=== PATIENT | female | born 1940 | race Caucasian/White ===

== ENCOUNTER → 2017-10-23 09:17 | Outpatient (CLI) | payer MEDICARE, OTHER, SELFPAY ==
--- NOTE | 2017-10-23 09:24 | CDU_ITS ---
Reason For Study: SYNCOPE Rt. Velocities/BP Lt. Velocities/BP Prox CCA 82.7/8.8 cm/sec. Prox CCA 79.2/11.7 cm/sec. Mid CCA 83.3/12.9 cm/sec. Mid CCA 76.8/11.1 cm/sec. Dist CCA 83.3/12.9 cm/sec. Dist CCA 72.7/11.1 cm/sec. Prox ICA 96.2/15.9 cm/sec. Prox ICA 233.0/39.3 cm/sec. Mid ICA 179.0/28.5 cm/sec. Mid ICA 238.0/38.0 cm/sec. Dist ICA 117.0/2.2 cm/sec. Dist ICA 127.0/20.3 cm/sec. Rt. ICA/CCA = 2.2. Lt. ICA/CCA = 3.1. Prox ECA 263.0/9.2 cm/sec. Prox ECA 246.0/11.8 cm/sec. Rt. Vert. 59.2/10.6 cm/sec. Lt. Vert. 63.9/12.3 cm/sec. Right Extracranial There is intimal thickening but no significant atherosclerotic plaque noted in the right common carotid artery. There is heterogeneous, irregular atherosclerotic plaque noted in the right internal carotid artery. There is heterogeneous, irregular atherosclerotic plaque noted in the right external carotid artery. Antegrade flow is noted in the right vertebral artery. Left Extracranial There is heterogeneous, irregular atherosclerotic plaque noted in the left common carotid artery. There is heterogeneous, irregular atherosclerotic plaque noted in the left internal carotid artery. There is heterogeneous, irregular atherosclerotic plaque noted in the left external carotid artery. Antegrade flow is noted in the left vertebral artery. Procedure Carotid Duplex [id number]. Exam performed in department. 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 Moderate stenosis right external carotid Irregular calcific plague at the proximal left internal carotid with >70% stenosis. Moderate stenosis left external carotid Patent and antegrade vertebrals bilaterally Ordering Physician: Tomi Grider Referring Physician: Hailee Hardin Performed By: Rochelle Olson RVT
--- NOTE | 2017-10-23 10:15 | ECHOD_ITS ---
Reason For Study: Palps, SOB Procedure This was a 2D Doppler, Color Flow transthoracic echocardiogram. Exam performed in department. Left Ventricle Normal LV size. Moderate concentric left ventricular hypertrophy. Left ventricular systolic function is normal. The estimated ejection fraction is 65 %. Transmitral diastolic flow velocities suggest moderate (stage 2) diastolic dysfunction (pseudonormal pattern). No regional wall motion abnormalities noted. Right Ventricle Normal RV size. Normal systolic function. Atria Normal left atrium. Normal right atrium. Mitral Valve Normal mitral valve. Mild (1+) eccentric mitral valve insufficiency. Tricuspid Valve Normal tricuspid valve. Mild (1+) tricuspid valve insufficiency. Pulmonary artery systolic pressure is 28 mmHg. Aortic Valve Trisinus/trileaflet aortic valve. Mild focal aortic valve calcification. Pulmonic Valve Normal pulmonic valve. Great Vessels Normal aortic root. The pulmonary artery is normal size. Normal inferior vena cava. Pericardium/Pleural No pericardial effusion. MMode/2D Measurements & Calculations LVIDd: 4.4 cm IVSd: 1.5 cm LVOT diam: 2.2 cm LVIDs: 2.1 cm LVPWd: 1.4 cm LVOT area: 3.8 cm2 FS: 53.1 % Ao root diam: 3.4 cm LAV(MOD-bp): 48.0 ml LA A4 area: 14.7 cm2 LA dimension: 4.7 cm LAV(MOD-bp) Indexed: 25.2 ml/m2 LAV(MOD-sp2): 61.2 ml LAV(MOD-sp4): 37.2 ml RA A4 area: 13.0 cm2 Doppler Measurements & Calculations MV E max aurelio: 125.2 cm/sec Lat Peak E' Aurelio: 10.4 cm/sec Med Peak E' Aurelio: 4.8 cm/sec MV A max aurelio: 98.8 cm/sec E/E' lat: 12.0 E/E' med: 26.2 MV E/A: 1.3 Ao V2 max: 186.7 cm/sec LV V1 max: 126.6 cm/sec PA V2 max: 109.6 cm/sec Ao max P.9 mmHg LV V1 max P.4 mmHg VIVIAN(V,D): 2.6 cm2 TR max aurelio: 239.8 cm/sec TR max P.0 mmHg Interpretation Summary Normal LV size. Moderate concentric left ventricular hypertrophy. Left ventricular systolic function is normal. The estimated ejection fraction is 65 %. Transmitral diastolic flow velocities suggest moderate (stage 2) diastolic dysfunction (pseudonormal pattern). Ordering Physician: Tomi Grider Referring Physician: Hailee Hardin Performed By: Raven Gambino RDCS
== END ==
PROVIDERS: Family Provider Family Medicine; PCP Family Medicine; Visit Provider Internal Medicine Cardiovascular Disease
DX: R55 Syncope and collapse (principal); I25.10 Atherosclerotic heart disease of native coronary artery without angina pectoris; Z95.1 Presence of aortocoronary bypass graft; R06.00 Dyspnea, unspecified; R00.2 Palpitations
CPT/HCPCS: 93306; 93880

== ENCOUNTER → 2017-11-17 14:39 | Outpatient (CLI) | payer MEDICARE, OTHER, SELFPAY ==
--- NOTE | 2017-11-17 14:41 | CT_ITS ---
STUDY: CT ANGIOGRAM OF THE NECK WITH IV CONTRAST. REASON FOR EXAM: Female, 77 years old. Left carotid stenosis. RADIATION DOSAGE (If Supplied By Facility): CTDIvol = ( 20.8+14.7 ) mGy, DLP = ( 457.44 ) mGycm. Thank you Individualized dose optimization techniques were used for this CT.? TECHNIQUE: Isovue-370 100 mL IV contrast. Thin slice helical CT angiogram was performed of the neck with curve planar, coronal and sagittal MIP, and 3-D volumetric reformatted images saved to the PACS archive. COMPARISON: Ultrasound carotid Doppler 10/23/2017. FINDINGS: A complex solid enhancing nodule of the left thyroid gland requires additional characterization with ultrasound to rule out neoplasm. The nodule measures approximately 2.2 cm in diameter. Cervical and facial soft tissues within the [id number] otherwise exhibit no acute process. Craniofacial osseous structures are normal. The sinuses are acutely clear. The right maxillary sinus is developmentally small compared to the left. There is mild multilevel cervical spondylosis. There is upper thoracic kyphosis and mild osteopenia. There is evidence of prior median sternotomy. No acute intracranial process is evident. Limited evaluation of the intracranial vasculature reveals no acute abnormality. Aortic arch nondilated, mild atherosclerosis. Next line widely patent bovine cervical arch branching. Normal bilateral subclavian arteries. Right carotid artery mild plaque of the bulb and bifurcation, minimal narrowing of the proximal ICA, less than 50% stenosis. Left carotid artery moderate calcified plaque in the wall of the vessel at the bulb and bifurcation, with only very slight narrowing of the origin of the ICA, no significant stenosis. There is moderate narrowing of the origin of the external carotid artery. Approximately 50% stenosis. The internal carotid arteries are thereafter patent through the skull base to the [place]. Normal bilateral vertebral arteries, cervical course and intracranial. CT/CTA Neck W/WO Contrast IMPRESSION: There is no evidence of hemodynamically significant carotid artery stenosis. Mild plaque of the bulb and bifurcation on the right, mild to moderate plaque of the bulb and bifurcation on the left. Normal vertebral arteries. Electronically Signed: Flaquito Byrd, at 18:00 EDT Tel , Service support ,
[2017-11-17 15:06] LABS: CREATININE FINGERSTICK 0.7 mg/dL (0.55-1.02); EGFR FINGERSTICK > 60.0000 mL/min (>60)
== END ==
PROVIDERS: Family Provider Family Medicine; PCP Family Medicine; Visit Provider Surgery
DX: Z01.812 Encounter for preprocedural laboratory examination (principal); I65.22 Occlusion and stenosis of left carotid artery
CPT/HCPCS: 70498; Q9967

== ENCOUNTER 2017-12-04 11:15 | Day surgery (SDC) | payer MEDICARE, OTHER, SELFPAY ==
[2017-12-04] VITALS (7 sets, daily range): BP systolic 146–174; BP diastolic 49–60; PULSE 18–58; RESP 16–18; TEMP 36.2–37.1; O2SAT 93–96; BMI 27.6
[2017-12-04 11:46] LABS: Hematocrit 36.9 % (37-47); Hemoglobin 12.1 g/dl (12.0-15.0); Mean Corp Hgb Conc 32.8 g/gl (32-36); Mean Corpuscular Hgb 28.3 pg (27.0-32.0); Mean Corpuscular Volume 86.4 fL (81-99); Mean Platelet Vol. 10.9 fl (6.2-12.0); Platelet Count 151 K/mm3 (150-450); RBC Distribution Width CV 15.7 % (11.6-14.6); RBC Distribution Width SD 49.7 fl (35.1-43.9); Red Blood Count 4.27 M/mm3 (4.2-5.4); Scan Indicated on CBC? Y/N NO; White Blood Count 4.4 K/mm3 (4.4-11.0)
[2017-12-04 12:00] LABS: Bedside Glucose 174 mg/dL (70-110)
[2017-12-04 12:01] LABS: Anion Gap 10 (5-15); BUN 16 mg/dL (7-18); Calcium,Total 8.8 mg/dL (8.5-10.1); Chloride 103 mmol/L (98-107); Creatinine, Serum 1.07 mg/dL (0.55-1.02); EST Glomerular Filtration Rate 53 mL/min (>60); Est Glom Filt Rate - Afr Amer 64 mL/min (>60); Glucose 173 mg/dL (74-106); Potassium 3.8 mmol/L (3.5-5.1); Sodium Level 141 mmol/L (136-145)
[2017-12-04] MEDS: BUPIVACAINE LIPOSOME/PF 20 ML VIAL OPERA.SITE (12:44)
--- NOTE | 2017-12-04 13:30 | HEM_PTH ---
PATIENT: EKATERINA ROBERTS [place] [facility] [place][id number] AGE/SX: 77/F ROOM: RE12/04/[address]: Dr. David Lopez MD : 1940 BED: DIS: 12/04/2017 SPEC #: [id number] RECD: 12/05/17 10:20 STATUS: GEMA RETiarra #: [id number] CHEYANNE: 12/04/17 13:[address]: David Lopez DEPT: SURGICAL PATHOLOGY RECD BY: Danni Nice ENTERED: 12/05/17 11:24 SP TYPE: HEMORRHOID OTHR DR: aHilee Hardin DO Tissues: HEMORRHOIDS Procedures: Surgery Specimen Level III HEADER OPERATION: Hemorrhoidectomy PRE-OP DIAGNOSIS: Hemorrhoids TISSUE SUBMITTED: Hemorrhoids MICROSCOPIC DIAGNOSIS Hemorrhoids: Pieces of squamous mucosa with focal area of transitional zone mucosa with congested and dilated blood vessels consistent with hemorrhoid. SJ:cata 12/08/17 COMMENT Case has been reviewed in consultation with Dr. Cardenas who concurs with the above diagnosis. IDC:AM MICROSCOPIC DESCRIPTION Slides are reviewed. GROSS DESCRIPTION Received in fixative is one container labeled with the patient's name and designated hemorrhoids. The specimen consists of two glistening fragments of chen mucosa with attached hemorrhagic submucosal tissue that in aggregate measure 3.5 x 3 x 1.6 cm. No mass lesions are identified. Auto Damage Trainee sections are submitted in two cassettes. / AM:cata 12/05/17 TC:5 CPT: 73531
[2017-12-04] MEDS: Dibucaine 30 GM Tube 1 APPLIC (13:50)
--- NOTE | 2017-12-04 14:43 | PCM.DC.REC ---
Discharge Diet: No Restrictions Discharge Activity: Return to Normal Activity, May Not Drive - while you are taking narcotic pain medications. Do not drive, work with heavy equipment or sign legal documents for 24 hours after your surgery. Additional Activity Instructions:: Sitz baths in warm soapy water for approximately 20 minutes will be soothing. You may remove any Vaseline gauze per rectum tomorrow morning. He may apply the topical dibucaine numbing ointment every 2 hours as needed. I encourage utilizing mineral oil 30 cc within juice or food daily for 1 week. Allergies/Adverse Reactions: Allergies codeine Allergy (Unknown, Verified 12/03/17 09:51) Unknown adhesive tape Adverse Reaction (Verified 12/03/17 09:51) unknown Sulfa (Sulfonamide Antibiotics) Adverse Reaction (Verified 12/03/17 09:51) unknown Medications to take at Discharge citalopram 20 mg tablet 20 mg PO QDAY 10/01/17 ezetimibe 10 mg tablet 10 mg PO QDAY 10/01/17 fluticasone 50 mcg/actuation nasal spray,suspension 1 spray INTRANASAL QDAY PRN 10/01/17 gabapentin 300 mg capsule 600 mg PO BID cap 10/01/17 hydrochlorothiazide 25 mg tablet 25 mg PO QAM 10/01/17 insulin aspar prot-insulin aspart 100 unit/mL (70-30) subcutaneous pen 28 unit SC DAILY ml 10/01/17 insulin glargine (U-100) 100 unit/mL (3 mL) subcutaneous pen 16 unit SC QHS ml 10/01/17 levothyroxine 150 mcg capsule 150 mcg PO QDAY 10/01/17 lisinopril 40 mg tablet 40 mg PO QDAY 10/01/17 metformin ER 500 mg tablet,extended release 24 hr 500 mg PO BID 10/01/17 metoprolol succinate ER 50 mg tablet,extended release 24 hr 50 mg PO QDAY 10/01/17 olopatadine 0.2 % eye drops 1 drp OPHTHALMIC Q24H 10/01/17 omeprazole 40 mg capsule,delayed release 40 mg PO BID 10/01/17 tramadol 50 mg tablet 50 mg PO Q6H PRN 10/01/17 zolpidem 10 mg tablet 10 mg PO QHS 10/01/17 betamethasone dipropionate 0.05 % topical cream 1 applic TOPICAL QDAY PRN 10/30/17 amlodipine 10 mg tablet 5 mg PO QDAY tab 10/31/17 docusate sodium 100 mg capsule 100 mg PO BID 11/20/17 polyethylene glycol 3350 17 gram/dose oral powder 1 dose PO DAILY 11/20/17 Cholecalciferol (Vitamin D3) [Vitamin D3] 2,000 unit PO DAILY 12/03/17 Milk Thistle 250 mg PO DAILY 12/03/17 Mv-Mn/Folic Acid/Calcium/Vit K [Women's 50 Plus Daily Formula] 1 each PO DAILY 12/03/17 [place]-3 Fatty Acids/Fish Oil [Fish Oil 1,000 mg Capsule] 1 each PO DAILY 12/03/17 Metronidazole 250 mg PO TID #15 tab 12/04/17 Psyllium Husk (with Sugar) [Metamucil Packet] 3.4 gm PO DAILY #1 packet 12/04/17 traMADol [Ultram] 50 mg PO Q6H PRN PRN #10 tablet 12/04/17 The following prescriptions were given: traMADol [Ultram] 50 mg PO Q6H PRN PRN #10 tablet PRN Reason: Pain Psyllium Husk (with Sugar) [Metamucil Packet] 3.4 gm PO DAILY #1 packet Metronidazole 250 mg PO TID #15 tab Primary Care Physician: Hailee Hardin MD [Primary Care Provider] - Test Results: Test results from this visit will be discussed in further detail at your follow-up appointment, if applicable. Please Follow Up With: David Lopez MD - [phone] When: Plan to have a follow up approximately 3 weeks after surgery.
[2017-12-04] MEDS: Lubricating Jelly 60 GM Tube 30 GM TOPICAL (14:50)
[2017-12-04] MEDS: Bupivacaine 0.25% 30 ML Vial ×2 (15:50)
--- NOTE | 2017-12-04 15:54 | PCM.OPRPT ---
Problem List (1) Hemorrhoids Status: Acute Qualifiers: Hemorrhoid type: third degree Qualified Code(s): K64.2 - Third degree hemorrhoids Report of Operation Date of Procedure: 12/04/17 Pre-Operative Diagnosis: Grade 3 prolapsing internal and external hemorrhoids with bleeding Post-Operative Diagnosis: Same Surgery/Procedure Performed:: Extensive surgical hemorrhoidectomy Description of Surgical Findings:: Timeout and informed consent was obtained. 77-year-old female was taken out from. She was placed prone on the table. Cefotetan 2 g given intravenously. 0.25% Marcaine was used as a local anesthetic a total 35 cc was used. At the completion of the procedure Exparel diluted to a total of 30 cc was additionally injected. The perianal area was inspected. Posteriorly there was an internal hemorrhoidal bulk easy friability bleeding with significant external component. An apical suture of 2-0 chromic was placed. The skin was sharply excised and the external anus. I then identified the sphincter complex and preserve that. Harmonic Scalpel was used to excise the exuberant internal and external disease. I then used the running locking 2-0 chromic. Obtaining hemostasis was indeed challenging. All needle holes bled readily. I placed an apical suture of 0 Vicryl as a figure 8 suture to assure control of the major venous stalk. Having approximated that mucosa I dressed a similar area anteriorly. It had significant amount of internal and external disease but not the friable bleeding component at the posterior aspect.. Similar procedure was performed with an apical suture of 2-0 chromic harmonic excision of the mass and then a roftyo-fo-dutlu suture of 0 Vicryl. Mucosa was approximated with running 2-0 chromic. Additional 2-0 chromic was used to achieve hemostasis. On the right lateral aspect there is an internal hemorrhoid which I ligated with a 2-0 chromic mewzxs-fb-rznhm suture. On the left lateral aspect there was a hypertrophic papilla that I excised with a harmonic scalpel. I then utilized a figure 8 suture of 2-0 chromic to ligate internal disease on the left as well. At the completion of the procedure pressure was held for hemostasis. I then utilized thrombin 5000 cc and saturated a Gelfoam pad loaded and inserted it per rectum. Cover dressings of Vaseline and gauze applied. Sponge and instrument and needle counts were reported the surgeon be correct. Specimen includes the hemorrhoids. Drains none. Blood loss 150 cc. She was taken to the recovery area in sagittal condition there is no apparent complication. David Lopez M.D., F.A.C.S. Type of Anesthesia:: Local MAC Anesthesiologist: Dimas Murillo
[2017-12-04] MEDS: traMADol 50 MG Tablet PO (17:46)
== END 2017-12-04 18:25 | disposition home or self-care (01) ==
LOC: SDC 11:15 → AC 11:17
PROVIDERS: Family Provider Family Medicine; PCP Family Medicine; Visit Provider Surgery
PROC: (CPT 46260; principal; 2017-12-04 13:15)
DX: K64.2 Third degree hemorrhoids (principal); K21.9 Gastro-esophageal reflux disease without esophagitis; I65.23 Occlusion and stenosis of bilateral carotid arteries; E11.40 Type 2 diabetes mellitus with diabetic neuropathy, unspecified; K76.0 Fatty (change of) liver, not elsewhere classified; I10 Essential (primary) hypertension; E03.9 Hypothyroidism, unspecified; E78.5 Hyperlipidemia, unspecified; I25.10 Atherosclerotic heart disease of native coronary artery without angina pectoris; Z95.1 Presence of aortocoronary bypass graft; Z86.73 Personal history of transient ischemic attack (TIA), and cerebral infarction without residual deficits; Z79.4 Long term (current) use of insulin
CPT/HCPCS: 00902; 46260; 80048; 82962; 85027; 88304; J7120; J3490

== ENCOUNTER → 2018-05-19 13:29 | Outpatient (CLI) | payer MEDICARE, OTHER, SELFPAY ==
[2018-03-26 14:20] VITALS: BMI 28.4
--- NOTE | 2018-05-19 13:33 | CDU_ITS ---
Reason For Study: Bilateral carotid stenosis Rt. Velocities/BP Lt. Velocities/BP Prox CCA 87.4/9.97 cm/sec. Prox CCA 74.5/8.21 cm/sec. Mid CCA 75.6/11.1 cm/sec. Mid CCA 71.5/12.3 cm/sec. Dist CCA 65.7/11.1 cm/sec. Dist CCA 63.3/11.7 cm/sec. Prox ICA 107/25.9 cm/sec. Prox ICA 233/39.3 cm/sec. Mid ICA 171/25.5 cm/sec. Mid ICA 194/41.9 cm/sec. Dist ICA 107/21.2 cm/sec. Dist ICA 182/32.7 cm/sec. Rt. ICA/CCA = 2.26. Lt. ICA/CCA = 3.26. Prox ECA 202 cm/sec. Prox ECA 164 cm/sec. Rt. Vert. 69.2/12.3 cm/sec. Lt. Vert. 55.8/9.43 cm/sec. Right Extracranial There is intimal thickening but no significant atherosclerotic plaque noted in the right common carotid artery. There is heterogeneous, irregular atherosclerotic plaque noted in the right internal carotid artery. There is heterogeneous, irregular atherosclerotic plaque noted in the right external carotid artery. Antegrade flow is noted in the right vertebral artery. Left Extracranial There is heterogeneous, smooth atherosclerotic plaque noted in the left common carotid artery. There is heterogeneous, irregular atherosclerotic plaque noted in the left internal carotid artery. There is heterogeneous, irregular atherosclerotic plaque noted in the left external carotid artery. Antegrade flow is noted in the left vertebral artery. There is heterogeneous, irregular atherosclerotic plaque noted in the left bulb. Procedure Carotid Duplex [id number]. Exam performed in department. Interpretation Summary Calcific irregular plague at the proximal right internal and external carotid arteries. 50-69% stenosis right internal carotid 50-99% stenosis right external carotid Calcific irregular plague at the proximal left internal and external carotid arteries. >70% stenosis left internal carotid <50% stenosis left external carotid Patent and antegrade vertebrals bilaterally Ordering Physician: David Lopez Referring Physician: Hailee Hardin Performed By: Rochelle Olson RVT and Student
== END ==
PROVIDERS: Family Provider Family Medicine; PCP Family Medicine; Referring Provider Surgery; Visit Provider Surgery
DX: I65.23 Occlusion and stenosis of bilateral carotid arteries (principal)
CPT/HCPCS: 93880

== ENCOUNTER → 2018-05-28 14:15 | Outpatient (CLI) | payer MEDICARE, OTHER, SELFPAY ==
[2018-05-25 12:58] VITALS: BMI 28.4
--- NOTE | 2018-05-28 14:39 | US_ITS ---
STUDY: THYROID ULTRASOUND REASON FOR EXAM: Female, 78 years old. Nodules TECHNIQUE: Ultrasound evaluation of the thyroid was performed with real-time and static arango-scale imaging. COMPARISON: None. FINDINGS: RIGHT LOBE: Status post right thyroidectomy. LEFT LOBE: Status post left thyroidectomy. There is a 2.3 x 2.0 x 1.5 cm complex nodule at the left thyroid bed. US/Thyroid IMPRESSION: Complex nodule is noted in the left thyroid bed. Patient is status post total thyroidectomy. Electronically Signed: Charles Gtz DO at 23:31 EST Tel [phone], Service support ,
== END ==
PROVIDERS: Family Provider Family Medicine; PCP Family Medicine; Referring Provider Physician Assistant; Visit Provider Physician Assistant
DX: E04.1 Nontoxic single thyroid nodule (principal)
CPT/HCPCS: 76536

== ENCOUNTER → 2018-06-10 15:30 | Outpatient (CLI) | payer MEDICARE, OTHER, SELFPAY ==
--- NOTE | 2018-06-10 15:30 | ASPS_PTH ---
PATIENT: EKATERINA ROBERTS LOC: [facility] U#:[id number] AGE/SX: 84/F ROOM: RE06/10/[address]: Dr. David Lopez MD : 1940 BED: DIS: SPEC #: [id number] RECD: 06/11/18 08:18 STATUS: GEMA EV #: [id number] CHEYANNE: 06/10/18 15:[address]: David Lopez DEPT: CYTOLOGY RECD BY: Bebeto Oneil ENTERED: 06/11/18 12:15 SP TYPE: ASPIRATION OTHR DR: Hailee Hardin DO Tissues: Thyroid gland, NOS Procedures: Special Stain Group II Cytology Other HEADER OPERATION: Left thyroid FNA PRE-OP DIAGNOSIS: Left thyroid nodule TISSUE SUBMITTED: Left thyroid slides x6 DIAGNOSIS CYTOLOGY Fine needle aspiration, left thyroid nodule (smears): Adequate for evaluation. Negative, consistent with benign follicular/colloid nodule. Chronic inflammation. AM:cata 06/12/18 CYTOLOGY STUDY Slides are reviewed. CYTOLOGY GROSS Received are six smears labeled with the patient's name and designated per the requisition as left thyroid. Submitted for staining. / 06/11/18 TC:5 CPT: 75894
[2018-06-10 15:35] VITALS: BMI 28.4
== END ==
PROVIDERS: Family Provider Family Medicine; PCP Family Medicine; Referring Provider Surgery; Visit Provider Surgery
DX: E04.1 Nontoxic single thyroid nodule (principal)
CPT/HCPCS: 88161; 88313

== ENCOUNTER → 2018-09-24 | Outpatient (CLI) | payer MEDICARE, OTHER, SELFPAY ==
[2018-09-24 15:13] VITALS: BMI 28.8
--- NOTE | 2018-09-24 15:59 | RAD_ITS ---
STUDY: X-RAY CHEST REASON FOR EXAM: Female, 78 years old. Chest soreness for a couple of days. Patient has a loop in her chest that she claims has slipped down. TECHNIQUE: PA and lateral views of the chest. COMPARISON: None. FINDINGS: A wireless radiation monitor is seen in the lower medial soft tissues of the left anterior chest wall/breast. Prominent biapical interstitial densities have the appearance of chronic interstitial change. No consolidating infiltrate. There is no demonstrated pleural abnormality. Normal size heart. Sternal cerclage wires and vascular clips are present from a prior sternotomy and coronary artery bypass graft procedure (CABG). Normal mediastinum and pau. Normal visualized pulmonary arteries. There is atherosclerotic calcification of the aortic arch and descending thoracic aorta. There are minor multilevel degenerative changes and exaggerated kyphosis of the visualized thoracic spine. Normal visualized ribs, clavicles, and shoulders. There is no demonstrated abnormality of the visualized soft tissue structures of the upper abdomen. RAD/Chest PA and Lateral IMPRESSION: 1. Prior median sternotomy and CABG. 2. Wireless radiation monitor in the soft tissues of the medial inferior anterior left chest wall. 3. Chronic appearing interstitial densities in the bilateral lung apices. Electronically Signed: Enrrique Patel MD at 17:13 EDT , Service support ,
== END | disposition home or self-care (01) ==
LOC: RAD 15:58
PROVIDERS: Family Provider Family Medicine; PCP Family Medicine; Referring Provider Internal Medicine Cardiovascular Disease; Visit Provider Internal Medicine Cardiovascular Disease
DX: Z95.818 Presence of other cardiac implants and grafts (principal)
CPT/HCPCS: 71046

== ENCOUNTER → 2019-10-14 12:53 | Outpatient (CLI) | payer MEDICARE, SELFPAY ==
[2018-09-24 15:13] VITALS: BMI 28.8
--- NOTE | 2019-10-14 12:54 | US_ITS ---
STUDY: THYROID ULTRASOUND REASON FOR EXAM: Female, 79 years old. History of previous thyroidectomy, neck swelling TECHNIQUE: Ultrasound evaluation of the thyroid was performed with real-time and static arango-scale imaging. COMPARISON: 05/28/2018 FINDINGS: The thyroid has been previously removed. There is a stable heterogeneous partially calcified nodule in the left thyroid bed measuring 2.2 x 1.9 x 1.5 cm essentially unchanged from the previous study. No new suspicious findings. The regional lymph nodes are normal. US/Thyroid IMPRESSION: Stable complex nodule in the left thyroid bed partially calcified, another six-month follow-up is recommended to assure stability. No new suspicious findings Electronically Signed: Enrrique Ross MD at 14:11 EDT , Service support ,
--- NOTE | 2019-10-14 13:17 | CDU_ITS ---
Reason For Study: carotid stenosis Rt. Velocities/BP Lt. Velocities/BP Prox CCA 73.4/12.1 cm/sec. Prox CCA 66.2/11.3 cm/sec. Mid CCA 70.8/12.1 cm/sec. Mid CCA 69.5/10.2 cm/sec. Dist CCA 70.8/10.8 cm/sec. Dist CCA 54.1/8.0 cm/sec. Prox ICA 143.0/33.4 cm/sec. Prox ICA 66.2/13.5 cm/sec. Mid ICA 122.9/24.3 cm/sec. Mid ICA 220.9/39.6 cm/sec. Dist ICA 117.4/22.5 cm/sec. Dist ICA 192.5/21.5 cm/sec. Rt. ICA/CCA = 2.0. Lt. ICA/CCA = 3.2. Prox ECA 204.7 cm/sec. Prox ECA 148.5 cm/sec. Rt. Vert. 48.7/6.9 cm/sec. Lt. Vert. 47.5/6.9 cm/sec. Right Extracranial There is intimal thickening but no significant atherosclerotic plaque noted in the right common carotid artery. There is heterogeneous, irregular atherosclerotic plaque noted in the right internal carotid artery. There is heterogeneous, irregular atherosclerotic plaque noted in the right external carotid artery. Antegrade flow is noted in the right vertebral artery. Left Extracranial There is heterogeneous, irregular atherosclerotic plaque noted in the left common carotid artery. There is heterogeneous, irregular atherosclerotic plaque noted in the left internal carotid artery. There is heterogeneous, irregular atherosclerotic plaque noted in the left external carotid artery. Antegrade flow is noted in the left vertebral artery. There is heterogeneous, irregular atherosclerotic plaque noted in the left bulb. Procedure Carotid Duplex [id number]. The exam was diagnostic. Exam performed in department. Interpretation Summary Irregular calcific plaque at the proximal right internal carotid artery with 50 to 69% stenosis. >50% stenosis right external carotid Irregular calcific plaque at the proximal left internal carotid artery with 50 to 69% stenosis (possibly closer to 69%) <50% stenosis left external carotid Patent, antegrade vertebrals bilaterally Findings have not progressed since the previous examination of May 19, 2018 Ordering Physician: David Lopez Performed By: Devan Quach RVT
== END ==
PROVIDERS: PCP Family Medicine; Referring Provider Surgery; Visit Provider Surgery
DX: E04.1 Nontoxic single thyroid nodule (principal); I65.23 Occlusion and stenosis of bilateral carotid arteries
CPT/HCPCS: 76536; 93880

== ENCOUNTER → 2020-01-12 05:34 | Outpatient (CLI) | payer MEDICARE, SELFPAY ==
[2019-12-30 13:49] VITALS: BMI 29.6
--- NOTE | 2020-01-12 13:13 | STRESSREP ---
Stress Test Report Pharmacologic myocardial perfusion stress test. 79-year-old lady with a history of coronary artery bypass surgery and hypertension. Stress protocol: Resting EKG demonstrates normal sinus rhythm with a rate of 63 bpm normal intervals are noted resting blood pressure is 164/70 mmHg. 0.4 mg of regadenoson was infused per usual protocol followed by rapid venous saline flush injection continuous EKG monitoring was performed. The maximum heart rate attained was 90 bpm which was 64% of max impacted heart rate the maximum workload was 1 metabolic equivalent. At rest there were no ST or T wave changes noted to suggest abnormal flow reserve at peak infusion nonspecific ST-T wave changes were noted. Myocardial perfusion protocol. 11.3 mCi of technetium 99m sestamibi was injected at rest. 0.4 mg of regadenoson was infused per usual protocol. At peak infusion 33.6 mCi of technetium 99m sestamibi was injected. Stress and rest images were reconstructed and compared in the short axis vertical long horizontal long axis. Gated images were also obtained Perfusion SPECT analysis: Review of the stress images demonstrate normal uptake of tracer noted in all areas of the myocardium the resting images similar demonstrate normal uptake of tracer noted in all areas of the myocardium. No areas of reversibility are noted suggest ischemia no previous infarct is noted. Gated SPECT analysis: The gated ejection fraction is noted to be 80%. Conclusion: Normal pharmacologic myocardial perfusion stress test. Preserved ejection fraction.
== END ==
PROVIDERS: PCP Family Medicine; Referring Provider Internal Medicine Cardiovascular Disease; Visit Provider Internal Medicine Cardiovascular Disease
DX: I25.10 Atherosclerotic heart disease of native coronary artery without angina pectoris (principal); Z95.1 Presence of aortocoronary bypass graft
CPT/HCPCS: 78452; 93017; A9500; A4216; J2785

== ENCOUNTER 2020-01-24 07:44 | Day surgery (SDC) | payer MEDICARE, SELFPAY ==
[2019-12-30 13:49] VITALS: BMI 29.6
--- NOTE | 2020-01-17 14:15 | RAD_ITS ---
HISTORY: pre heart cath, dyspnea ADDITIONAL HISTORY: None provided. COMPARISON: 09/24/2018 EXAMINATION/TECHNIQUE: XR Chest 2 Views Number of images including paperwork: 2 FINDINGS: LUNGS AND PLEURA: No consolidation, mass or pleural effusion. Minimal interstitial prominence appears similar. Apical pleural parenchymal scarring appears similar. CARDIAC SILHOUETTE: Stable. CABG changes. MEDIASTINUM AND KALIN: Unchanged aortic calcification and tortuosity. UPPER ABDOMEN: Unremarkable. SKELETON AND SOFT TISSUES: No acute findings. OTHER DEVICES AND HARDWARE: Left a small loop recorder. RAD/Chest PA and Lateral IMPRESSION: No acute cardiopulmonary abnormality. Apical pleural parenchymal scarring and minimal interstitial prominence appear similar. at [id number] Reported and signed by: Zaida James MD Electronically Signed: Zaida James MD at 7:57 EDT Tel , Service support ,
[2020-01-17 15:14] LABS: Absolute Lymphocyte Count 1.31 X10^3/uL (0.83-4.51); Absolute Neutrophil Count 3.8 X10^3/uL (2.0-7.7); Basophil# 0.06 X10^3/uL; Eosinophil# 0.17 X10^3/uL; Eosinophils% 2.8 % (0-5); Hematocrit 35.7 % (37-47); Hemoglobin 11.7 g/dL (12.0-15.0); Lymphocyte # 1.31 X10^3/ul (4.0); Lymphocyte % 21.7 % (19-41); Mean Corp Hgb Conc 32.8 g/dL (32-36); Mean Corpuscular Hgb 30.3 pg (27.0-32.0); Mean Corpuscular Volume 92.5 fL (81-99); Mean Platelet Vol. 10.9 fl (6.2-12.0); Monocyte# 0.63 X10^3/uL; Monocyte% 10.4 % (0-10); NRBC Flagged by Analyzer 0 % (0-5); Neutrophil # 3.83 X10^3/uL (2.7-7.7); Neutrophil % 63.6 % (47-70); Platelet Count 156 K/mm3 (150-450); RBC Distribution Width CV 13.2 % (11.6-14.6); RBC Distribution Width SD 44.9 fl (35.1-43.9); Red Blood Count 3.86 M/mm3 (4.2-5.4)
[2020-01-17 15:23] LABS: Anion Gap 7 (5-15); BUN 26 mg/dL (7-18); BUN/Creat Ratio 21.5 RATIO (10-20); Calcium,Total 8.7 mg/dL (8.5-10.1); Chloride 101 mmol/L (98-107); Creatinine, Serum 1.21 mg/dL (0.55-1.02); EST Glomerular Filtration Rate 45 mL/min (>60); Est Glom Filt Rate - Afr Amer 55 mL/min (>60); Glucose 259 mg/dL (74-106); Potassium 3.9 mmol/L (3.5-5.1); Sodium Level 135 mmol/L (136-145)
[2020-01-21 08:05] VITALS: BMI 29.6
--- NOTE | 2020-01-24 06:14 | HP_ITS ---
[facility] HPI History of Present Illness Details: EKATERINA ROBERTS, is a 79 F who presents to the office today for a follow up visit. She has a history of coronary artery disease status post coronary bypass surgery hypertension hyperlipidemia diabetes mellitus. She underwent quadruple coronary bypass surgery in 2004 . She says that she has been doing well other than fatigue and mild bilateral pitting edema she is also has some shortness of breath with activity as well as some palpitations. She has also had some chest discomfort which she describes as occasionally sharp but sometimes dull radiates from anterior to posterior and associated with some shortness of breath. She also says that she gets short of breath when she is talking. She has had occasional dizziness but no shorty syncope. She has had no neck arm or jaw discomfort suggest angina no claudication has been noted. She has also been compliant with all her medications. Her physical exam here today demonstrates clear lung sanchez regular rate and rhythm and no pedal edema. Intake Vital Signs 12/30/19 Height 5 ft 7 in 12/30/19 Weight: 189 lb 12/30/19 BMI 29.6 12/30/19 BP 141/74 H 12/30/19 Respiration 18 12/30/19 Pulse 64 12/30/19 Pulse Oximetry (%) 95 12/30/19 BMI 28.3 Intake Visit Reasons: 1 Y FU (r/s from -) Allergies codeine Allergy (Unknown, Verified 12/30/19 13:49) Unknown zolpidem [From Ambien] Allergy (Verified 12/30/19 13:49) syncope adhesive tape Adverse Reaction (Verified 12/30/19 13:49) unknown Sulfa (Sulfonamide Antibiotics) Adverse Reaction (Verified 12/30/19 13:49) unknown Medications citalopram 20 mg tablet 20 mg PO QDAY 10/01/17 [History Confirmed 12/30/19] gabapentin 300 mg capsule 600 mg PO BID cap 10/01/17 [History Confirmed 12/30/19] hydrochlorothiazide 25 mg tablet 25 mg PO QAM 10/01/17 [History Confirmed 12/30/19] insulin aspar prot-insulin aspart 100 unit/mL (70-30) subcutaneous pen 28 unit SC DAILY ml 10/01/17 [History Confirmed 12/30/19] lisinopril 40 mg tablet 40 mg PO QDAY 10/01/17 [History Confirmed 12/30/19] metformin 500 mg tablet,extended release 24 hr 500 mg PO BID 10/01/17 [History Confirmed 12/30/19] Cholecalciferol (Vitamin D3) [Vitamin D3] 2,000 unit PO DAILY 12/03/17 [History Confirmed 12/30/19] Mv-Mn/Folic AC/Calcium/Vit K1 [Women's 50 Plus Daily Formula] 1 ea PO DAILY 12/03/17 [History Confirmed 12/30/19] traMADol [Ultram] 50 mg PO Q6H PRN PRN #10 tab 12/04/17 [Rx Confirmed 12/30/19] dulaglutide 1.5 mg/0.5 mL subcutaneous pen injector 1.5 mg SC QWEEK 02/04/18 [History Confirmed 12/30/19] diltiazem HCl 180 mg capsule,extended release 24 hr 180 mg PO DAILY 03/26/18 [History Confirmed 12/30/19] cetirizine 10 mg capsule PO cap 09/24/18 [History Confirmed 12/30/19] melatonin 3 mg tablet 3 mg PO HS PRN 09/24/18 [History Confirmed 12/30/19] omeprazole 40 mg capsule,delayed release 40 mg PO DAILY cap 09/24/18 [History Confirmed 12/30/19] aspirin 81 mg tablet,delayed release 81 mg PO DAILY 10/03/18 [History Confirmed 12/30/19] metoprolol succinate 50 mg tablet,extended release 24 hr 50 mg PO QDAY #90 tab 10/06/19 [Rx Confirmed 12/30/19] ezetimibe 10 mg tablet 10 mg PO DAILY tab 12/30/19 [History Confirmed 12/30/19] isosorbide mononitrate 30 mg tablet,extended release 24 hr 30 mg PO DAILY #90 tab 12/30/19 [Rx Confirmed 12/30/19] levothyroxine 125 mcg tablet 125 mcg PO DAILY tab 12/30/19 [History Confirmed 12/30/19] Ejection fraction %: 65 to 70 PFSH Medical History Atherosclerosis of coronary artery of [place] heart without angina pectoris (Chronic) Essential (primary) hypertension (Chronic) Hyperlipidemia (Chronic) Peripheral arterial occlusive disease (Chronic) Bilateral carotid artery stenosis (Chronic) TIA (transient ischemic attack) (Resolved 2015) Carotid artery stenosis (Chronic) DVT (deep venous thrombosis) (Chronic) Hemorrhoid (Chronic) Hypothyroidism (Chronic) Left thyroid nodule (Chronic) Type 2 diabetes mellitus (Chronic) CVA (cerebral vascular accident) (Ruled-out) Surgical History H/O coronary artery bypass surgery (Chronic 01/13/05) H/O partial thyroidectomy (Resolved) H/O right inguinal hernia repair (Resolved) History of appendectomy (Resolved) History of hysterectomy (Resolved) History of open reduction and internal fixation (ORIF) procedure (Resolved) History of tonsillectomy (Resolved) Hx of cholecystectomy (Resolved) S/P hemorrhoidectomy (Resolved) Status post placement of implantable loop recorder (Inactive 2015) Family History Father CAD (coronary artery disease) Brother CAD (coronary artery disease) Social History (Updated 12/30/19 @ 14:[address] Tomi Grider MD) second hand exposure: No alcohol intake: never substance use type: does not use caffeine: Yes what type of physical activity do you participate in: walking frequency: 1-2 times per week seatbelt use: always ROS Const Const: Negative for fatigue, weakness, headache(s), frequent falls, difficulty sleeping or excessive sweating Eyes Eyes: Negative for loss of peripheral vision, transient loss of vision, blurry vision, double vision or tunnel vision ENT ENT: Negative for headache(s), dizziness, Nosebleed/epistaxis or balance problems Cardio Chest Pain: Yes (episodes w/ activity radiates from left chest to back) Frequency: daily Character: tightness Onset: exercise Location: left chest, other (radiates to back) Duration: minutes Relieving: rest Palpitations: No Edema: None Muscle aches with walking: None Resp Respiratory: Positive for SOB with activity and SOB at rest; negative for SOB orthopnea\SOB lying down, Cough or paroxysmal nocturnal dyspnea GI GI: Negative nausea, vomiting, heartburn or black,tarry stools : Negative for hematuria Musc Musc: Negative for muscle aches/ myalgia, muscle weakness, joint pain or balance problems Skin Skin: Negative non-healing lesions, rash or unusual bruising Neuro Neuro: Negative for dizziness, lightheadedness, near syncope, syncope, orthostatic symptoms, frequent falls, headache(s), weakness, blurry vision, double vision or lack of coordination [place] Hematologic/Lymphatic: Negative for easy bleeding or easy bruising Endo Endo: Negative for fatigue, excessive sweating or increased thirst/drinking Psych Psych: Negative for anxiety or depression Allergy Allergy/Immunology: Negative for hives, Negative for rash Cardiology Exam Const Appearance: cooperative, healthy appearing, no acute distress, well developed and well groomed Nutritional Appearance: average body habitus and well nourished Orientation: alert, awake and oriented x3 Head Head: normal to inspection, normocephalic and atraumatic Ears: hearing grossly normal bilaterally and external ears normal Nose: external nose normal, nares normal, nasal mucous membranes and turbinates normal, septum normal, no nasal discharge Face and Sinus: face symmetric Mouth: oral mucosae normal, tongue normal, oropharynx normal and moist mucous membranes Teeth and gingiva: dentition normal Throat: posterior oropharynx normal, tonsils normal and uvula midline Eyes General: appearance normal, both eyes and all related structures Eyelids: eyelids normal Conjunctivae: conjunctivae normal Pupils: PERRL, normal by confrontation and accommodation normal EOM: EOM intact bilaterally Neck Neck: normal visual inspection, trachea midline and no JVD JVD: +5 Carotids: normal carotid upstroke and bounding pulses Chest Chest inspection: normal inspection of the chest, symmetric chest movement and normal respiratory effort Auscultation: Bilateral: Clear to Auscultation Cardio Palpation: normal PMI Rate: regular rate Rhythm: regular rhythm Heart sounds: S1 normal, S2 normal and normal, physiologic split S2; negative rub, gallop or murmur GI GI: normal to inspection, soft, no hepatosplenomegaly and bowel sounds present Neuro General: alert, awake, oriented x3, gait normal, moves all extremities and no focal sensory deficit Skin Skin: no rashes or lesions noted Extremities Pulses: Normal: Right Femoral Pulse, Left Femoral Pulse, Right Dorsalis Pedis Pulse, Left Dorsalis Pedis Pulse, Right Posterior Tibial Pulse, Left Posterior Tibial Pulse, Right Radial Pulse, Left Radial Pulse Lower Extremity Edema: None: Bilateral Musculoskel Musculoskeletal: No joint tenderness Psych Psychological: normal affect Assessment & Plan 1. Dyspnea on minimal exertion R06.00 Plan She does have dyspnea on minimal exertion as well as chest pain. She says that she is having this frequently. I will like us to add isosorbide to her current regimen. She did have a mildly abnormal Lexiscan in 2014. I would set her up for another one and depending on the extent of any ischemia that is demonstrated further recommendations will be made. She appears to be on a decent regimen of anti-angina medications. Her most recent echocardiogram in October 2017 demonstrated an ejection fraction of 65% with stage I diastolic dysfunction. 2. H/O coronary artery bypass surgery Z95.1 CABG x 4: CABAN-LAD, SVG-OM1, SVG-D1, SVG-Distal RCA 01/13/2005 Plan She is status post coronary artery bypass surgery as noted above. This will be further evaluated with a stress testing. Orders Orders: Nuclear Stress Test - Chemical Today 3. Essential (primary) hypertension I10 Plan Her blood pressure appears to be under good control at this time now not recommend that we make any change with respect to the above. 4. Pure hypercholesterolemia E78.00 Plan She will continue with risk factor modification. She is on acetamide. Plan Detail Other Medications New: isosorbide mononitrate ER 30 mg PO DAILY 90 tabs 3RF Follow Up 6 Months (mmm) Coding Level of Care Code Off vis,est,level 4 Diagnoses Dyspnea on minimal exertion R06.00 H/O coronary artery bypass surgery Z95.1 Essential (primary) hypertension I10 Pure hypercholesterolemia E78.00 ??Hyperlipidemia type: pure hypercholesterolemia Coding Level of Care Code Off vis,est,level 4 Diagnoses Dyspnea on minimal exertion R06.00 H/O coronary artery bypass surgery Z95.1 Essential (primary) hypertension I10 Pure hypercholesterolemia E78.00 ??Hyperlipidemia type: pure hypercholesterolemia Supplemental Info Supplemental Information Diagnostics Pacemaker Check 04/08/19 Chest X-Ray 09/24/18
--- NOTE | 2020-01-24 09:39 | CL.D_ITS ---
Patient Name: EKATERINA ROBERTS Study Date: 01/24/2020 Performing: Tomi Grider MD Ht: 66.92 inches 170 cm : 1940 Wt: 189.6 lbs 86 kg Age: 79 Gender: female BSA: 1.98 PROCEDURE(S) PERFORMED RB18-BGI/COR/CABG CLINICAL PROFILE AND INDICATIONS Indications: Suspected CAD Heart Failure: None Stress/Imaging Date: 12/30/2019Stress Test with SPECT MPI: Positive Intermediate Risk CAD Presentations: Stable angina. CONCLUSIONS Coronary artery disease with known occlusion of the left anterior descending artery, left circumflex artery, and right coronary artery. The left internal mammary artery to the left anterior descending artery is patent with distal LAD disease; saphenous vein graft to the obtuse marginal branch is paten t; saphenous vein graft to the right coronary artery is patent; saphenous vein graft to the diagonal vessel is patent RECOMMENDATIONS Medical therapy DESCRIPTION OF PROCEDURE The patient arrived to the procedure lab. The risks and benefits of the procedure as well as a full d escription of our services here and current unavailability of surgical backup were fully explained to the patient and/or their significant other prior to the catheterization. The Timeout was completed, verifying the correct patient and procedure. The patient's procedural site was prepped and draped in the usual fashion. Local anesthetic was given subcutaneously to left radial region with Lidocaine 2%. Using a modified Seldinger technique, arterial access was obtained via the left radial artery, a 6Fr sheath was inserted. Left internal mammary artery graft to the LAD selective angiography was perfor med in multiple views using a 5 Fr. IM catheter. Left Coronary Artery selective angiography was perfo rmed in multiple views using a 5 Fr. JL4 catheter. Right Coronary Artery selective angiography was th en performed in multiple views using a 5 Fr. 3DRC (Anil) catheter. Saphenous Vein graft to the RCA selective angiography was performed in multiple views using a 5 Fr. 3DRC (Anil) catheter. Saphenous Vein graft to the RCA selective angiography was performed in multiple views using a 5 Fr. AR MOD catheter. Saphenous Vein graft to the OM 1 selective angiography was performed in mul tiple views using a 5 Fr. AR MOD catheter. Saphenous Vein graft to the DIAG 1 selective angiography w as performed in multiple views using a 5 Fr. AR MOD catheter.The arterial sheath was pulled and a TR Band was applied for hemostasis CORONARY ANGIOGRAPHY DOMINANCE: Right Dominant LEFT HEART ASSESSMENT Left Ventricular Ejection Fraction: by Echo 60 % LEFT MAIN: Mild calcification, Non-obstructive LEFT ANTERIOR DESCENDING ARTERY: MID LAD: is occluded CIRCUMFLEX ARTERY: MID CIRC: is occluded RIGHT CORONARY ARTERY: PROX RCA: 90 % Stenosis GRAFTS: CABAN graft to the Mid LAD is patent Saphenous Vein graft to the RCA is patent Saphenous Vein graft to the 2nd OM is patent Saphenous Vein graft to the 1st Diagonal is patent COMPLICATIONS No Complications PROCEDURE MEDICATIONS Versed 1 mg IV Fentanyl 50 mcg IV Versed 1 mg IV Baby Aspirin (81mg) 1 Tabs PO @ 01/24/2020 08:12:30 Heparin diluted in 23cc Heparinized saline. Patient given 10cc IA of this solution. 01/24/2020 08:50: 56 Verapamil 2.5mg, Ntg 100mcgs, 2000 units of Heparin diluted in 23cc Heparinized saline. Patient give n 10cc IA of this solution. 01/24/2020 08:50:56 SUMMARY OF HEMODYNAMIC DATA Time AIR REST ECG 08:13:53 AO 95/58 (74) SA 08:54:41 AO 134/59 (88) 09:06:03 Signed By Tomi Grider MD On 01/24/2020 09:37:50 Tomi Grider MD
== END 2020-01-24 11:20 | disposition home or self-care (01) ==
LOC: CLSP 07:44
PROVIDERS: PCP Family Medicine; Referring Provider Internal Medicine Cardiovascular Disease; Visit Provider Internal Medicine Cardiovascular Disease
DX: R06.00 Dyspnea, unspecified (principal); I25.118 Atherosclerotic heart disease of native coronary artery with other forms of angina pectoris; Z95.1 Presence of aortocoronary bypass graft; I10 Essential (primary) hypertension; E78.00 Pure hypercholesterolemia, unspecified; E11.9 Type 2 diabetes mellitus without complications; E78.5 Hyperlipidemia, unspecified; Z79.4 Long term (current) use of insulin; Z79.82 Long term (current) use of aspirin; Z88.2 Allergy status to sulfonamides; Z88.8 Allergy status to other drugs, medicaments and biological substances
CPT/HCPCS: 36415; 71046; 80048; 85025; 93455; 99152; 99153; J7040; Q9967; C1769; C1894

== ENCOUNTER → 2020-05-19 15:50 | Outpatient (CLI) | payer MEDICARE, SELFPAY ==
[2020-05-19 14:59] VITALS: BMI 31.0
--- NOTE | 2020-05-19 16:13 | RAD_ITS ---
STUDY: X-RAY CHEST REASON FOR EXAM: Female, 80 years old. SOB; CHF TECHNIQUE: PA and lateral views of the chest. COMPARISON: 01/17/2020 FINDINGS: Insertable panel monitor which is unchanged. Status post median sternotomy. The lungs are clear and expanded. Small left pleural effusion. Normal size heart. Normal mediastinum and pau. Normal visualized pulmonary arteries. Normal visualized aortic arch and descending thoracic aorta. Normal visualized thoracic spine. Normal visualized ribs, clavicles, and shoulders. There is no demonstrated abnormality of the visualized soft tissue structures of the upper abdomen. RAD/Chest PA and Lateral IMPRESSION: Small left pleural effusion. Electronically Signed: Flaquito Olson MD at 6:43 EST Tel , Service support ,
[2020-05-19 17:18] LABS: Absolute Lymphocyte Count 1.35 X10^3/uL (0.83-4.51); Absolute Neutrophil Count 4.5 X10^3/uL (2.0-7.7); Basophil# 0.06 X10^3/uL; Basophil% 0.8 % (0-1); Eosinophil# 0.28 X10^3/uL; Hematocrit 36.2 % (37-47); Hemoglobin 11.5 g/dL (12.0-15.0); Lymphocyte # 1.35 X10^3/ul (4.0); Lymphocyte % 19.1 % (19-41); Mean Corp Hgb Conc 31.8 g/dL (32-36); Mean Corpuscular Hgb 29.3 pg (27.0-32.0); Mean Corpuscular Volume 92.1 fL (81-99); Mean Platelet Vol. 10.6 fl (6.2-12.0); Monocyte# 0.82 X10^3/uL; Monocyte% 11.6 % (0-10); NRBC Flagged by Analyzer 0 % (0-5); Neutrophil % 63.8 % (47-70); Platelet Count 193 K/mm3 (150-450); RBC Distribution Width CV 14.1 % (11.6-14.6); Red Blood Count 3.93 M/mm3 (4.2-5.4); White Blood Count 7.1 K/mm3 (4.4-11.0)
[2020-05-19 17:43] LABS: BNP,B-Type NATRIURETIC PEPTIDE 124.3 pg/mL (0-100)
[2020-05-19 17:54] LABS: AST(SGOT) 28 U/L (15-37); Alanine Aminotransfer ALT/SGPT 22 U/L (13-56); Albumin, Serum 3.1 g/dL (3.2-5.0); Alkaline Phosphatase 93 U/L (45-117); Anion Gap 8 (5-15); BUN 28 mg/dL (7-18); BUN/Creat Ratio 21.9 RATIO (10-20); Bilirubin, Direct 0.24 mg/dL (0.00-0.30); Calcium,Total 8.9 mg/dL (8.5-10.1); Chloride 102 mmol/L (98-107); Creatinine, Serum 1.28 mg/dL (0.55-1.02); EST Glomerular Filtration Rate 42 mL/min (>60); Est Glom Filt Rate - Afr Amer 51 mL/min (>60); Globulin 4.1 g/dL (2.2-4.2); Glucose 164 mg/dL (74-106); Potassium 3.9 mmol/L (3.5-5.1); Protein, Total 7.2 g/dL (6.4-8.2); Sodium Level 136 mmol/L (136-145)
== END ==
PROVIDERS: PCP Family Medicine; Referring Provider Internal Medicine Cardiovascular Disease; Visit Provider Internal Medicine Cardiovascular Disease
DX: R06.02 Shortness of breath (principal); R18.8 Other ascites
CPT/HCPCS: 36415; 71046; 80048; 80076; 83880; 84443; 85025

== ENCOUNTER → 2020-05-22 13:32 | Outpatient (CLI) | payer MEDICARE, SELFPAY ==
[2020-05-19 14:59] VITALS: BMI 31.0
--- NOTE | 2020-05-24 10:58 | US_ITS ---
STUDY: ABDOMINAL ULTRASOUND REASON FOR EXAM: Female, 80 years old. Ascites TECHNIQUE: Transabdominal ultrasound was performed with real-time and static arango scale imaging. TECHNICAL QUALITY: Adequate. COMPARISON: None. FINDINGS: Liver: The liver measures 18.1 cm. There is a heterogeneous echogenicity of the liver. Liver has a nodular contour in keeping with cirrhosis. The bile ducts are within normal limits. There is hepatic color flow. The direction of portal flow is hepatopetal. There is no demonstrated mass lesion. Portal vein measurement: Gallbladder: The patient is status post cholecystectomy. Common Bile Duct (C.B.D.): The common bile duct measures 5.8 mm. Pancreas: Normal size of the head, body and tail of the pancreas. There is normal echogenicity of the pancreas. There is a 1.5 cm x 1.3 cm x 0.8 cm hypoechoic solid nodule in the head of the pancreas. Spleen: There is splenomegaly. The spleen measures 12.8 cm x 6.4 cm x 5.5 cm. Right Kidney: Normal size of the right kidney. The right kidney measures 10.2 cm x 5.6 cm x 4.3 cm. Normal renal cortex. The right cortex measures 1.0 cm. There is a 2 cm x 2 cm x 1.8 cm cyst. There is no right hydronephrosis. Left Kidney: Normal size of the left kidney. The left kidney measures 10.6 cm x 4.9 cm x 5.6 cm. Normal renal cortex. The left cortex measures 1.0 cm. There is no demonstrated renal mass or cyst. There is no left hydronephrosis. There is mild ascites. US/Abdomen Complete IMPRESSION: Heterogeneous appearance of the liver with the nodular cortical appearance suggestive of a cirrhosis. Status post cholecystectomy. 1.5 cm x 1.3 cm x 0.8 cm hypoechoic solid nodule in the head of the pancreas. Mild degree of ascites. Electronically Signed: Randy Chanel MD at 12:36 EST , Service support ,
--- NOTE | 2020-05-24 10:58 | ECHOD_ITS ---
Reason For Study: CHF Procedure This was a 2D Doppler, Color Flow transthoracic echocardiogram. Exam performed in department. Left Ventricle Normal LV size. Left ventricular systolic function is normal. The estimated ejection fraction is 60 %. No regional wall motion abnormalities noted. Right Ventricle Normal RV size. Normal systolic function. Atria Normal left atrium. Normal right atrium. Mitral Valve Moderate focal mitral valve thickening. Mild (1+) eccentric mitral valve insufficiency. Tricuspid Valve Normal tricuspid valve. Mild tricuspid valve insufficiency. Pulmonary artery systolic pressure is 22 mmHg. Aortic Valve Trisinus/trileaflet aortic valve. Mild focal aortic valve calcification. Pulmonic Valve Normal pulmonic valve. Great Vessels Normal aortic root. The pulmonary artery is normal size. Normal inferior vena cava. Pericardium/Pleural No pericardial effusion. MMode/2D Measurements & Calculations LVIDd: 3.2 cm IVSd: 1.4 cm LVOT diam: 2.0 cm LVIDs: 2.2 cm LVPWd: 1.00 cm LVOT area: 3.0 cm2 RVDd: 2.9 cm FS: 32.6 % Ao root diam: 3.4 cm LAV(MOD-bp): 53.3 ml LA A4 area: 18.3 cm2 LA dimension: 4.3 cm LAV(MOD-bp) Indexed: 26.5 ml/m2 LAV(MOD-sp2): 52.9 ml LAV(MOD-sp4): 52.9 ml RA A4 area: 10.8 cm2 Time Measurements MV dec time: 0.26 sec Doppler Measurements & Calculations MV E max aurelio: 108.4 cm/sec Lat Peak E' Aurelio: 7.9 cm/sec Med Peak E' Aurelio: 4.3 cm/sec MV A max aurelio: 100.3 cm/sec E/E' lat: 13.7 E/E' med: 25.4 MV E/A: 1.1 MV V2 max: 126.2 cm/sec MV P1/2t max aurelio: 128.1 cm/sec Ao V2 max: 216.8 cm/sec MV max P.4 mmHg MV P1/2t: 107.6 msec Ao max P.8 mmHg MV V2 mean: 73.1 cm/sec MV dec slope: 348.7 cm/sec2 Ao V2 mean: 147.8 cm/sec MV mean P.5 mmHg Ao mean P.0 mmHg MV V2 VTI: 43.6 cm MVA(P1/2t): 2.0 cm2 Ao V2 VTI: 52.5 cm MVA(VTI): 2.4 cm2 VIVIAN(I,D): 2.0 cm2 VIVIAN(V,D): 1.8 cm2 LV V1 max: 126.5 cm/sec SV(LVOT): 102.9 ml PA V2 max: 102.1 cm/sec LV V1 max P.4 mmHg LV V1 mean P.7 mmHg LV V1 mean: 89.8 cm/sec LV V1 VTI: 34.3 cm TR max aurelio: 219.7 cm/sec TR max P.3 mmHg Interpretation Summary Normal LV size. Left ventricular systolic function is normal. The estimated ejection fraction is 60 %. Mild (1+) eccentric mitral valve insufficiency. Pulmonary artery systolic pressure is 22 mmHg. Ordering Physician: Tomi Grider Referring Physician: Hailee Lees Performed By: Mani Lyon RCS
== END ==
PROVIDERS: PCP Family Medicine; Referring Provider Internal Medicine Cardiovascular Disease; Visit Provider Internal Medicine Cardiovascular Disease
DX: R06.00 Dyspnea, unspecified (principal); R18.8 Other ascites; R06.02 Shortness of breath; I25.10 Atherosclerotic heart disease of native coronary artery without angina pectoris; I10 Essential (primary) hypertension; E78.5 Hyperlipidemia, unspecified; Z95.1 Presence of aortocoronary bypass graft
CPT/HCPCS: 76700; 87426; 87635; 93306; C9803; U0005; U0003

== ENCOUNTER 2020-07-22 07:47 | Emergency (ER) | payer MEDICARE, SELFPAY ==
[2020-05-19 14:59] VITALS: BMI 31.0
[2020-07-22 07:49] VITALS: BP 152/68; PULSE 83; RESP 24; TEMP 36.8; O2SAT 94; BMI 30.5
[2020-07-22 07:53] VITALS: BP 152/68; PULSE 83; RESP 24; TEMP 36.8; O2SAT 94
[2020-07-22 07:55] VITALS: O2SAT 93
--- NOTE | 2020-07-22 08:02 | RAD_ITS ---
STUDY: X-RAY CHEST REASON FOR EXAM: Female, 80 years old. Shortness of breath. TECHNIQUE: Single AP portable view of the chest. COMPARISON: 05/19/2020. FINDINGS: Moderate elevation of right hemidiaphragm is exam. No focal infiltrate seen. There is no demonstrated pleural abnormality. Sternal cerclage wires and vascular clips are present from a prior sternotomy and coronary artery bypass graft procedure (CABG). Normal mediastinum and pau. Normal visualized pulmonary arteries. There is atherosclerotic calcification of the aortic arch. Stable osseous structures. Small metallic density overlying the left upper quadrant unchanged. RAD/Chest 1 View (Portable) IMPRESSION: Elevation of the right hemidiaphragm. No focal infiltrate is seen. Electronically Signed: Scott Correia MD at 8:50 EDT Tel , Service support ,
--- NOTE | 2020-07-22 08:02 | EKG12_ITS ---
Test Reason : SOB Blood Pressure : / mmHG Vent. Rate : 080 BPM Atrial Rate : 080 BPM P-R Int : 188 ms QRS Dur : 096 ms QT Int : 430 ms P-R-T Axes : 045 -24 070 degrees QTc Int : 495 ms Normal sinus rhythm Possible Anterior infarct , age undetermined Abnormal ECG Confirmed by CHEVY RUFF, JUANCARLOS ([id number]), society editor BRANDY MEADE ([id number]) on 08/04/2020 1:02:38 PM Referred By: HUA Confirmed By:JUANCARLOS REECE MD
[2020-07-22 08:09] LABS: Absolute Lymphocyte Count 1.21 X10^3/uL (0.83-4.51); Absolute Neutrophil Count 4.6 X10^3/uL (2.0-7.7); Basophil# 0.07 X10^3/uL; Eosinophil# 0.19 X10^3/uL; Eosinophils% 2.8 % (0-5); Lymphocyte # 1.21 X10^3/ul (4.0); Lymphocyte % 17.8 % (19-41); Mean Corp Hgb Conc 31.7 g/dL (32-36); Mean Corpuscular Hgb 29.1 pg (27.0-32.0); Mean Corpuscular Volume 91.7 fL (81-99); Mean Platelet Vol. 10.4 fl (6.2-12.0); Monocyte# 0.73 X10^3/uL; Monocyte% 10.8 % (0-10); NRBC Flagged by Analyzer 0 % (0-5); Neutrophil # 4.57 X10^3/uL (2.7-7.7); Neutrophil % 67.3 % (47-70); Platelet Count 267 K/mm3 (150-450); RBC Distribution Width CV 15.7 % (11.6-14.6); Red Blood Count 4.47 M/mm3 (4.2-5.4); White Blood Count 6.8 K/mm3 (4.4-11.0)
--- NOTE | 2020-07-22 08:21 | ED.DCSUM_ITS ---
History of Present Illness Chief Complaint: Shortness of Breath Informant: Patient Narrative: Patient is an 80-year-old female with a past medical history of CAD, CKD, ascites, distant history of DVT who presents to the emergency department for shortness of breath. This has been present over the past 3 days. She does get lightheaded with this. She denies any chest pain. She does occasionally get palpitations. She has had these symptoms before in the past. She is currently residing at a group home and rehab for a foot fracture. She is complaining of bilateral lower leg pain. She has had some mild edema. The last time that she had her abdomen drained was 3 weeks ago which is typically the timeframe when she requires a repeat paracentesis. She denies any cough or fever/chills. She denies any known aggravating or relieving factors. Whenever she is up ambulating this does not make her symptoms worse. She is not on any blood thinning medications. She does have oxygen to use as needed. Apparently at the group home she was satting in the high 80s on room air. She has received her COVID vaccinations. Past Medical History - Allergies and Home Meds Allergies/Adverse Reactions: Allergies codeine Allergy (Unknown, Verified 05/19/20 14:54) Unknown zolpidem [From Ambien] Allergy (Verified 05/19/20 14:54) syncope adhesive tape Adverse Reaction (Verified 05/19/20 14:54) unknown Sulfa (Sulfonamide Antibiotics) Adverse Reaction (Verified 05/19/20 14:54) unknown Primary Care Physician: Hailee Lees DO [Primary Care Provider] - As soon as possible Prior records reviewed: Yes Lives: [facility] Smoking Status: Never smoker Review of Systems All systems negative except as indicated General: Denies: Chills, Fever, Sweats Eyes: Denies: Visual changes - bilaterally, Diplopia ENT: Denies: Rhinorrhea, Sore throat Cardiovascular: Denies: Chest pain, Palpitations Respiratory: Reports: Dyspnea. Denies: Cough, Dyspnea on exertion Gastrointestinal: Denies: Abdominal pain, Nausea, Vomiting, Diarrhea Genitourinary: Denies: Dysuria, Hematuria, Frequency Musculoskeletal: Reports: Swelling, Extremity Pain. Denies: Back pain Skin: Denies: Rash, Wounds Neurological: Denies: Headache, Weakness, Numbness Physical Exam Vital Signs/Narrative: Vital Signs Temp Pulse Resp BP Pulse Ox 07/22/20 07:53 98.3 F 83 24 H 152/68 H 94 07/22/20 07:49 98.3 F 83 24 H 152/68 H 94 Inital Vital Signs reviewed: Yes General: Well nourished, Well developed, No Acute Distress Head: Normocephalic, Atraumatic Eyes: Perrl, EOMI ENT: Moist mucous membranes, No rhinorrhea Neck: Supple, Nontender Cardiovascular: Regular rate, Regular rhythm, No murmurs Respiratory: No distress, CTA bilaterally, Chest nontender Abdomen: Soft, Nontender, Normal bowel sounds, - - Distention with ascites present. Back: Nontender, Normal Inspection Extremities: Nontender, Edema - Trace bilaterally. Negative for: Calf Tenderness Skin: Normal color, No rash Neurological: Alert, Oriented x3, Cranial nerves II-XII grossly intact, Normal Strength, Normal Sensation Psychological: Normal affect, Normal Mood Diagnostic/Tx/Re-eval Chest X-Ray - ED: - - Single view portable x-ray interpreted by myself. Clear lung sanchez. Normal cardiac silhouette. There is elevation the right hemidiaphragm. No large effusion appreciated. Sternal wires present. Agree with radiologist interpretation. - EKG Initial EKG Interpretation: - - Rate of 80 bpm and normal sinus rhythm. Normal intervals. Left axis deviation. No significant ST elevations or depressions. There are some nonspecific ST changes. No T wave abnormalities. - Medical Decision Making Patient presents to the emergency department for shortness of breath. This has been present for the past 3 days. She does get lightheaded with this. Upon arrival to the emergency department she is satting in the low 90s on room air. She is in no acute distress. She has no increased work of breathing. No associated chest pain. She has had these symptoms before in the past. Will check EKG, chest x-ray and basic lab work. Patient's lab work shows mild elevation of her bilirubin and alkaline phosphatase. She does not have any abdominal pain on examination. Her BNP is mildly elevated. X-ray does not show any signs of pulmonary vascular congestio n. She is satting well on room air and is in no acute distress. Her troponin is negative. She does not have a high white count and is not anemic. Her creatinine is mildly elevated compared to his baseline. Patient states that whenever she gets close to her paracentesis she does get the shortness of breath. I believe her symptoms are most likely related to the pressure from the ascites pushing up on her diaphragm. She is in agreement with this. She is supposed to have this drained on Friday but I recommend she call and try to get in sooner. She does feel comfortable waiting until this time. Did call the group home and spoke with the nurse taking care of her. I recommended that they try to contact the IR To get this drained hopefully Friday. She notes any worsening symptoms she can return to the emergency department anytime for more urgent drainage. This time I have very low concern for ACS, PE, PNA. She is discharged home in stable condition. All questions were answered. ED Disposition - Plan for ED Patient: Disposition: Home or Assisted Living Diagnosis: Dyspnea, Ascites, CKD (chronic kidney disease) Instructions: ED Ascites, ED Dyspnea Referrals: Hailee Lees, DO [Primary Care Provider] - As soon as possible Additional Instructions: Please attempt to get paracentesis performed on Friday instead of Friday. I believe that this is most likely was causing majority of her symptoms with the abdominal pressure pushing up on the diaphragm.
[2020-07-22 08:30] LABS: AST(SGOT) 56 U/L (15-37); Alanine Aminotransfer ALT/SGPT 32 U/L (13-56); Albumin, Serum 2.6 g/dL (3.2-5.0); Alkaline Phosphatase 166 U/L (45-117); Anion Gap 9 (5-15); BUN 33 mg/dL (7-18); BUN/Creat Ratio 20.1 RATIO (10-20); Bilirubin, Direct 0.34 mg/dL (0.00-0.30); Chloride 102 mmol/L (98-107); Creatinine, Serum 1.64 mg/dL (0.55-1.02); EST Glomerular Filtration Rate 32 mL/min (>60); Est Glom Filt Rate - Afr Amer 39 mL/min (>60); Estimated Creatinine Clearance 24.76 ml/min; Globulin 4.5 g/dL (2.2-4.2); Glucose 175 mg/dL (74-106); Potassium 5.3 mmol/L (3.5-5.1); Protein, Total 7.1 g/dL (6.4-8.2); Sodium Level 134 mmol/L (136-145)
[2020-07-22 08:53] VITALS: BP 143/62; PULSE 78; RESP 20; TEMP 36.6; O2SAT 93
[2020-07-22 10:04] VITALS: BP 142/63; PULSE 80; RESP 20; O2SAT 94
== END 2020-07-22 10:05 | disposition home or self-care (01) ==
PROVIDERS: Emergency Provider Emergency Medicine; PCP Family Medicine
DX: R06.00 Dyspnea, unspecified (principal); N18.9 Chronic kidney disease, unspecified; R18.8 Other ascites; I25.10 Atherosclerotic heart disease of native coronary artery without angina pectoris; Z86.718 Personal history of other venous thrombosis and embolism; Z88.2 Allergy status to sulfonamides; Z88.8 Allergy status to other drugs, medicaments and biological substances
CPT/HCPCS: 71045; 80048; 80076; 83880; 84484; 85025; 87426; 93005; 99285; A4216

== ENCOUNTER → 2020-07-26 11:40 | Outpatient (CLI) | payer MEDICARE, SELFPAY ==
[2020-05-19 14:59] VITALS: BMI 31.0
[2020-07-22 07:49] VITALS: BMI 30.5
--- NOTE | 2020-07-26 11:42 | US_ITS ---
PROCEDURE: ULTRASOUND GUIDED PARACENTESIS CLINICAL HISTORY: Female, 80 years old. ASCITES CONSENT: The risks, benefits and alternatives to the procedure were explained to the patient, and the patient agreed to the procedure and signed the consent. SEDATION: Local Anesthesia STERILE BARRIER TECHNIQUE: The following sterile barrier precautions were used during the procedure: hand hygiene; use of 2% chlorhexidine aseptic; use of a cap, mask, sterile gown, sterile gloves, sterile full body drape, and a large sterile sheet. PROCEDURE/TECHNIQUE: The risks, benefits, and alternatives to the procedure were explained to patient, and the patient agreed to the procedure and signed a consent form for the procedure. TECHNIQUE: Under the ultrasound guidance using sterile technique and after infiltration of the skin and subcutaneous soft tissues with 10 mL of lidocaine 1% a 5 Frisian drainage catheter is introduced in the lower part of the abdomen. 4850 mL of fluid were removed sample sent to lab for evaluation. The patient tolerated the procedure there was no immediate complication. FINDINGS: FLUID PRE-PROCEDURE There is posterior enhancement. The findings appear anechoic. There is no loculation. FLUID POST-PROCEDURE Amount of fluid drained: 4850 ml. US/Paracentesis with US IMPRESSION: Successful ultrasound-guided paracentesis. Electronically Signed: Noe Perez MD at 16:18 EDT Tel , Service support ,
[2020-07-26 11:53] VITALS: BP 136/72; BP 141/63; BP 145/67; BP 163/76; PULSE 78; PULSE 81; RESP 18; RESP 20; TEMP 36.9; O2SAT 96; O2SAT 97
== END ==
PROVIDERS: PCP Family Medicine; Referring Provider Internal Medicine; Visit Provider Internal Medicine
DX: R18.8 Other ascites (principal)
CPT/HCPCS: 49083

== ENCOUNTER → 2020-08-09 09:25 | Outpatient (CLI) | payer MEDICARE, SELFPAY ==
[2020-07-22 07:49] VITALS: BMI 30.5
--- NOTE | 2020-08-09 09:31 | US_ITS ---
STUDY: ABDOMINAL ULTRASOUND - 4 quadrants for ascites assessment. REASON FOR VISIT: Female, 80 years old ASCITES TECHNIQUE: Ultrasound evaluation of the 4 quadrants was performed with real-time and static arango-scale imaging. TECHNICAL QUALITY: Adequate. COMPARISON: None. FINDINGS: Imaging of the 4 quadrants was performed. No significant fluid for a safe paracentesis was seen. US/Abdomen Limited IMPRESSION: Not enough fluid for paracentesis. Electronically Signed: Randy Chanel MD at 14:06 EDT , Service support ,
--- NOTE | 2020-08-09 10:08 | NURSING ---
per dr curtis and ultrasound not enough fluid to remove, pt informed, víctor at [facility] notified, also notified to call if condition of patient changes prior to next scheduled appt. tranps[facility] for [facility] called
== END ==
PROVIDERS: PCP Family Medicine; Referring Provider Internal Medicine; Visit Provider Internal Medicine
DX: K74.60 Unspecified cirrhosis of liver (principal)
CPT/HCPCS: 76705

== ENCOUNTER → 2020-08-16 09:22 | Outpatient (CLI) | payer MEDICARE, SELFPAY ==
[2020-07-22 07:49] VITALS: BMI 30.5
--- NOTE | 2020-08-16 09:26 | US_ITS ---
PROCEDURE: Ultrasound guided paracentesis. DATE OF EXAMINATION: 08/16/2020. INDICATION: Female, 80 years old. Ascites. PHYSICIAN: Randy Chanel M.D. TECHNIQUE: The risks, benefits, and alternatives to the procedure were explained to the patient. The specific risks of bleeding, infection, and damage to bowel were detailed and accepted. Witnessed informed consent was obtained. The abdomen was ultrasonographically surveyed. An appropriate pocket of fluid was identified at the right lower quadrant. The skin were cleaned and prepped in the usual sterile fashion. Using ultrasound guidance, the peritoneal cavity was accessed with a 5-Cypriot paracentesis needle/catheter system. The trocar was removed. A total of 4500 ml of bre-colored fluid were removed from the peritoneal cavity. The catheter was removed and a sterile dressing was applied. The procedure was well tolerated. US/Paracentesis with US IMPRESSION: Ultrasound guided paracentesis. Electronically Signed: Randy Chanel MD at 10:38 EDT , Service support ,
[2020-08-16 09:50] VITALS: BP 113/75; BP 118/79; PULSE 75; PULSE 81; RESP 16; RESP 18; TEMP 36.6; O2SAT 96
== END ==
PROVIDERS: PCP Family Medicine; Referring Provider Internal Medicine; Visit Provider Internal Medicine
DX: K74.60 Unspecified cirrhosis of liver (principal)
CPT/HCPCS: 49083

== ENCOUNTER → 2020-08-23 09:37 | Outpatient (CLI) | payer MEDICARE, SELFPAY ==
--- NOTE | 2020-08-23 09:42 | US_ITS ---
STUDY: ABDOMINAL ULTRASOUND - RIGHT UPPER QUADRANT REASON FOR VISIT: Female, 80 years old ASCITES -- WITH ALBUMIN TECHNIQUE: Ultrasound evaluation of the right upper quadrant was performed with real-time and static arango-scale imaging. TECHNICAL QUALITY: Adequate. COMPARISON: None. FINDINGS: Imaging of the 4 quadrants was performed for assessment of ascites. A small amount of fluid is seen in the right lower quadrant. The paracentesis was not done due to the small amount of fluid. US/Abdomen Limited IMPRESSION: Small amount of fluid in the pelvis. The paracentesis was not performed at this time. Electronically Signed: Randy Chanel MD at 10:53 EDT , Service support ,
--- NOTE | 2020-08-23 10:19 | NURSING ---
[facility] let [facility] know that there was not enough fluid to remove and rescheduled pt for 12:30, on friday the 29 of august, nurse renee is aware.
== END ==
PROVIDERS: PCP Family Medicine; Referring Provider Internal Medicine; Visit Provider Internal Medicine
DX: K74.60 Unspecified cirrhosis of liver (principal)
CPT/HCPCS: 76705

== ENCOUNTER → 2020-08-29 13:02 | Outpatient (CLI) | payer MEDICARE, SELFPAY ==
--- NOTE | 2020-08-29 13:06 | US_ITS ---
PROCEDURE: Ultrasound guided paracentesis. DATE OF EXAMINATION: 08/29/2020. INDICATION: Female, 80 years old. Ascites. PHYSICIAN: Randy Chanel M.D. TECHNIQUE: The risks, benefits, and alternatives to the procedure were explained to the patient. The specific risks of bleeding, infection, and damage to bowel were detailed and accepted. Witnessed informed consent was obtained. The abdomen was ultrasonographically surveyed. An appropriate pocket of fluid was identified at the left lower quadrant. The skin were cleaned and prepped in the usual sterile fashion. Using ultrasound guidance, the peritoneal cavity was accessed with a 5-Icelandic paracentesis needle/catheter system. The trocar was removed. A total of 4400 ml of bre-colored fluid were removed from the peritoneal cavity. The catheter was removed and a sterile dressing was applied. The procedure was well tolerated. US/Paracentesis with US IMPRESSION: Ultrasound guided paracentesis. Electronically Signed: Randy Chanel MD at 14:16 EDT , Service support ,
[2020-08-29 13:12] VITALS: BP 117/47; BP 126/54; BP 138/62; BP 146/64; PULSE 74; PULSE 77; PULSE 81; RESP 18; RESP 20; TEMP 36.3; O2SAT 96; O2SAT 97
--- NOTE | 2020-08-29 14:08 | NURSING ---
[facility] was also informed of pt's next appts 09/12 at 1030 and 09/26 at 1030.
== END ==
PROVIDERS: PCP Family Medicine; Referring Provider Internal Medicine; Visit Provider Internal Medicine
DX: K74.60 Unspecified cirrhosis of liver (principal); R18.8 Other ascites
CPT/HCPCS: 49083

== ENCOUNTER 2020-09-08 11:42 | Inpatient (IN) | payer MEDICARE, MEDICAID, SELFPAY ==
[2020-09-08] VITALS (12 sets, daily range): BP systolic 106–126; BP diastolic 39–58; PULSE 62–71; RESP 13–19; TEMP 36.3–36.6; O2SAT 94–98; BMI 27.5; BMI 26.2
--- NOTE | 2020-09-08 12:08 | EKG12_ITS ---
Test Reason : GEN ILLNESS Blood Pressure : / mmHG Vent. Rate : 067 BPM Atrial Rate : 067 BPM P-R Int : 200 ms QRS Dur : 098 ms QT Int : 452 ms P-R-T Axes : 069 -19 042 degrees QTc Int : 477 ms Normal sinus rhythm Cannot rule out Anterior infarct , age undetermined Abnormal ECG Confirmed by JOSE RUFF, PALMER ([id number]), editorial assistant BRANDY MEADE ([id number]) on 09/12/2020 10:13:14 A M Referred By: DINORAH Confirmed By:GABBIE GARCIA MD
--- NOTE | 2020-09-08 12:09 | EX.ED.DYSGE1 ---
HPI History of Present Illness Chief Complaint: General Illness Informant: patient and family Onset/Context/Timing Onset: Weeks Narrative Narrative: Patient presents for evaluation from the [facility]. Patient's son is at bedside and provides much history. He reports she has been tired and more lethargic for the past week. This morning her blood pressure was low at 88/47. They also raise concern about her sodium being low. It appears that her sodium was 122 on September 05. Patient denies any recent falls. She does complain of sore throat and a headache. Son does states she had increased edema recently. They have been trying to balance her diuretics with her degree of swelling. [facility] Medical History Ascites Atherosclerosis of coronary artery of [place] without angina pectoris Bilateral carotid artery stenosis Carotid artery stenosis Cirrhosis CVA (cerebral vascular accident) Depression DVT (deep venous thrombosis) Essential (primary) hypertension Hemorrhoid History of abdominal paracentesis (06/16/20) Hyperlipidemia Hypothyroidism Left thyroid nodule Nonalcoholic fatty liver disease Peripheral arterial occlusive disease TIA (transient ischemic attack) (2016) Type 2 diabetes mellitus Home Medications citalopram 20 mg tablet 40 mg PO QDAY 10/01/17 [History Last Taken Unknown] gabapentin 300 mg capsule 600 mg PO BID cap 10/01/17 [History Last Taken Unknown] insulin aspar prot-insulin aspart 100 unit/mL (70-30) subcutaneous pen 24 unit SC DAILY ml 10/01/17 [History Last Taken Unknown] lisinopril 40 mg tablet 40 mg PO QDAY 10/01/17 [History Last Taken 01/24/20] metformin 500 mg tablet,extended release 24 hr 500 mg PO BID 10/01/17 [History Last Taken Unknown] cholecalciferol (vitamin D3) 2,000 unit PO DAILY 12/03/17 [History Last Taken Unknown] ar-xev-lsaoj-calcium carb-K1 1 ea PO DAILY 12/03/17 [History Last Taken Unknown] tramadol 50 mg PO Q6H PRN PRN #10 tab 12/04/17 [Rx Last Taken Unknown] dulaglutide 1.5 mg/0.5 mL subcutaneous pen injector 1.5 mg SC QWEEK 02/04/18 [History Last Taken Unknown] cetirizine 10 mg capsule 10 mg PO DAILY cap 09/24/18 [History Last Taken Unknown] melatonin 3 mg tablet 3 mg PO HS PRN 09/24/18 [History Last Taken Unknown] omeprazole 40 mg capsule,delayed release 40 mg PO DAILY cap 09/24/18 [History Last Taken Unknown] aspirin 81 mg tablet,delayed release 81 mg PO DAILY 10/03/18 [History Last Taken 01/24/20] ezetimibe 10 mg tablet 10 mg PO DAILY tab 12/30/19 [History Last Taken Unknown] levothyroxine 125 mcg tablet 125 mcg PO DAILY tab 12/30/19 [History Last Taken 01/24/20] furosemide 40 mg tablet 40 mg PO BID #90 tab 05/19/20 [Rx Last Taken Unknown] hydroxyzine HCl 25 mg tablet 25 mg PO QHS tab 05/19/20 [History Last Taken Unknown] metoprolol succinate 100 mg tablet,extended release 24 hr 100 mg PO QDAY #90 tab 05/19/20 [Rx Last Taken Unknown] lactulose 20 g PO BID 09/08/20 [History Last Taken Unknown] Allergy/AdvReac Type Severity Reaction Status Date / Time codeine Allergy Unknown Unknown Verified 09/08/20 11:46 zolpidem [From Ambien] Allergy syncope Verified 09/08/20 11:46 adhesive tape AdvReac unknown Verified 09/08/20 11:46 Sulfa (Sulfonamide AdvReac unknown Verified 09/08/20 11:46 Antibiotics) Family History Father CAD (coronary artery disease) Brother CAD (coronary artery disease) Surgical History H/O coronary artery bypass surgery (01/13/05) H/O partial thyroidectomy H/O right inguinal hernia repair History of appendectomy History of hysterectomy History of left heart catheterization (01/24/20) History of open reduction and internal fixation (ORIF) procedure History of tonsillectomy Hx of cholecystectomy S/P hemorrhoidectomy Status post placement of implantable loop recorder (2015) Social History Smoking Status: Never smoker second hand exposure: No alcohol intake: never substance use type: does not use caffeine: Yes what type of physical activity do you participate in: walking frequency: 1-2 times per week seatbelt use: always ROS ROS ED Constitutional Constitutional ED: Denies chills or fever(s) Eyes Eyes: Denies change in vision ENT ENT ED: Reports sore throat Cardiovascular Cardiovascular: Denies chest pain Respiratory/Chest Respiratory/Chest: Denies cough or dyspnea Gastrointestinal Gastrointestinal: Denies abdominal pain, diarrhea, nausea or vomiting Genitourinary Genitourinary ED: Denies dysuria Musculoskeletal Musculoskeletal: Denies back pain Integumentary Denies rash Neurologic Neurologic: Reports headache(s) and weakness Psychiatric Psychiatric: Denies anxiety or depression Endocrine Endocrinology: Denies polydipsia or polyuria Allergic/Immunologic Allergic/Immunologic ED: Denies urticaria EXAM Physical Exam Const Vital Signs: 09/08/20 11:43 09/08/20 11:48 Temperature 97.8 F 97.8 F Temperature Source Oral Oral Pulse Rate 71 70 Respiratory Rate 16 18 Respiratory Effort Normal Non-Labored Respiratory Pattern Normal Blood Pressure 126/55 H 124/58 H Blood Pressure Mean 78 80 Pulse Ox 96 94 Oxygen Delivery Method Room Air Room Air Positive well developed and cachectic General Appearance ED: well developed and cachectic Nutritional Appearance: cachectic HEENT Reports moist mucous membranes Negative for trauma Eyes PERRL and EOMs intact bilaterally Neck supple Chest Wall inspection of chest normal and palpation of chest normal Resp normal respiratory effort and clear to auscultation bilaterally Cardio regular rate and regular rhythm Heart Sounds: murmur GI normal to inspection, nondistended, normoactive bowel sounds Extremity General Extremety ED: Yes edema General Extremity: edema Neuro oriented x3 Sensorium / Orientation: alert Skin Skin Narrative: Ecchymosis noted to the left lower quadrant of the abdomen. MDM MDM MDM Narrative Medical decision making narrative: Patient's labs from the long-term were reviewed. Her sodium was reportedly 121. She was initiated on IV fluids and repeat labs were obtained. Lab Data Attestation: I reviewed the patient's lab results. Labs: Laboratory Results - last 24 hr 09/08/20 09/08/20 12:00 12:00 WBC 9.1 RBC 4.75 Hgb 13.5 Hct 41.6 MCV 87.6 MCH 28.4 MCHC 32.5 RDW Std Deviation 50.4 H RDW Coeff of Sunitha 15.7 H Plt Count 303 MPV 9.9 Immature Gran % (Auto) 0.600 Neut % (Auto) 70.2 H Lymph % (Auto) 14.2 L Gilliam % (Auto) 12.4 H Eos % (Auto) 2.3 Baso % (Auto) 0.3 Absolute Neuts (auto) 6.4 Absolute Lymphs (auto) 1.29 Nucleated RBC % 0 Sodium 123 L Potassium 5.1 Chloride 86 L Carbon Dioxide 27.0 Anion Gap 10 BUN 97 H Creatinine 3.30 H Estim Creat Clear Calc 12.78 Est GFR (MDRD) Af Amer 17 L Est GFR (MDRD) Non-Af 14 L BUN/Creatinine Ratio 29.4 H Glucose 125 H Calcium 9.0 EKG Initial EKG: Attestation: I personally reviewed and interpreted this EKG as follows: Interpretation: Sinus Rhythm (Sinus at 67 with no acute ischemia.) Treatment and Re-Evaluation Comments:: Patient's sodium level does return at 123. I do have a normal value from early July. Patient's creatinine today is also 3.3, up from the baseline 1-1.5 range. I will discuss her case with hospitalist for admission and IV hydration. Discharge Plan Triage Chief Complaint: General Illness ED Provider: Светлана Figueroa Dx/Rx/DC Orders Clinical Impression: Acute hyponatremia, Acute renal failure Prescriptions: No Action citalopram 20 mg tablet 40 mg PO QDAY RF: 0 gabapentin 300 mg capsule 600 mg PO BID RF: 0 lisinopril 40 mg tablet 40 mg PO QDAY RF: 0 metformin 500 mg tablet extended release 24 hr 500 mg PO BID RF: 0 insulin asp prt-insulin aspart [Novolog Mix 70-30FlexPen U-100] 100 unit/mL (70-30) insulin pen 24 unit SC DAILY RF: 0 omeprazole 40 mg capsule,delayed release(DR/EC) 40 mg PO DAILY RF: 0 Trulicity 1.5 mg/0.5 mL pen injector 1.5 mg SC QWEEK RF: 0 cetirizine 10 mg capsule 10 mg PO DAILY RF: 0 melatonin 3 mg tablet 3 mg PO HS PRN (Reason: Sleep) RF: 0 levothyroxine 125 mcg tablet 125 mcg PO DAILY RF: 0 ezetimibe 10 mg tablet 10 mg PO DAILY RF: 0 hydroxyzine HCl 25 mg tablet 25 mg PO QHS RF: 0 furosemide [Lasix] 40 mg tablet 40 mg PO BID Qty: 90 RF: 3 metoprolol succinate 100 mg tablet extended release 24 hr 100 mg PO QDAY Qty: 90 RF: 3 cholecalciferol (vitamin D3) 2,000 UNIT capsule 2,000 unit PO DAILY RF: 0 iy-mqv-ianey-calcium carb-K1 1 EACH tablet 1 ea PO DAILY RF: 0 tramadol 50 MG tablet 50 mg PO Q6H PRN PRN (Reason: Pain) Qty: 10 RF: 0 lactulose 10 gram/15 mL Solution 20 g PO BID RF: 0 aspirin [Adult Aspirin Regimen] 81 mg tablet,delayed release (DR/EC) 81 mg PO DAILY RF: 0 Primary Care Provider: Hailee Lees Referrals: Hailee Lees DO [Primary Care Provider] - Disposition Disposition: Acute Care Hospital [facility]
[2020-09-08] MEDS: 0.9% Normal Saline 1,000 ML 150 ML IV (12:16)
[2020-09-08 12:31] LABS: Absolute Lymphocyte Count 1.29 X10^3/uL (0.83-4.51); Absolute Neutrophil Count 6.4 X10^3/uL (2.0-7.7); Basophil# 0.03 X10^3/uL; Basophil% 0.3 % (0-1); Eosinophil# 0.21 X10^3/uL; Eosinophils% 2.3 % (0-5); Hematocrit 41.6 % (37-47); Hemoglobin 13.5 g/dL (12.0-15.0); Lymphocyte # 1.29 X10^3/ul (0.83-4.51); Lymphocyte % 14.2 % (19-41); Mean Corp Hgb Conc 32.5 g/dL (32-36); Mean Corpuscular Hgb 28.4 pg (27.0-32.0); Mean Corpuscular Volume 87.6 fL (81-99); Mean Platelet Vol. 9.9 fl (6.2-12.0); Monocyte# 1.12 X10^3/uL; Monocyte% 12.4 % (0-10); NRBC Flagged by Analyzer 0 % (0-5); Neutrophil # 6.36 X10^3/uL (2.7-7.7); Neutrophil % 70.2 % (47-70); Platelet Count 303 K/mm3 (150-450); RBC Distribution Width CV 15.7 % (11.6-14.6); RBC Distribution Width SD 50.4 fl (35.1-43.9); Red Blood Count 4.75 M/mm3 (4.2-5.4); White Blood Count 9.1 K/mm3 (4.4-11.0)
[2020-09-08 12:40] LABS: Anion Gap 10 (5-15); BUN 97 mg/dL (7-18); BUN/Creat Ratio 29.4 RATIO (10-20); Chloride 86 mmol/L (98-107); EST Glomerular Filtration Rate 14 mL/min (>60); Est Glom Filt Rate - Afr Amer 17 mL/min (>60); Estimated Creatinine Clearance 12.78 ml/min; Glucose 125 mg/dL (74-106); Potassium 5.1 mmol/L (3.5-5.1); Sodium Level 123 mmol/L (136-145)
--- NOTE | 2020-09-08 15:12 | HP.PCM.HOS_ITS ---
[facility] - General General Date of Admission: 09/08/20 HPI Narrative EKATERINA ROBERTS, is a 80 F with a past medical history as outlined including CKD stage III and nonalcoholic liver disease who presents via the ED on 09/08/2020 with a complaint of lethargy and weakness as well as low sodium. She presented from a care home where her son said she had been noted to be more lethargic and weak over the last few days. Patient is on diuretics and son states that her diuretic dose has been adjusted recently because of concerns of fluid overload. However she has been off the diuretic for about a week now. Patient admitted to diarrhea and nausea but denied any vomiting. She admitted to decr eased intake denied any fever or chills, chest pain, palpitations, dizziness or any other symptoms. Review of studies otherwise negative. In the ED, vitals showed blood pressure 118/55 with pulse rate of 71 respiratory rate of 19 with temperature of 97.8 and oxygen saturation of 94% on room air. CBC showed hemoglobin of 13.5 with WBC of 9.1 and platelets of 303. CBC showed sodium of 123 with creatinine of 3.3 with a baseline of around 1.2. Ammonia level was not checked. She has been admitted to be managed for LISSET on CKD stage III and hyponatremia likely due to dehydration and decreased intake. [facility] Medical History (Updated 09/08/20 @ 16:45 by Darline Fish) Anxiety Ascites Asthma Atherosclerosis of coronary artery of [place] heart without angina pectoris Bilateral carotid artery stenosis Carotid artery stenosis Cirrhosis Depression Diabetes DVT (deep venous thrombosis) Essential (primary) hypertension GERD (gastroesophageal reflux disease) Hemorrhoid History of abdominal paracentesis (08/29/20) Hyperlipidemia Hyperlipidemia Hypothyroidism Kidney disease Left thyroid nodule Neuropathy Nonalcoholic fatty liver disease Peripheral arterial occlusive disease TIA (transient ischemic attack) (2016) Type 2 diabetes mellitus Home Medications gabapentin 300 mg capsule 300 mg PO BID cap 10/01/17 [History Last Taken 09/08/20] sh-tzd-[id number]-calcium carb-K1 1 ea PO DAILY 12/03/17 [History Last Taken 09/08/20] dulaglutide 1.5 mg/0.5 mL subcutaneous pen injector 1.5 mg SC MO 02/04/18 [History Last Taken 09/04/20] omeprazole 40 mg capsule,delayed release 40 mg PO BID cap 09/24/18 [History Last Taken 09/08/20] aspirin 81 mg tablet,delayed release 81 mg PO DAILY 10/03/18 [History Last Taken 09/08/20] ezetimibe 10 mg tablet 10 mg PO DAILY tab 12/30/19 [History Last Taken ] levothyroxine 125 mcg tablet 125 mcg PO DAILY tab 12/30/19 [History Last Taken 09/08/20] acetaminophen [Tylenol] 650 mg PO Q4H PRN 09/08/20 [History Last Taken 09/05/20] citalopram 40 mg PO DAILY 09/08/20 [History Last Taken 09/08/20] insulin lispro [Humalog KwikPen Insulin] See Protocol SUBCUT TIDCM 09/08/20 [History Last Taken 09/05/20] insulin lispro protamin-lispro [Humalog Mix 75-25 KwikPen] 24 unit SUBCUT BREAKFAST 09/08/20 [History Last Taken 09/08/20] insulin lispro protamin-lispro [Humalog Mix 75-25(U-100)Insuln] 5 unit SUBCUT DINNER 09/08/20 [History Last Taken 09/07/20] lactulose 20 g PO BID 09/08/20 [History Last Taken 09/08/20] magnesium oxide 400 mg PO DAILY 09/08/20 [History Last Taken 09/08/20] melatonin 5 mg PO QHS 09/08/20 [History Last Taken 09/07/20] ondansetron HCl 4 mg PO Q8H PRN 09/08/20 [History Last Taken 09/03/20] polyethylene glycol 3350 17 g PO DAILY 09/08/20 [History Last Taken 09/08/20] tramadol 50 mg PO Q8H PRN 09/08/20 [History Last Taken 09/04/20] Allergy/AdvReac Type Severity Reaction Status Date / Time codeine Allergy Unknown Unknown Verified 09/08/20 11:46 Latex, Natural Rubber Allergy skin Verified 09/08/20 16:25 irritation zolpidem [From Ambien] Allergy syncope Verified 09/08/20 11:46 adhesive tape AdvReac skin Verified 09/08/20 16:25 irritation Sulfa (Sulfonamide AdvReac unknown Verified 09/08/20 11:46 Antibiotics) Family History Father CAD (coronary artery disease) Brother CAD (coronary artery disease) Surgical History H/O coronary artery bypass surgery (01/13/05) H/O partial thyroidectomy H/O right inguinal hernia repair History of appendectomy History of hysterectomy History of left heart catheterization (01/24/20) History of open reduction and internal fixation (ORIF) procedure History of tonsillectomy Hx of cholecystectomy S/P hemorrhoidectomy Status post placement of implantable loop recorder (2016) Social History Smoking Status: Never smoker second hand exposure: No alcohol intake: never substance use type: does not use caffeine: Yes what type of physical activity do you participate in: walking frequency: 1-2 times per week seatbelt use: always ROS Constitutional Constitutional: Reports anorexia, fatigue, malaise and weakness; Denies change in weight, chills, fever(s) or night sweats Eyes Eyes: Denies blurry vision or double vision ENT HEENT: Denies dysphagia, headache(s) or hearing loss Cardiovascular Cardiovascular: Denies chest pain, dyspnea on exertion, edema, lightheadedness, orthopnea, palpitations or paroxysmal nocturnal dyspnea Respiratory/Chest Respiratory/Chest: Denies cough, dyspnea, productive cough, shortness of breath at rest or shortness of breath with exertion Gastrointestinal Gastrointestinal: Reports diarrhea and hematemesis; Denies abdominal pain, constipation, dyspepsia, loose stools, nausea or vomiting Genitourinary Genitourinary: Denies burning urination or dysuria Neurologic Neurologic: Denies confusion, dizziness, focal weakness, headache(s), numbness or seizures Psychiatric Psychiatric: Denies anxiety Endocrine Endocrinology: Denies change in body appearance Hematologic/Lymphatic Hematologic/Lymphatic: Denies anemia Vital Signs Vital Signs Vital Signs: 09/08/20 11:43 09/08/20 11:48 09/08/20 12:30 Temperature 97.8 F 97.8 F 97.6 F L Temperature Source Oral Oral Temporal Pulse Rate 71 70 68 Respiratory Rate 16 18 17 Respiratory Effort Normal Non-Labored Respiratory Pattern Normal Blood Pressure 126/55 H 124/58 H 107/45 L Blood Pressure Mean 78 80 65 Pulse Ox 96 94 95 Oxygen Delivery Method Room Air Room Air Room Air 09/08/20 13:00 09/08/20 13:46 09/08/20 14:27 Temperature 97.8 F 97.8 F Temperature Source Temporal Temporal Pulse Rate 66 71 71 Respiratory Rate 16 19 H 19 H Respiratory Effort Respiratory Pattern Blood Pressure 113/46 L 118/55 L 118/55 L Blood Pressure Mean 68 76 76 Pulse Ox 96 94 94 Oxygen Delivery Method Room Air Room Air Room Air Physical Exam Const alert and oriented x3 General Appearance: cooperative Orientation / Consciousness: lethargic HEENT normocephalic and head/scalp atraumatic HEENT Narrative: mucosa dry Eyes PERRL, EOMs intact bilaterally and conjunctivae normal Neck no lymphadenopathy Resp normal respiratory effort, no use of accessory muscles and clear to auscultation bilaterally Cardio regular rate, regular rhythm, S1 normal heart sound, S2 normal heart sound and no murmurs GI normal to inspection, nondistended, normoactive bowel sounds, soft to palpation, non-tender and non-distended Extremity normal to inspection Extremity Narrative: 1+ bipedal edema Peripheral Pulses: Yes pulses 2+ throughout Skin no rashes or lesions noted Neuro oriented x3 Sensorium / Orientation: awake and alert Psych affect normal Lab / Micro Data Result Diagrams: 09/08/20 12:00 09/08/20 16:50 Labs: Laboratory Results - last 24 hr 09/08/20 09/08/20 12:00 12:00 WBC 9.1 RBC 4.75 Hgb 13.5 Hct 41.6 MCV 87.6 MCH 28.4 MCHC 32.5 RDW Std Deviation 50.4 H RDW Coeff of Sunitha 15.7 H Plt Count 303 MPV 9.9 Immature Gran % (Auto) 0.600 Neut % (Auto) 70.2 H Lymph % (Auto) 14.2 L Garza % (Auto) 12.4 H Eos % (Auto) 2.3 Baso % (Auto) 0.3 Absolute Neuts (auto) 6.4 Absolute Lymphs (auto) 1.29 Nucleated RBC % 0 Sodium 123 L Potassium 5.1 Chloride 86 L Carbon Dioxide 27.0 Anion Gap 10 BUN 97 H Creatinine 3.30 H Estim Creat Clear Calc 12.78 Est GFR (MDRD) Af Amer 17 L Est GFR (MDRD) Non-Af 14 L BUN/Creatinine Ratio 29.4 H Glucose 125 H Calcium 9.0 Assessment & Plan Assessment/Plan (1) Acute hyponatremia: (2) Nonalcoholic fatty liver disease: (3) Acute on chronic renal failure: PLAN: #Acute hyponatremia * likely due to decreased intake and diuretics and diarrhea * sodium is 123. * check serum osmolality and urine osmolality, as well as urine sodium * hydrate gently with IVF, targeting sodium correction of 6-8 mmol/l over next 24 hours * consult nephrology if patient;s sodium and creatinine doesnt improve overnight with hydration * #AK on CKD stage 3 * Cr is 3.3, with baseline of 1.2 * likely pre-renal, due to dehydration * hydrate with NS as above * check FeUrea, and if kidney function does not improve, do an ultrasound * #Nonalcoholic steatohepatitis * States she has needed paracentesis in the past and account of ascites. * Currently stable. Will check ammonia level. On spironolactone. * On lactulose which may be the cause of her diarrhea. #CAD s/p CABG: On aspirin and ezetimibe * #Type 2 diabetes mellitus: * On dulaglutide and Humalog 75/25 24 units with breakfast and 5 units with dinner. * Insulin sliding scale. * Accuchecks ACHS * #Hypothyroidism: On Synthroid DVT prophylaxis: lovenox Code status: * Patient and her son Bashir Roberts counseled extensively about differences between full code, DNR CCA and DNR CCA. Son states patient has a DO NOT RESUSCITATE order and after being counseled about differences between DNR CCA and DNR CCA, patient and son elected for her to be DNR CCA. * Her son Bashir Roberts is next of kin and her power of finance attorney who will make decisions for her if she is incapacitated. * Total [id number] time-18 minutes. Visit Charges Inpatient E&M: 10992 Init Hosp L3 Procedures Hospitalists Procedures: 42951 Advncd Care Plan 30 Min
[2020-09-08 16:25] LABS: Bedside Glucose 79 mg/dL (70-110)
[2020-09-08] MEDS: 0.9% Normal Saline 1,000 ML 125 ML IV ×2 (17:09→23:52)
[2020-09-08 17:32] LABS: Anion Gap 8 (5-15); BUN 94 mg/dL (7-18); BUN/Creat Ratio 30.8 RATIO (10-20); Calcium,Total 8.8 mg/dL (8.5-10.1); Chloride 88 mmol/L (98-107); Creatinine, Serum 3.05 mg/dL (0.55-1.02); EST Glomerular Filtration Rate 16 mL/min (>60); Est Glom Filt Rate - Afr Amer 19 mL/min (>60); Estimated Creatinine Clearance 13.83 ml/min; Glucose 74 mg/dL (74-106); Potassium 4.8 mmol/L (3.5-5.1); Sodium Level 123 mmol/L (136-145)
[2020-09-08 18:00] LABS: Osmolality, Serum 290 mOsm/KG (280-301)
[2020-09-08 19:13] LABS: Urine Sodium < 5 mmol/L (Not Establ.)
[2020-09-08 19:21] LABS: Osmolality, Urine 440 mOsm/KG
[2020-09-08 19:57] LABS: Color, Urine Yellow (Yellow); Glucose, Dipstick Normal (Normal); Ketone-Dipstick Negative (Negative); Leukocyte Esterase-Dipstick Negative /ul (Negative); Mucous, Urine 0 SEEN /hpf (<or=2+); Nitrite-Dipstick Positive (Negative); Occult Blood-Urine Negative /ul (Negative); Protein-Dipstick 15 mg/dl (Negative); Red Blood Cells-Urine 0 SEEN /hpf (0-5); Specific Gravity, Urine 1.025 (1.002-1.030); Urine Clarity Clear (Clear); Urine Urobilinogen Normal (Normal)
[2020-09-08 20:03] LABS: Urine Bilirubin Dipstick 1 mg/dL (Negative)
[2020-09-08 20:04] LABS: Amorphous Sediment 1+ URATE; Bacteria 3+ /hpf (None Seen); Squamous Epithelial Cells - UA 0-5 SEEN /hpf (5-10); White Blood Cells 0-5 SEEN /hpf (0-5)
[2020-09-08 20:52] LABS: Anion Gap 9 (5-15); BUN 92 mg/dL (7-18); BUN/Creat Ratio 31.7 RATIO (10-20); Calcium,Total 8.1 mg/dL (8.5-10.1); Chloride 90 mmol/L (98-107); EST Glomerular Filtration Rate 17 mL/min (>60); Est Glom Filt Rate - Afr Amer 20 mL/min (>60); Estimated Creatinine Clearance 14.54 ml/min; Glucose 162 mg/dL (74-106); Potassium 5.2 mmol/L (3.5-5.1); Sodium Level 125 mmol/L (136-145)
[2020-09-08] MEDS: Glucerna Shake 120 ML LIQUID PO (22:26)
[2020-09-08] MEDS: hydrOXYzine PAM 25 MG Capsule PO (22:27)
[2020-09-08] MEDS: Lactulose 20 GM/30 ML UDC PO (22:27)
[2020-09-08] MEDS: Insulin Lispro 100 UNIT/ML INSULN.PEN SC (22:28)
[2020-09-09] VITALS (10 sets, daily range): BP systolic 111–126; BP diastolic 45–61; PULSE 69–80; RESP 16–18; TEMP 36.7–36.9; O2SAT 94–98
[2020-09-09 00:56] LABS: Anion Gap 6 (5-15); BUN 93 mg/dL (7-18); BUN/Creat Ratio 33.7 RATIO (10-20); Calcium,Total 7.8 mg/dL (8.5-10.1); Chloride 93 mmol/L (98-107); Creatinine, Serum 2.76 mg/dL (0.55-1.02); EST Glomerular Filtration Rate 18 mL/min (>60); Est Glom Filt Rate - Afr Amer 21 mL/min (>60); Estimated Creatinine Clearance 15.28 ml/min; Glucose 130 mg/dL (74-106); Sodium Level 126 mmol/L (136-145)
[2020-09-09 01:41] LABS: Bedside Glucose 159 mg/dL (70-110)
[2020-09-09] MEDS: Levothyroxine 125 MCG Tablet PO (05:09)
[2020-09-09 06:55] LABS: Absolute Neutrophil Count 4.8 X10^3/uL (2.0-7.7); Basophil# 0.04 X10^3/uL; Basophil% 0.5 % (0-1); Eosinophil# 0.33 X10^3/uL; Eosinophils% 4.3 % (0-5); Hematocrit 35.3 % (37-47); Hemoglobin 11.7 g/dL (12.0-15.0); Mean Corp Hgb Conc 33.1 g/dL (32-36); Mean Corpuscular Hgb 28.7 pg (27.0-32.0); Mean Corpuscular Volume 86.5 fL (81-99); Mean Platelet Vol. 9.7 fl (6.2-12.0); Monocyte# 1.13 X10^3/uL; Monocyte% 14.8 % (0-10); NRBC Flagged by Analyzer 0 % (0-5); Platelet Count 238 K/mm3 (150-450); RBC Distribution Width CV 15.7 % (11.6-14.6); Red Blood Count 4.08 M/mm3 (4.2-5.4); White Blood Count 7.6 K/mm3 (4.4-11.0)
--- NOTE | 2020-09-09 07:10 | PN.HOSP_ITS ---
Subjective Subjective Patient is an 80-year-old resident of an extended care facility brought in with generalized malaise and headache as well as sore throat. Patient was found to be hyponatremic on admission admitted to regular nursing floor on a monitored bed for further management Objective Data Objective Data Vital Signs: Vital Signs Temp Pulse Resp BP Pulse Ox 98.2 F 69 16 116/54 L 95 09/09/20 03:34 09/09/20 04:00 09/09/20 03:34 09/09/20 03:34 09/09/20 03:34 Oxygen Delivery Method Room Air Weight: 75.841 kg Body Mass Index (BMI) 26.2 Intake & Output: Intake and Output for Last 24 Hours 09/07/20 09/08/20 09/09/20 23:59 23:59 23:59 Intake Total 2189.58 / 2189.58 Output Total 150 / 150 300 / 300 Balance 2039.58 / 2039.58 -300 / -300 Lab / Micro Data Result Diagrams: 09/09/20 06:33 09/09/20 00:28 Labs: Laboratory Results - last 24 hr 09/08/20 09/08/20 09/08/20 12:00 12:00 16:18 WBC 9.1 RBC 4.75 Hgb 13.5 Hct 41.6 MCV 87.6 MCH 28.4 MCHC 32.5 RDW Std Deviation 50.4 H RDW Coeff of Sunitha 15.7 H Plt Count 303 MPV 9.9 Immature Gran % (Auto) 0.600 Neut % (Auto) 70.2 H Lymph % (Auto) 14.2 L [place] % (Auto) 12.4 H Eos % (Auto) 2.3 Baso % (Auto) 0.3 Absolute Neuts (auto) 6.4 Absolute Lymphs (auto) 1.29 Nucleated RBC % 0 Sodium 123 L Potassium 5.1 Chloride 86 L Carbon Dioxide 27.0 Anion Gap 10 BUN 97 H Creatinine 3.30 H Estim Creat Clear Calc 12.78 Est GFR (MDRD) Af Amer 17 L Est GFR (MDRD) Non-Af 14 L BUN/Creatinine Ratio 29.4 H Glucose 125 H Serum Osmolality Calcium 9.0 Urine Color Urine Clarity Urine pH Ur Specific [place] Urine Protein Urine Glucose (UA) Urine Ketones Urine Occult Blood Urine Nitrite Urine Bilirubin Urine Urobilinogen Ur Leukocyte Esterase Urine RBC Urine WBC Ur Squamous Epith Cells Amorphous Sediment Urine Bacteria Urine Mucus Urine Osmolality Ur Random Sodium POC Glucose 79 09/08/20 09/08/20 09/08/20 16:50 16:50 18:40 WBC RBC Hgb Hct MCV MCH MCHC RDW Std Deviation RDW Coeff of Sunitha Plt Count MPV Immature Gran % (Auto) Neut % (Auto) Lymph % (Auto) [place] % (Auto) Eos % (Auto) Baso % (Auto) Absolute Neuts (auto) Absolute Lymphs (auto) Nucleated RBC % Sodium 123 L Potassium 4.8 Chloride 88 L Carbon Dioxide 27.0 Anion Gap 8 BUN 94 H Creatinine 3.05 H Estim Creat Clear Calc 13.83 Est GFR (MDRD) Af Amer 19 L Est GFR (MDRD) Non-Af 16 L BUN/Creatinine Ratio 30.8 H Glucose 74 Serum Osmolality 290 Calcium 8.8 Urine Color Yellow Urine Clarity Clear Urine pH 5.0 Ur Specific [place] 1.025 Urine Protein 15 H Urine Glucose (UA) Normal Urine Ketones Negative Urine Occult Blood Negative Urine Nitrite Positive H Urine Bilirubin 1 H Urine Urobilinogen Normal Ur Leukocyte Esterase Negative Urine RBC 0 SEEN Urine WBC 0-5 SEEN Ur Squamous Epith Cells 0-5 SEEN Amorphous Sediment 1+ URATE Urine Bacteria 3+ Urine Mucus 0 SEEN Urine Osmolality Ur Random Sodium POC Glucose 09/08/20 09/08/20 09/08/20 18:40 20:09 22:15 WBC RBC Hgb Hct MCV MCH MCHC RDW Std Deviation RDW Coeff of Sunitha Plt Count MPV Immature Gran % (Auto) Neut % (Auto) Lymph % (Auto) [place] % (Auto) Eos % (Auto) Baso % (Auto) Absolute Neuts (auto) Absolute Lymphs (auto) Nucleated RBC % Sodium 125 L Potassium 5.2 H Chloride 90 L Carbon Dioxide 26.0 Anion Gap 9 BUN 92 H Creatinine 2.90 H Estim Creat Clear Calc 14.54 Est GFR (MDRD) Af Amer 20 L Est GFR (MDRD) Non-Af 17 L BUN/Creatinine Ratio 31.7 H Glucose 162 H Serum Osmolality Calcium 8.1 L Urine Color Urine Clarity Urine pH Ur Specific [place] Urine Protein Urine Glucose (UA) Urine Ketones Urine Occult Blood Urine Nitrite Urine Bilirubin Urine Urobilinogen Ur Leukocyte Esterase Urine RBC Urine WBC Ur Squamous Epith Cells Amorphous Sediment Urine Bacteria Urine Mucus Urine Osmolality 440 Ur Random Sodium < 5 POC Glucose 159 H 09/09/20 09/09/20 00:28 06:33 WBC 7.6 RBC 4.08 L Hgb 11.7 L Hct 35.3 L MCV 86.5 MCH 28.7 MCHC 33.1 RDW Std Deviation 50.0 H RDW Coeff of Sunitha 15.7 H Plt Count 238 MPV 9.7 Immature Gran % (Auto) 0.400 Neut % (Auto) 63.0 Lymph % (Auto) 17.0 L [place] % (Auto) 14.8 H Eos % (Auto) 4.3 Baso % (Auto) 0.5 Absolute Neuts (auto) 4.8 Absolute Lymphs (auto) 1.30 Nucleated RBC % 0 Sodium 126 L Potassium 5.0 Chloride 93 L Carbon Dioxide 27.0 Anion Gap 6 BUN 93 H Creatinine 2.76 H Estim Creat Clear Calc 15.28 Est GFR (MDRD) Af Amer 21 L Est GFR (MDRD) Non-Af 18 L BUN/Creatinine Ratio 33.7 H Glucose 130 H Serum Osmolality Calcium 7.8 L Urine Color Urine Clarity Urine pH Ur Specific [place] Urine Protein Urine Glucose (UA) Urine Ketones Urine Occult Blood Urine Nitrite Urine Bilirubin Urine Urobilinogen Ur Leukocyte Esterase Urine RBC Urine WBC Ur Squamous Epith Cells Amorphous Sediment Urine Bacteria Urine Mucus Urine Osmolality Ur Random Sodium POC Glucose Physical Exam Narrative GENERAL: cooperative HEENT: Atraumatic; EYES; Anicteric, Normal Conjunctiva NECK; supple, normal thyroid, RESPIRATORY: Diminished to auscultation CARDIOVASCULAR: Regular S1 S2, GI: soft, normoactive bowel sounds, abdomen distended : No Renal angle tenderness; EXTREMITIES: edema, no clubbing, MUSCULOSKELETAL: no muscle waisting NEURO: Awake; no lateralizing signs. SKIN: No Rash PSYCH; Flat affect Assessment & Plan Assessment/Plan (1) Acute hyponatremia: (2) Nonalcoholic fatty liver disease: (3) Acute on chronic renal failure: PLAN: Patient is an 80-year-old resident of an extended care facility brought in with generalized malaise and headache as well as sore throat. Patient was found to be hyponatremic on admission admitted to regular nursing floor on a monitored bed for further management 1. Acute hyponatremia ?Do suspect fluid overload status from patient's ascites from her nonalcoholic fatty liver disease. Admitted to monitored bed. As part of her evaluation urine osmolality serum osmolality as well as urine sodium levels ordered. Patient sodium management remains challenging. Patient may be in a state of fluid overload given her ascites however her intravascular volume may be low. Consult placed to nephrology 2. Acute kidney injury superimposed on chronic kidney disease stage III ?Patient currently being rehydrated consult placed to nephrology 3. Nonalcoholic fatty liver disease ?With complications including ascites patient undergo serial paracentesis as outpatient 4. Coronary artery disease ?Status post CABG 5. Diabetes mellitus type II -patient's oral hypoglycemics held. Placed on long acting insulin as well as dulaglutide, Accu-Cheks a.c. and at bedtime and covered with sliding scale insulin 6. Hypothyroidism - Patient is on levothyroxine home dose continued 7. Diabetic neuropathy ?Patient is on gabapentin 8. Depression ?Patient is on SSRI 9. DVT prophylaxis ?SC Lovenox Visit Charges Inpatient E&M: 78825 [facility] Hosp L3
[2020-09-09 08:31] LABS: Bedside Glucose 123 mg/dL (70-110)
[2020-09-09] MEDS: Aspirin E.C. 81 MG Tablet PO (10:06)
[2020-09-09] MEDS: Insulin Human 75/25 Kwickpen 24 UNIT SC (10:07)
[2020-09-09] MEDS: Multivitamins,Ther W-Minerals Tablet 1 TABLET PO (10:08)
[2020-09-09] MEDS: Menthol/Lanolin/Calamine/Znox 113 GM Tube 1 APPLIC TOPICAL ×4 (10:08→22:07)
[2020-09-09] MEDS: Loratadine 10 MG Tablet PO (10:10)
[2020-09-09] MEDS: Citalopram 40 MG TABLET PO (10:10)
[2020-09-09] MEDS: Lactulose 20 GM/30 ML UDC PO ×2 (10:10→22:10)
[2020-09-09] MEDS: Pantoprazole Sodium 40 MG Tablet PO (10:11)
[2020-09-09] MEDS: Metoprolol(XL)Succ 100 MG Tablet PO (10:11)
[2020-09-09] MEDS: Enoxaparin 30 MG/0.3 ML Syringe SC (10:11)
[2020-09-09] MEDS: Lisinopril 40 MG Tablet PO (10:13)
[2020-09-09] MEDS: 0.9% Normal Saline 1,000 ML 75 ML IV ×2 (11:40→22:13)
[2020-09-09] MEDS: Insulin Lispro 100 UNIT/ML INSULN.PEN SC ×2 (11:40→22:03)
[2020-09-09 11:51] LABS: Bedside Glucose 225 mg/dL (70-110)
--- NOTE | 2020-09-09 14:03 | CASEMGMT ---
Addendum entered by Michelle Neely 09/09/20 19:06: HIRO provided patient with list of SNF in his room for family to review. HIRO will email U[facility] that family wants TCU at discharge. Michelle WHITLOCK Original Note: HIRO Note HIRO Referral Source: Staci (TREY) HIRO Referral Reason: From [facility] ([facility]) SW received CM referral from [facility]. HIRO met with patient, her son, Bashir and David. Patient's and son confirmed that patient is from [facility] and the plan is for patient to return back to [facility]. Plan: Return to [facility] at discharge. Michelle WHITLOCK
[2020-09-09 16:55] LABS: Bedside Glucose 178 mg/dL (70-110)
[2020-09-09] MEDS: Insulin Human 75/25 Kwickpen 5 UNIT SC (17:02)
[2020-09-09] MEDS: Glucerna Shake 120 ML LIQUID PO ×2 (17:04→22:07)
--- NOTE | 2020-09-09 20:06 | PCM.CONS.R ---
Assessment & Plan Assessment/Plan (1) LISSET (acute kidney injury): PLAN: LISSET is likely due to volume depletion. Serum creatinine was 3.3 mg/dL on presentation (09/08/2020). Urine sodium was less than 20 mmol/L. This is consistent with LISSET due to volume depletion related to diarrhea and poor oral intake. Renal function is already improving with IV fluid. I agree with continuing IV fluid until diarrhea resolves and patient regained some better appetite. Recheck renal function again tomorrow. Current medications are reviewed and are all appropriately dosed for her estimated creatinine clearance. (2) Chronic kidney disease, stage 3b: PLAN: The patient has stage IIIb CKD with baseline serum creatinine of around 1.3 to 1.6 mg/dL. CKD is possibly due to diabetic kidney disease. Once the patient is back at her baseline renal function or in steady state, I will check urine protein to creatinine ratio. (3) Hyponatremia: PLAN: Hyponatremia appears to be chronic. Serum sodium was 134 in April of this year. However, there is an acute exacerbation of hyponatremia. She presented with serum sodium concentration of 123 mmol/L. Acute hyponatremia is likely due to volume depletion as well. Urine sodium was less than 20. Continue volume repletion with IV saline and encourage the patient to increase oral intake of solute. The patient is not symptomatic from the current level of hyponatremia. Recheck serum sodium tomorrow. No need to stop citalopram at this time. (4) Hyperkalemia: PLAN: The patient presented with potassium level of 5.2 mmol/L. Potassium level is better today at 5.0 mmol/L. Hyperkalemia is mild and is likely related to LISSET. No need for extensive work-up at this point. Recheck potassium level tomorrow (5) Diarrhea: PLAN: Subjectively improved. Management and work-up for etiology of diarrhea as per hospital medicine service. HPI Consult Data Date of Consult: 09/09/20 HPI Narrative Reason for Consultation: Acute kidney injury on chronic kidney disease and hyponatremia HPI Narrative: The patient is a 80-year-old woman with past history of type 2 diabetes mellitus, Gray with cirrhosis, CAD, hypertension, hypothyroidism, peripheral arterial disease, and chronic kidney disease stage IIIb. The patient presents with weakness and listlessness for about 3 to 4 days prior to admission. She also complained of diarrhea for about the same period of time. The patient does admit to intermittent nausea but no vomiting. Nephrology is asked to see the patient because of acute kidney injury. The patient has baseline serum creatinine of around 1.3 prior to this year. Her serum creatinine did increase to 1.64 mg/dL on 07/22/2020. Creatinine increased further on admission (09/08/2020) to 3.33 mg/dL. The patient also presented with hyponatremia. Serum sodium was 123 mmol/L on presentation. The patient does have mild chronic hyponatremia with sodium level of between 134 to 136 mmol/L since December 2019. The patient still has loose bowel movement, but the severity of diarrhea has improved since admission. Her appetite is still poor. She denies chest pain, shortness of breath, nausea, or vomiting. The patient reports headaches which has been intermittent. She has lower extremity edema which has not increased in severity. The patient denies chronic use of NSAIDs prior to admission. [facility] Medical History (Updated 09/09/20 @ 20:[address] Chantelle Damon MD) Anxiety Ascites Asthma Atherosclerosis of coronary artery of [place] heart without angina pectoris Bilateral carotid artery stenosis Carotid artery stenosis Cirrhosis Depression Diabetes DVT (deep venous thrombosis) Essential (primary) hypertension GERD (gastroesophageal reflux disease) Hemorrhoid History of abdominal paracentesis (08/29/20) Hyperlipidemia Hyperlipidemia Hypothyroidism Kidney disease Left thyroid nodule Neuropathy Nonalcoholic fatty liver disease Peripheral arterial occlusive disease TIA (transient ischemic attack) (2015) Type 2 diabetes mellitus Home Medications gabapentin 300 mg capsule 300 mg PO BID cap 10/01/17 [History Last Taken 09/08/20] aq-ced-uwlmd-calcium carb-K1 1 ea PO DAILY 12/03/17 [History Last Taken 09/08/20] dulaglutide 1.5 mg/0.5 mL subcutaneous pen injector 1.5 mg SC MO 02/04/18 [History Last Taken 09/04/20] omeprazole 40 mg capsule,delayed release 40 mg PO BID cap 09/24/18 [History Last Taken 09/08/20] aspirin 81 mg tablet,delayed release 81 mg PO DAILY 10/03/18 [History Last Taken 09/08/20] ezetimibe 10 mg tablet 10 mg PO DAILY tab 12/30/19 [History Last Taken 09/07/20] levothyroxine 125 mcg tablet 125 mcg PO DAILY tab 12/30/19 [History Last Taken 09/08/20] acetaminophen [Tylenol] 650 mg PO Q4H PRN 09/08/20 [History Last Taken 09/05/20] citalopram 40 mg PO DAILY 09/08/20 [History Last Taken 09/08/20] insulin lispro [Humalog KwikPen Insulin] See Protocol SUBCUT TIDCM 09/08/20 [History Last Taken 09/05/20] insulin lispro protamin-lispro [Humalog Mix 75-25 KwikPen] 24 unit SUBCUT BREAKFAST 09/08/20 [History Last Taken 09/08/20] insulin lispro protamin-lispro [Humalog Mix 75-25(U-100)Insuln] 5 unit SUBCUT DINNER 09/08/20 [History Last Taken 09/07/20] lactulose 20 g PO BID 09/08/20 [History Last Taken 09/08/20] magnesium oxide 400 mg PO DAILY 09/08/20 [History Last Taken 09/08/20] melatonin 5 mg PO QHS 09/08/20 [History Last Taken 09/07/20] ondansetron HCl 4 mg PO Q8H PRN 09/08/20 [History Last Taken 09/03/20] polyethylene glycol 3350 17 g PO DAILY 09/08/20 [History Last Taken 09/08/20] tramadol 50 mg PO Q8H PRN 09/08/20 [History Last Taken 09/04/20] Allergy/AdvReac Type Severity Reaction Status Date / Time codeine Allergy Unknown Unknown Verified 09/08/20 11:46 Latex, Natural Rubber Allergy skin Verified 09/08/20 16:25 irritation zolpidem [From Ambien] Allergy syncope Verified 09/08/20 11:46 adhesive tape AdvReac skin Verified 09/08/20 16:25 irritation Sulfa (Sulfonamide AdvReac unknown Verified 09/08/20 11:46 Antibiotics) Family History Father CAD (coronary artery disease) Brother CAD (coronary artery disease) Surgical History H/O coronary artery bypass surgery (01/13/05) H/O partial thyroidectomy H/O right inguinal hernia repair History of appendectomy History of hysterectomy History of left heart catheterization (01/24/20) History of open reduction and internal fixation (ORIF) procedure History of tonsillectomy Hx of cholecystectomy S/P hemorrhoidectomy Status post placement of implantable loop recorder (2016) Social History Smoking Status: Never smoker second hand exposure: No alcohol intake: never substance use type: does not use caffeine: Yes what type of physical activity do you participate in: walking frequency: 1-2 times per week seatbelt use: always ROS ROS Narrative As per HPI. Otherwise 10 review systems are noncontributory. Physical Exam Const Constitutional Narrative: Alert and oriented x3. No apparent distress. The patient is slow to answer questions but her answers are appropriate. HEENT HEENT Narrative: Normocephalic, atraumatic. Mucous membrane moist without erythema. Eyes Eyes Narrative: Pupil equal round and reactive to light and accommodation. Neck Neck Narrative: Neck is supple. Resp Resp Narrative: Clear to auscultation anteriorly. Cardio Cardio Narrative: Normal S1, S2 no rubs or murmurs. GI GI Narrative: Normal bowel sounds. Abdomen is soft, nontender to palpation. No guarding or rebound. No mass palpable. Extremity Extremity Narrative: No clubbing or cyanosis. There is a 1+ edema of the lower extremities bilaterally. Neuro Neuro Narrative: No focal neurologic deficit. The patient has resting tremor especially of the lower extremities. Lab / Micro Data Result Diagrams: 09/09/20 06:33 09/09/20 00:28 Labs: Laboratory Results - last 24 hr 09/08/20 09/08/20 09/09/20 20:09 22:15 00:28 WBC RBC Hgb Hct MCV MCH MCHC RDW Std Deviation RDW Coeff of Sunitha Plt Count MPV Immature Gran % (Auto) Neut % (Auto) Lymph % (Auto) [place] % (Auto) Eos % (Auto) Baso % (Auto) Absolute Neuts (auto) Absolute Lymphs (auto) Nucleated RBC % Sodium 125 L 126 L Potassium 5.2 H 5.0 Chloride 90 L 93 L Carbon Dioxide 26.0 27.0 Anion Gap 9 6 BUN 92 H 93 H Creatinine 2.90 H 2.76 H Estim Creat Clear Calc 14.54 15.28 Est GFR (MDRD) Af Amer 20 L 21 L Est GFR (MDRD) Non-Af 17 L 18 L BUN/Creatinine Ratio 31.7 H 33.7 H Glucose 162 H 130 H Calcium 8.1 L 7.8 L POC Glucose 159 H 09/09/20 09/09/20 09/09/20 06:33 08:22 11:35 WBC 7.6 RBC 4.08 L Hgb 11.7 L Hct 35.3 L MCV 86.5 MCH 28.7 MCHC 33.1 RDW Std Deviation 50.0 H RDW Coeff of Sunitha 15.7 H Plt Count 238 MPV 9.7 Immature Gran % (Auto) 0.400 Neut % (Auto) 63.0 Lymph % (Auto) 17.0 L [place] % (Auto) 14.8 H Eos % (Auto) 4.3 Baso % (Auto) 0.5 Absolute Neuts (auto) 4.8 Absolute Lymphs (auto) 1.30 Nucleated RBC % 0 Sodium Potassium Chloride Carbon Dioxide Anion Gap BUN Creatinine Estim Creat Clear Calc Est GFR (MDRD) Af Amer Est GFR (MDRD) Non-Af BUN/Creatinine Ratio Glucose Calcium POC Glucose 123 H 225 H 09/09/20 16:52 WBC RBC Hgb Hct MCV MCH MCHC RDW Std Deviation RDW Coeff of Sunitha Plt Count MPV Immature Gran % (Auto) Neut % (Auto) Lymph % (Auto) [place] % (Auto) Eos % (Auto) Baso % (Auto) Absolute Neuts (auto) Absolute Lymphs (auto) Nucleated RBC % Sodium Potassium Chloride Carbon Dioxide Anion Gap BUN Creatinine Estim Creat Clear Calc Est GFR (MDRD) Af Amer Est GFR (MDRD) Non-Af BUN/Creatinine Ratio Glucose Calcium POC Glucose 178 H
[2020-09-09] MEDS: hydrOXYzine PAM 25 MG Capsule PO (22:10)
[2020-09-09 23:15] LABS: Bedside Glucose 197 mg/dL (70-110)
[2020-09-10] VITALS (10 sets, daily range): BP systolic 94–123; BP diastolic 41–59; PULSE 48–80; RESP 16–18; TEMP 36.4–36.8; O2SAT 94–98
[2020-09-10 05:19] LABS: Urine Sodium 16 mmol/L (Not Establ.)
--- NOTE | 2020-09-10 05:19 | NURSING ---
there has been no urine output in the restrepo bag this shift. earlier in the shift pt had some urine in her attends. inserted a new latex free restrepo catheter. old restrepo was left in place to aid in placement. latex free restrepo inserted and instant clear yellow urine return. urine sample sent
[2020-09-10 05:24] LABS: Urea Nitrogen, Urine 620 mg/dL (NO RANGE EST.)
[2020-09-10 05:52] LABS: Osmolality, Urine 423 mOsm/KG
[2020-09-10] MEDS: Insulin Lispro 100 UNIT/ML INSULN.PEN SC ×3 (06:40→16:08)
[2020-09-10] MEDS: Levothyroxine 125 MCG Tablet PO (06:41)
[2020-09-10 06:50] LABS: Absolute Lymphocyte Count 1.59 X10^3/uL (0.83-4.51); Absolute Neutrophil Count 5.3 X10^3/uL (2.0-7.7); Basophil# 0.04 X10^3/uL; Basophil% 0.5 % (0-1); Eosinophils% 2.4 % (0-5); Hematocrit 39.4 % (37-47); Hemoglobin 12.5 g/dL (12.0-15.0); Lymphocyte # 1.59 X10^3/ul (0.83-4.51); Lymphocyte % 19.2 % (19-41); Mean Corp Hgb Conc 31.7 g/dL (32-36); Mean Corpuscular Hgb 28.3 pg (27.0-32.0); Mean Corpuscular Volume 89.3 fL (81-99); Mean Platelet Vol. 9.6 fl (6.2-12.0); Monocyte# 1.12 X10^3/uL; Monocyte% 13.5 % (0-10); NRBC Flagged by Analyzer 0 % (0-5); Neutrophil # 5.28 X10^3/uL (2.7-7.7); Neutrophil % 63.8 % (47-70); Platelet Count 249 K/mm3 (150-450); RBC Distribution Width CV 15.5 % (11.6-14.6); RBC Distribution Width SD 51.2 fl (35.1-43.9); Red Blood Count 4.41 M/mm3 (4.2-5.4); White Blood Count 8.3 K/mm3 (4.4-11.0)
[2020-09-10 07:06] LABS: Bedside Glucose 154 mg/dL (70-110)
[2020-09-10 07:12] LABS: Anion Gap 12 (5-15); BUN 86 mg/dL (7-18); Calcium,Total 7.8 mg/dL (8.5-10.1); Chloride 94 mmol/L (98-107); Creatinine, Serum 2.46 mg/dL (0.55-1.02); EST Glomerular Filtration Rate 20 mL/min (>60); Est Glom Filt Rate - Afr Amer 24 mL/min (>60); Estimated Creatinine Clearance 17.15 ml/min; Glucose 146 mg/dL (74-106); Magnesium 2.8 mg/dL (1.6-2.6); Potassium 4.4 mmol/L (3.5-5.1); Sodium Level 129 mmol/L (136-145)
--- NOTE | 2020-09-10 07:12 | PN.HOSP_ITS ---
Objective Data Objective Data Vital Signs: Vital Signs Temp Pulse Resp BP Pulse Ox 97.6 F L 75 18 123/52 H 96 09/10/20 04:13 09/10/20 04:13 09/10/20 04:13 09/10/20 04:13 09/10/20 04:13 Oxygen Delivery Method Room Air Weight: 75.841 kg Body Mass Index (BMI) 26.2 Intake & Output: Intake and Output for Last 24 Hours 09/08/20 09/09/20 09/10/20 23:59 23:59 23:59 Intake Total 2189.58 / 2189.58 2661.25 / 2661.25 75 / 75 Output Total 150 / 150 500 / 500 50 / 50 Balance 2039.58 / 9.58 2161.25 / 2161.25 Lab / Micro Data Result Diagrams: 09/10/20 05:29 09/10/20 05:29 Labs: Laboratory Results - last 24 hr 09/09/20 09/09/20 09/09/20 08:22 11:35 16:52 WBC RBC Hgb Hct MCV MCH MCHC RDW Std Deviation RDW Coeff of Sunitha Plt Count MPV Immature Gran % (Auto) Neut % (Auto) Lymph % (Auto) [place] % (Auto) Eos % (Auto) Baso % (Auto) Absolute Neuts (auto) Absolute Lymphs (auto) Nucleated RBC % Urine Osmolality Ur Random Sodium Urine Creatinine Urine Potassium Urine Urea Nitrogen POC Glucose 123 H 225 H 178 H 09/09/20 09/10/20 09/10/20 22:01 05:09 05:10 WBC RBC Hgb Hct MCV MCH MCHC RDW Std Deviation RDW Coeff of Sunitha Plt Count MPV Immature Gran % (Auto) Neut % (Auto) Lymph % (Auto) [place] % (Auto) Eos % (Auto) Baso % (Auto) Absolute Neuts (auto) Absolute Lymphs (auto) Nucleated RBC % Urine Osmolality 423 Ur Random Sodium 16 Urine Creatinine 135.00 Urine Potassium 32.0 Urine Urea Nitrogen 620 POC Glucose 197 H 09/10/20 09/10/20 05:29 06:39 WBC 8.3 RBC 4.41 Hgb 12.5 Hct 39.4 MCV 89.3 MCH 28.3 MCHC 31.7 L RDW Std Deviation 51.2 H RDW Coeff of Sunitha 15.5 H Plt Count 249 MPV 9.6 Immature Gran % (Auto) 0.600 Neut % (Auto) 63.8 Lymph % (Auto) 19.2 [place] % (Auto) 13.5 H Eos % (Auto) 2.4 Baso % (Auto) 0.5 Absolute Neuts (auto) 5.3 Absolute Lymphs (auto) 1.59 Nucleated RBC % 0 Urine Osmolality Ur Random Sodium Urine Creatinine Urine Potassium Urine Urea Nitrogen POC Glucose 154 H Physical Exam Narrative GENERAL: cooperative HEENT: Atraumatic; EYES; Anicteric, Normal Conjunctiva NECK; supple, normal thyroid, RESPIRATORY: Diminished to auscultation CARDIOVASCULAR: Regular S1 S2, GI: soft, normoactive bowel sounds, abdomen distended : No Renal angle tenderness; EXTREMITIES: edema, no clubbing, MUSCULOSKELETAL: no muscle waisting NEURO: Awake; no lateralizing signs. SKIN: No Rash PSYCH; Flat affect Const alert and oriented x3 General Appearance: cooperative Orientation / Consciousness: lethargic HEENT normocephalic and head/scalp atraumatic Eyes PERRL, EOMs intact bilaterally and conjunctivae normal Neck no lymphadenopathy Resp normal respiratory effort, no use of accessory muscles and clear to auscultation bilaterally Cardio regular rate, regular rhythm, S1 normal heart sound, S2 normal heart sound and no murmurs GI normal to inspection, nondistended, normoactive bowel sounds, soft to palpation, non-tender and non-distended Extremity normal to inspection Extremity Narrative: 1+ bipedal edema Skin no rashes or lesions noted Neuro oriented x3 Sensorium / Orientation: awake and alert Psych affect normal Assessment & Plan Assessment/Plan (1) Acute hyponatremia: (2) Nonalcoholic fatty liver disease: (3) Acute on chronic renal failure: PLAN: Patient is an 80-year-old resident of an extended care facility brought in with generalized malaise and headache as well as sore throat. Patient was found to be hyponatremic on admission admitted to regular nursing floor on a monitored bed for further management 1. Acute hyponatremia ?From intravascular volume depletion admitted to monitored bed. As part of her evaluation urine osmolality serum osmolality as well as urine sodium levels ordered.. Patient urine sodium was less than 5 currently on IV fluids with subsequent monitoring of electrolyte. Patient seen in consultation by nephrology 2. Acute kidney injury superimposed on chronic kidney disease stage III ?Patient currently being rehydrated consult placed to nephrology 3. Nonalcoholic fatty liver disease ?With complications including ascites patient undergo serial paracentesis as outpatient plan is for repeat paracentesis possibly on 09/11/2020 with concomitant administration of albumin 4. Coronary artery disease ?Status post CABG 5. Diabetes mellitus type II -patient's oral hypoglycemics held. Placed on long acting insulin as well as dulaglutide, Accu-Cheks a.c. and at bedtime and covered with sliding scale insulin 6. Hypothyroidism - Patient is on levothyroxine home dose continued 7. Diabetic neuropathy ?Patient is on gabapentin 8. Depression ?Patient is on SSRI 9. DVT prophylaxis ?SC Lovenox 10. Physical deconditioning - Requested for PT OT eval and [employer] social science teacher to assist with discharge planning. Patient is also appropriate for palliative care referral Visit Charges Inpatient E&M: 18721 Subs Hosp L2
[2020-09-10] MEDS: Glucerna Shake 120 ML LIQUID PO ×4 (09:59→22:16)
[2020-09-10] MEDS: Menthol/Lanolin/Calamine/Znox 113 GM Tube 1 APPLIC TOPICAL ×4 (09:59→22:17)
[2020-09-10] MEDS: Ezetimibe 10 MG Tablet PO (10:00)
[2020-09-10] MEDS: Pantoprazole Sodium 40 MG Tablet PO (10:00)
[2020-09-10] MEDS: Enoxaparin 30 MG/0.3 ML Syringe SC (10:00)
[2020-09-10] MEDS: Citalopram 40 MG TABLET PO (10:00)
[2020-09-10] MEDS: Lactulose 20 GM/30 ML UDC PO (10:00)
[2020-09-10] MEDS: Multivitamins,Ther W-Minerals Tablet 1 TABLET PO (10:01)
[2020-09-10] MEDS: Aspirin E.C. 81 MG Tablet PO (10:02)
[2020-09-10] MEDS: Metoprolol(XL)Succ 100 MG Tablet PO (10:02)
[2020-09-10] MEDS: Loratadine 10 MG Tablet PO (10:02)
[2020-09-10] MEDS: Insulin Human 75/25 Kwickpen 24 UNIT SC (10:04)
[2020-09-10 12:02] LABS: Thyroid Stim Hormone (TSH) 0.17 uIU/mL (0.358-3.74)
[2020-09-10 12:21] LABS: Bedside Glucose 245 mg/dL (70-110)
[2020-09-10] MEDS: 0.9% Normal Saline 1,000 ML 75 ML IV ×2 (12:39→23:42)
[2020-09-10] MEDS: Insulin Human 75/25 Kwickpen 5 UNIT SC (16:08)
[2020-09-10 16:20] LABS: Bedside Glucose 203 mg/dL (70-110)
--- NOTE | 2020-09-10 21:09 | PN.RENAL_ITS ---
Subjective Subjective Following for LISSET and hyponatremia. Pt denies CP, SOB, nausea. No increaing edema. Objective Data Objective Data Vital Signs: Vital Signs Temp Pulse Resp BP Pulse Ox 98.0 F 61 18 100/58 L 98 09/10/20 15:14 09/10/20 15:16 09/10/20 15:14 09/10/20 15:14 09/10/20 15:14 Oxygen Delivery Method Room Air Weight: 75.841 kg Body Mass Index (BMI) 26.2 Intake & Output: Intake and Output for Last 24 Hours 09/08/20 09/09/20 09/10/20 23:59 23:59 23:59 Intake Total 2189.58 / 2189.58 2661.25 / 2661.25 1275 / 1275 Output Total 150 / 150 500 / 500 175 / 175 Balance 2039.58 / 2039.58 2161.25 / 2161.25 1100 / 1100 Lab / Micro Data Result Diagrams: 09/10/20 05:29 09/10/20 05:29 Labs: Laboratory Results - last 24 hr 09/09/20 09/10/20 09/10/20 22:01 05:09 05:10 WBC RBC Hgb Hct MCV MCH MCHC RDW Std Deviation RDW Coeff of Sunitha Plt Count MPV Immature Gran % (Auto) Neut % (Auto) Lymph % (Auto) [place] % (Auto) Eos % (Auto) Baso % (Auto) Absolute Neuts (auto) Absolute Lymphs (auto) Nucleated RBC % Sodium Potassium Chloride Carbon Dioxide Anion Gap BUN Creatinine Estim Creat Clear Calc Est GFR (MDRD) Af Amer Est GFR (MDRD) Non-Af BUN/Creatinine Ratio Glucose Calcium Magnesium TSH Urine Osmolality 423 Ur Random Sodium 16 Urine Creatinine 135.00 Urine Potassium 32.0 Urine Urea Nitrogen 620 POC Glucose 197 H 09/10/20 09/10/20 09/10/20 05:29 05:29 05:32 WBC 8.3 RBC 4.41 Hgb 12.5 Hct 39.4 MCV 89.3 MCH 28.3 MCHC 31.7 L RDW Std Deviation 51.2 H RDW Coeff of Sunitha 15.5 H Plt Count 249 MPV 9.6 Immature Gran % (Auto) 0.600 Neut % (Auto) 63.8 Lymph % (Auto) 19.2 [place] % (Auto) 13.5 H Eos % (Auto) 2.4 Baso % (Auto) 0.5 Absolute Neuts (auto) 5.3 Absolute Lymphs (auto) 1.59 Nucleated RBC % 0 Sodium 129 L Potassium 4.4 Chloride 94 L Carbon Dioxide 23.0 Anion Gap 12 BUN 86 H Creatinine 2.46 H Estim Creat Clear Calc 17.15 Est GFR (MDRD) Af Amer 24 L Est GFR (MDRD) Non-Af 20 L BUN/Creatinine Ratio 35.0 H Glucose 146 H Calcium 7.8 L Magnesium 2.8 H TSH 0.17 L Urine Osmolality Ur Random Sodium Urine Creatinine Urine Potassium Urine Urea Nitrogen POC Glucose 09/10/20 09/10/20 09/10/20 06:39 12:13 16:06 WBC RBC Hgb Hct MCV MCH MCHC RDW Std Deviation RDW Coeff of Sunitha Plt Count MPV Immature Gran % (Auto) Neut % (Auto) Lymph % (Auto) [place] % (Auto) Eos % (Auto) Baso % (Auto) Absolute Neuts (auto) Absolute Lymphs (auto) Nucleated RBC % Sodium Potassium Chloride Carbon Dioxide Anion Gap BUN Creatinine Estim Creat Clear Calc Est GFR (MDRD) Af Amer Est GFR (MDRD) Non-Af BUN/Creatinine Ratio Glucose Calcium Magnesium TSH Urine Osmolality Ur Random Sodium Urine Creatinine Urine Potassium Urine Urea Nitrogen POC Glucose 154 H 245 H 203 H Physical Exam Const Constitutional Narrative: Alert and oriented x3. No apparent distress. The patient is slow to answer questions but her answers are appropriate. Eyes Eyes Narrative: Pupil equal round and reactive to light and accommodation. Neck Neck Narrative: Neck is supple. Resp Resp Narrative: Clear to auscultation anteriorly. Cardio Cardio Narrative: Normal S1, S2 no rubs or murmurs. GI GI Narrative: Normal bowel sounds. Abdomen is soft, nontender to palpation. No guarding or rebound. No mass palpable. Extremity Extremity Narrative: No clubbing or cyanosis. There is a 1+ edema of the lower extremities bilaterally. Neuro Neuro Narrative: No focal neurologic deficit. The patient has resting tremor especially of the lower extremities. Assessment & Plan Assessment/Plan (1) LISSET (acute kidney injury): PLAN: LISSET is likely due to volume depletion. Serum creatinine was 3.3 mg/dL on presentation (09/08/2020). Urine sodium was less than 20 mmol/L. This is consistent with LISSET due to volume depletion related to diarrhea and poor oral intake. Renal function is already improving with IV fluid. I agree with continuing IV fluid today since appetite is still poor. Recheck renal function again tomorrow. Current medications are reviewed and are all appropriately dosed for her estimated creatinine clearance. (2) Chronic kidney disease, stage 3b: PLAN: The patient has stage IIIb CKD with baseline serum creatinine of around 1.3 to 1.6 mg/dL. CKD is possibly due to diabetic kidney disease. Once the patient is back at her baseline renal function or in steady state, I will check urine protein to creatinine ratio. (3) Hyponatremia: PLAN: Hyponatremia appears to be chronic. Serum sodium was 134 in April of this year. However, there is an acute exacerbation of hyponatremia. She presented with serum sodium concentration of 123 mmol/L. Sodium level is better today at 129 mmol/L. Acute hyponatremia is likely due to volume depletion as well. Urine sodium was less than 20. Continue volume repletion with IV saline and encourage the patient to increase oral intake of solute. The patient is not symptomatic from the current level of hyponatremia. Recheck serum sodium tomorrow. No need to stop citalopram at this time. (4) Hyperkalemia: PLAN: The patient presented with potassium level of 5.2 mmol/L. Potassium level is better today at 4.4 mmol/L. Hyperkalemia is mild and is likely related to LISSET. No need for extensive work-up at this point. Recheck potassium level tomorrow (5) Diarrhea: PLAN: Subjectively improved. Management and work-up for etiology of diarrhea as per hospital medicine service.
[2020-09-10 22:46] LABS: Bedside Glucose 118 mg/dL (70-110)
[2020-09-11] VITALS (12 sets, daily range): BP systolic 95–112; BP diastolic 43–52; PULSE 44–53; RESP 16–18; TEMP 36.5–37.1; O2SAT 95–97
[2020-09-11 05:47] LABS: Absolute Lymphocyte Count 1.88 X10^3/uL (0.83-4.51); Absolute Neutrophil Count 4.9 X10^3/uL (2.0-7.7); Basophil# 0.05 X10^3/uL; Basophil% 0.6 % (0-1); Eosinophil# 0.35 X10^3/uL; Eosinophils% 4.2 % (0-5); Hematocrit 35.1 % (37-47); Hemoglobin 11.3 g/dL (12.0-15.0); Lymphocyte # 1.88 X10^3/ul (0.83-4.51); Lymphocyte % 22.5 % (19-41); Mean Corp Hgb Conc 32.2 g/dL (32-36); Mean Corpuscular Hgb 28.5 pg (27.0-32.0); Mean Corpuscular Volume 88.6 fL (81-99); Monocyte# 1.15 X10^3/uL; Monocyte% 13.8 % (0-10); NRBC Flagged by Analyzer 0 % (0-5); Neutrophil # 4.89 X10^3/uL (2.7-7.7); Neutrophil % 58.4 % (47-70); Platelet Count 217 K/mm3 (150-450); RBC Distribution Width CV 15.9 % (11.6-14.6); RBC Distribution Width SD 51.5 fl (35.1-43.9); Red Blood Count 3.96 M/mm3 (4.2-5.4); White Blood Count 8.4 K/mm3 (4.4-11.0)
[2020-09-11 06:04] LABS: Anion Gap 9 (5-15); BUN 87 mg/dL (7-18); BUN/Creat Ratio 37.2 RATIO (10-20); Calcium,Total 7.5 mg/dL (8.5-10.1); Chloride 98 mmol/L (98-107); Creatinine, Serum 2.34 mg/dL (0.55-1.02); EST Glomerular Filtration Rate 21 mL/min (>60); Est Glom Filt Rate - Afr Amer 26 mL/min (>60); Estimated Creatinine Clearance 18.03 ml/min; Glucose 132 mg/dL (74-106); Potassium 4.9 mmol/L (3.5-5.1); Sodium Level 129 mmol/L (136-145)
[2020-09-11] MEDS: Levothyroxine 125 MCG Tablet PO (06:30)
[2020-09-11 07:05] LABS: Bedside Glucose 145 mg/dL (70-110)
--- NOTE | 2020-09-11 09:59 | NURSING ---
wound photo: left buttock
--- NOTE | 2020-09-11 10:03 | CASEMGMT ---
Addendum entered by Darline Parks 09/11/20 15:01: POA forms received, HIRO placed forms on pt's chart. Original Note: Social Work Note SW reviewed chart. Pt is listed as being from [facility] however per Michelle BROWNE-S note, family wanted pt to go to TCU and referral was provided to [facility] with TCU. HIRO placed a call to [facility] with TCU, no referral was given and TCU has no beds available. HIRO placed a call to Darline at [facility]. Pt is custodial resident at [facility] and is able to return when medically ready. HIRO asked Darline if she had POA forms for pt, Darline states they do have POA on file and will fax to this worker. HIRO faxed updated clinicals to [facility]. HIRO will follow up with pt and pt's family to confirm discharge plans. Darline Parks SENIOR ACCOUNT DIRECTOR, BUILDING SERVICES ENGINEER
[2020-09-11] MEDS: Menthol/Lanolin/Calamine/Znox 113 GM Tube 1 APPLIC TOPICAL ×4 (10:06→22:13)
[2020-09-11] MEDS: Aspirin E.C. 81 MG Tablet PO (10:06)
[2020-09-11] MEDS: Multivitamins,Ther W-Minerals Tablet 1 TABLET PO (10:06)
[2020-09-11] MEDS: Citalopram 40 MG TABLET PO (10:07)
[2020-09-11] MEDS: Lactulose 20 GM/30 ML UDC PO (10:07)
[2020-09-11] MEDS: Enoxaparin 30 MG/0.3 ML Syringe SC (10:07)
[2020-09-11] MEDS: Loratadine 10 MG Tablet PO (10:07)
[2020-09-11] MEDS: Pantoprazole Sodium 40 MG Tablet PO (10:07)
[2020-09-11] MEDS: Ezetimibe 10 MG Tablet PO (10:08)
[2020-09-11] MEDS: Cholecalciferol (VIT D3) 25 MCG TABLET (1,000 UNITS) 50 MCG PO (10:08)
[2020-09-11] MEDS: Glucerna Shake 120 ML LIQUID PO ×2 (10:11→14:46)
--- NOTE | 2020-09-11 11:20 | CASEMGMT ---
Palliative screening tool completed for [facility]. Patient meets criteria for palliative referral. RN CM updated hospitalist and agreeable to referral. RN CM called and updated [facility] regarding consult.
[2020-09-11 11:40] LABS: Bedside Glucose 184 mg/dL (70-110)
[2020-09-11] MEDS: Acetaminophen 325 MG Tablet 650 MG PO (12:19)
[2020-09-11] MEDS: Insulin Lispro 100 UNIT/ML INSULN.PEN SC ×2 (12:20→18:12)
[2020-09-11] MEDS: 0.9% Normal Saline 1,000 ML 75 ML IV ×2 (12:26→22:12)
--- NOTE | 2020-09-11 13:26 | PN.HOSP_ITS ---
Subjective Subjective Has not had an appetite, therefore, has not been eating or drinking. Had not throughts about what would/could happen if did not eat or drink. Has been stressed caring for her demented . She did not talk with her son about it because he was busy. However, he is currently caring for his father now. Objective Data Objective Data Vital Signs: Vital Signs Temp Pulse Resp BP Pulse Ox 36.7 C 53 L 18 112/45 L 95 09/11/20 12:14 09/11/20 12:19 09/11/20 12:14 09/11/20 12:19 09/11/20 12:14 Oxygen Delivery Method Room Air Weight: 75.841 kg Body Mass Index (BMI) 26.2 Intake & Output: Intake and Output for Last 24 Hours 09/09/20 09/10/20 09/11/20 23:59 23:59 23:59 Intake Total 2661.25 / 2661.25 2353.75 / 2353.75 1285 / 1285 Output Total 500 / 500 295 / 295 155 / 155 Balance 2161.25 / 2161.25 2058.75 / 2058.75 1130 / 1130 Lab / Micro Data Attestation: I reviewed the patient's lab results. Result Diagrams: 09/11/20 05:39 09/11/20 05:39 Labs: Laboratory Results - last 24 hr 09/10/20 09/10/20 09/10/20 05:29 16:06 22:17 WBC RBC Hgb Hct MCV MCH MCHC RDW Std Deviation RDW Coeff of Sunitha Plt Count MPV Immature Gran % (Auto) Neut % (Auto) Lymph % (Auto) Nelson % (Auto) Eos % (Auto) Baso % (Auto) Absolute Neuts (auto) Absolute Lymphs (auto) Nucleated RBC % Sodium Potassium Chloride Carbon Dioxide Anion Gap BUN Creatinine Estim Creat Clear Calc Est GFR (MDRD) Af Amer Est GFR (MDRD) Non-Af BUN/Creatinine Ratio Glucose Calcium Cortisol 22.60 H POC Glucose 203 H 118 H 09/11/20 09/11/20 09/11/20 05:39 05:39 06:29 WBC 8.4 RBC 3.96 L Hgb 11.3 L Hct 35.1 L MCV 88.6 MCH 28.5 MCHC 32.2 RDW Std Deviation 51.5 H RDW Coeff of Sunitha 15.9 H Plt Count 217 MPV 10.0 Immature Gran % (Auto) 0.500 Neut % (Auto) 58.4 Lymph % (Auto) 22.5 Nelson % (Auto) 13.8 H Eos % (Auto) 4.2 Baso % (Auto) 0.6 Absolute Neuts (auto) 4.9 Absolute Lymphs (auto) 1.88 Nucleated RBC % 0 Sodium 129 L Potassium 4.9 Chloride 98 Carbon Dioxide 22.0 Anion Gap 9 BUN 87 H Creatinine 2.34 H Estim Creat Clear Calc 18.03 Est GFR (MDRD) Af Amer 26 L Est GFR (MDRD) Non-Af 21 L BUN/Creatinine Ratio 37.2 H Glucose 132 H Calcium 7.5 L Cortisol POC Glucose 145 H 09/11/20 11:34 WBC RBC Hgb Hct MCV MCH MCHC RDW Std Deviation RDW Coeff of Sunitha Plt Count MPV Immature Gran % (Auto) Neut % (Auto) Lymph % (Auto) Nelson % (Auto) Eos % (Auto) Baso % (Auto) Absolute Neuts (auto) Absolute Lymphs (auto) Nucleated RBC % Sodium Potassium Chloride Carbon Dioxide Anion Gap BUN Creatinine Estim Creat Clear Calc Est GFR (MDRD) Af Amer Est GFR (MDRD) Non-Af BUN/Creatinine Ratio Glucose Calcium Cortisol POC Glucose 184 H Physical Exam Const alert, oriented x3 and no apparent distress HEENT Head and Scalp: normocephalic Eyes PERRL Resp normal respiratory effort and clear to auscultation bilaterally Cardio regular rate, regular rhythm, S1 normal heart sound and S2 normal heart sound GI normal to inspection, nondistended, normoactive bowel sounds, non-tender and non-distended Psych Psych Narrative: flat affect Mood & Affect: depressed Assessment & Plan Assessment/Plan (1) LISSET (acute kidney injury): (2) Hyponatremia: PLAN: 1. LISSET * improved * FEUrea 12.35% 2/2 prerenal * Continue IVF since patient not eating adequately 2. Hyponatremia * improving * d/t volume depletion * Continue with IVF 3. Hyperkalemia * resolved * 2/2 LISSET 4. Depression * complicating long-term recovery * on citalopram * advised to follow up with counseling for better coping skills * pt denies suicidal ideation. * enhanced by caring for her demented . 5. VTE prophylaxis: LMWH Visit Charges Inpatient E&M: 10088 Subs Hosp L2
--- NOTE | 2020-09-11 15:08 | CASEMGMT ---
Darline did fax over POA papers, they are on the chart, shiva Camejo is POA. SW met w/pt and in room, confirmed plan is for pt to return to [facility] when ready. SW not able to offer support to pt at this time in regard to stress around 's dementia, as is in the room. SW called shiva Camejo to also confirm that plan is for pt to return to [facility], son confirmed it is. Son asked SW what to do about the fact that the assisted waited until Friday to send pt to the hospital. He states pt stopped eating Friday and became lethargic, but pt was not sent to hospital until physician saw her Friday. SW encouraged son to call, and w/son's permission also offered to call. Son gave SW permission to speak w/[facility] about this. At discharge, son would prefer pt go by transport rather than he take pt. SW called [facility], spoke w/Darline, let her know shiva Camejo's concerns as outlined above. CARLOS Fong
--- NOTE | 2020-09-11 15:24 | PN.RENAL_ITS ---
Objective Data Objective Data No new complaints. Appetite remains poor. Sodium is better. Vital Signs: Vital Signs Temp Pulse Resp BP Pulse Ox 98.1 F 53 L 18 112/45 L 95 09/11/20 12:14 09/11/20 12:19 09/11/20 12:14 09/11/20 12:19 09/11/20 12:14 Oxygen Delivery Method Room Air Weight: 75.841 kg Body Mass Index (BMI) 26.2 Intake & Output: Intake and Output for Last 24 Hours 09/09/20 09/10/20 09/11/20 23:59 23:59 23:59 Intake Total 2661.25 / 2661.25 2353.75 / 2353.75 1285 / 1285 Output Total 500 / 500 295 / 295 155 / 155 Balance 2161.25 / 2161.25 2058.75 / 2058.75 1130 / 1130 Lab / Micro Data Result Diagrams: 09/11/20 05:39 09/11/20 05:39 Labs: Laboratory Results - last 24 hr 09/10/20 09/10/20 09/10/20 05:29 16:06 22:17 WBC RBC Hgb Hct MCV MCH MCHC RDW Std Deviation RDW Coeff of Sunitha Plt Count MPV Immature Gran % (Auto) Neut % (Auto) Lymph % (Auto) [place] % (Auto) Eos % (Auto) Baso % (Auto) Absolute Neuts (auto) Absolute Lymphs (auto) Nucleated RBC % Sodium Potassium Chloride Carbon Dioxide Anion Gap BUN Creatinine Estim Creat Clear Calc Est GFR (MDRD) Af Amer Est GFR (MDRD) Non-Af BUN/Creatinine Ratio Glucose Calcium Cortisol 22.60 H POC Glucose 203 H 118 H 09/11/20 09/11/20 09/11/20 05:39 05:39 06:29 WBC 8.4 RBC 3.96 L Hgb 11.3 L Hct 35.1 L MCV 88.6 MCH 28.5 MCHC 32.2 RDW Std Deviation 51.5 H RDW Coeff of Sunitha 15.9 H Plt Count 217 MPV 10.0 Immature Gran % (Auto) 0.500 Neut % (Auto) 58.4 Lymph % (Auto) 22.5 [place] % (Auto) 13.8 H Eos % (Auto) 4.2 Baso % (Auto) 0.6 Absolute Neuts (auto) 4.9 Absolute Lymphs (auto) 1.88 Nucleated RBC % 0 Sodium 129 L Potassium 4.9 Chloride 98 Carbon Dioxide 22.0 Anion Gap 9 BUN 87 H Creatinine 2.34 H Estim Creat Clear Calc 18.03 Est GFR (MDRD) Af Amer 26 L Est GFR (MDRD) Non-Af 21 L BUN/Creatinine Ratio 37.2 H Glucose 132 H Calcium 7.5 L Cortisol POC Glucose 145 H 09/11/20 11:34 WBC RBC Hgb Hct MCV MCH MCHC RDW Std Deviation RDW Coeff of Sunitha Plt Count MPV Immature Gran % (Auto) Neut % (Auto) Lymph % (Auto) [place] % (Auto) Eos % (Auto) Baso % (Auto) Absolute Neuts (auto) Absolute Lymphs (auto) Nucleated RBC % Sodium Potassium Chloride Carbon Dioxide Anion Gap BUN Creatinine Estim Creat Clear Calc Est GFR (MDRD) Af Amer Est GFR (MDRD) Non-Af BUN/Creatinine Ratio Glucose Calcium Cortisol POC Glucose 184 H Physical Exam Const Constitutional Narrative: Alert and oriented x3. No apparent distress. The patient is slow to answer questions but her answers are appropriate. Eyes Eyes Narrative: Pupil equal round and reactive to light and accommodation. Neck Neck Narrative: Neck is supple. Resp Resp Narrative: Clear to auscultation anteriorly. Cardio Cardio Narrative: Normal S1, S2 no rubs or murmurs. GI GI Narrative: Normal bowel sounds. Abdomen is soft, nontender to palpation. No guarding or rebound. No mass palpable. Extremity Extremity Narrative: No clubbing or cyanosis. There is a 1+ edema of the lower extremities bilaterally. Neuro Neuro Narrative: No focal neurologic deficit. The patient has resting tremor es pecially of the lower extremities. Assessment & Plan Assessment/Plan (1) LISSET (acute kidney injury): PLAN: LISSET is likely due to volume depletion. Serum creatinine was 3.3 mg/dL on presentation (09/08/2020). Urine sodium was less than 20 mmol/L. This is consistent with LISSET due to volume depletion related to diarrhea and poor oral intake. Renal function is already improving with IV fluid. I agree with continuing IV fluid today since appetite is still poor. dw son and at bedside. continue fluids one more day. likely can dc tomorrow if labs continue to get better. might leave her off diuretics for few days and then start with low doses. (2) Chronic kidney disease, stage 3b: PLAN: The patient has stage IIIb CKD with baseline serum creatinine of ar ound 1.3 to 1.6 mg/dL. CKD is possibly due to diabetic kidney disease. Once the patient is back at her baseline renal function or in steady state, I will check urine protein to creatinine ratio. (3) Hyponatremia: PLAN: Hyponatremia appears to be chronic. Serum sodium was 134 in April of this year. However, there is an acute exacerbation of hyponatremia. She presented with serum sodium concentration of 123 mmol/L. Sodium level is better today at 129 mmol/L. Acute hyponatremia is likely due to volume depletion as well. Urine sodium was less than 20. Continue volume repletion with IV saline and encourage the patient to increase oral intake of solute. The patient is not symptomatic from the current level of hyponatremia. (4) Hyperkalemia: PLAN: better (5) Diarrhea: PLAN: Subjectively improved.
--- NOTE | 2020-09-11 15:37 | CON.PCM.PA_ITS ---
Assessment & Plan Assessment/Plan (1) Dyspnea: QUALIFIERS: Dyspnea type: dyspnea on exertion Qualified Code(s): R06.00 - Dyspnea, unspecified (2) Weakness: (3) Chronic kidney disease, stage 3b: (4) LISSET (acute kidney injury): (5) Hyponatremia: (6) Hyperkalemia: (7) Diarrhea: QUALIFIERS: Diarrhea type: unspecified type Qualified Code(s): R19.7 - Diarrhea, unspecified (8) Nonalcoholic fatty liver disease: (9) History of abdominal paracentesis: (10) Ascites: QUALIFIERS: Ascites type: other type Qualified Code(s): R18.8 - Other ascites (11) H/O coronary artery bypass surgery: (12) Atherosclerosis of coronary artery of [place] heart without angina pectoris: QUALIFIERS: Coronary Disease-Associated Artery/Lesion type: unspecified vessel or lesion type Qualified Code(s): I25.10 - Atherosclerotic heart disease of [place] coronary artery without angina pectoris (13) Essential (primary) hypertension: (14) Hyperlipidemia: QUALIFIERS: Hyperlipidemia type: pure hypercholesterolemia Qualified Code(s): E78.00 - Pure hypercholesterolemia, unspecified; E78.0 - Pure hypercholesterolemia (15) Peripheral arterial occlusive disease: (16) Bilateral carotid artery stenosis: (17) TIA (transient ischemic attack): PLAN: 80-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 Resident of [facility]. ?Weakness and debility: Multifactorial given electrolyte imbalance, very poor appetite, anxiety and depression, and other comorbidities. She is receiving therapy. Plan is to return to [facility], possibly with more therapy. We will follow her there as an outpatient. ?Ascites: Last paracentesis 08/29/2020, total of 4400 mL of bre-colored fluid was removed. I suspect she will require additional fluid removal as she is quite distended and uncomfortable today. ?Dyspnea: Secondary to above, also pulse and BP have been low, volume depletion. Manage underlying conditions, no recommendations for additional medications at this time except for possibly low-dose lorazepam but would hold off with recent lethargy. We can reevaluate in the assisted. ?CKD/CAD/HTN/HLD/PAD/carotid artery stenosis/TIA: Complicates overall care, management, recovery, and prognosis. Thank you for the opportunity to participate in this patient's care, please do not hesitate to contact [facility] with any further questions or concerns. Palliative direct line is [phone]. We will have RN follow up approximately 3 days after discharge to home and will discuss palliative services further at that time. Goals of care are improving quality of life, minimizing symptoms, comfort measures. Greater than 50% of F2F visit dedicated to education and counseling of palliative care services, medications, comorbid conditions and potential assistance with management, and plan of care moving forward. Start time: 1523 End time: 1617 HPI Consult Data Date of Consult: 09/11/20 HPI Narrative HPI Narrative: EKATERINA ROBERTS, is a 80 F who presented to [facility] 09/08/2020 from [facility] with increased lethargy and weakness. Blood pressures have been running low in the 80s systolic. Patient has been hyponatremic and complained of sore throat and headache. Son gave most of history upon presentation, also reported increase in lower extremity edema. Her diuretics have been recently adjusted. Patient has a history of cirrhosis. Presenting creatinine was up to 3.3, baseline noted to be 1.0-1.5. Also has history of ascites requiring paracentesis in the past. She is on chronic lactulose. Nephrology was consulted, reports they may leave her off diuretics for few days then start low-dose at the assisted. Notes that hyponatremia appears to be chronic, but currently exacerbated secondary to volume depletion. Hyponatremia and LISSET have improved with IV fluid resuscitation. Patient noted to have significant depression, on citalopram. She is not in counseling. Patient is a DNR CCA according to note from hospitalist. Her son, Bashir is HC POA. Apparently patient's spouse has dementia and this causes her significant distress. Patient reports she is feeling worse today, her abdomen is quite distended and she has no appetite whatsoever. She is very sleepy but arousable to touch. She is having some back pain, which is chronic. Rating 4-5 out of 10. She does not take anything for this at home. It appears she has had very little urine output since 0600, appears to be around 150 mL. Nephrology is on board. Unclear if she will have a paracentesis today or later this week? Patient is listed as a full code in her medical record, but again there is a documented discussion on CODE STATUS and hospitalist note, listed as DNR CCA. Charge nurse was notified to address. [facility] Medical History Anxiety Ascites Asthma Atherosclerosis of coronary artery of [place] heart without angina pectoris Bilateral carotid artery stenosis Carotid artery stenosis Cirrhosis Depression Diabetes DVT (deep venous thrombosis) Essential (primary) hypertension GERD (gastroesophageal reflux disease) Hemorrhoid History of abdominal paracentesis (08/29/20) Hyperlipidemia Hyperlipidemia Hypothyroidism Kidney disease Left thyroid nodule Neuropathy Nonalcoholic fatty liver disease Peripheral arterial occlusive disease TIA (transient ischemic attack) (2016) Type 2 diabetes mellitus Home Medications gabapentin 300 mg capsule 300 mg PO BID cap 10/01/17 [History Last Taken 09/08/20] un-rym-rpcms-calcium carb-K1 1 ea PO DAILY 12/03/17 [History Last Taken 09/08/20] dulaglutide 1.5 mg/0.5 mL subcutaneous pen injector 1.5 mg SC MO 02/04/18 [History Last Taken 09/04/20] omeprazole 40 mg capsule,delayed release 40 mg PO BID cap 09/24/18 [History Last Taken 09/08/20] aspirin 81 mg tablet,delayed release 81 mg PO DAILY 10/03/18 [History Last Taken 09/08/20] ezetimibe 10 mg tablet 10 mg PO DAILY tab 12/30/19 [History Last Taken 09/07/20] levothyroxine 125 mcg tablet 125 mcg PO DAILY tab 12/30/19 [History Last Taken 09/08/20] acetaminophen [Tylenol] 650 mg PO Q4H PRN 09/08/20 [History Last Taken 09/05/20] citalopram 40 mg PO DAILY 09/08/20 [History Last Taken 09/08/20] insulin lispro [Humalog KwikPen Insulin] See Protocol SUBCUT TIDCM 09/08/20 [History Last Taken 09/05/20] insulin lispro protamin-lispro [Humalog Mix 75-25 KwikPen] 24 unit SUBCUT BREAKFAST 09/08/20 [History Last Taken 09/08/20] insulin lispro protamin-lispro [Humalog Mix 75-25(U-100)Insuln] 5 unit SUBCUT DINNER 09/08/20 [History Last Taken 09/07/20] lactulose 20 g PO BID 09/08/20 [History Last Taken 09/08/20] magnesium oxide 400 mg PO DAILY 09/08/20 [History Last Taken 09/08/20] melatonin 5 mg PO QHS 09/08/20 [History Last Taken 09/07/20] ondansetron HCl 4 mg PO Q8H PRN 09/08/20 [History Last Taken 09/03/20] polyethylene glycol 3350 17 g PO DAILY 09/08/20 [History Last Taken 09/08/20] tramadol 50 mg PO Q8H PRN 09/08/20 [History Last Taken 09/04/20] Allergy/AdvReac Type Severity Reaction Status Date / Time codeine Allergy Unknown Unknown Verified 09/08/20 11:46 Latex, Natural Rubber Allergy skin Verified 09/08/20 16:25 irritation zolpidem [From Ambien] Allergy syncope Verified 09/08/20 11:46 adhesive tape AdvReac skin Verified 09/08/20 16:25 irritation Sulfa (Sulfonamide AdvReac unknown Verified 09/08/20 11:46 Antibiotics) Family History Father CAD (coronary artery disease) Brother CAD (coronary artery disease) Surgical History H/O coronary artery bypass surgery (01/13/05) H/O partial thyroidectomy H/O right inguinal hernia repair History of appendectomy History of hysterectomy History of left heart catheterization (01/24/20) History of open reduction and internal fixation (ORIF) procedure History of tonsillectomy Hx of cholecystectomy S/P hemorrhoidectomy Status post placement of implantable loop recorder (2015) Social History Smoking Status: Never smoker second hand exposure: No alcohol intake: never substance use type: does not use caffeine: Yes what type of physical activity do you participate in: walking frequency: 1-2 times per week seatbelt use: always ROS ROS Narrative Lethargic but arousable, uncomfortable, mouth appears very dry. Alert to self and place. Lungs diminished throughout. Regular rhythm, bradycardic, + murmur. Abdomen quite distended and generalized tenderness. Villela draining scant amount of concentrated urine. 2+ pitting edema to abdomen down to toes. No chest pain or current shortness of breath. Short of breath with minimal exertion. No numbness or tingling. Flat affect. Cooperative. Purpura to arms. Physical Exam Const no apparent distress Constitutional Narrative: Lethargic but arousable General Appearance: cooperative and ill appearing Orientation / Consciousness: oriented to person, oriented to place and oriented to time Exam Limitations: physical limitations HEENT normocephalic and head/scalp atraumatic Mouth: dry mucous membranes and lip abnormal other (Covered in dried blood) Neck supple General: trachea midline Resp normal respiratory effort Effort and Inspection: able to speak in complete sentences Auscultation: diminished lung sounds diffuse Cardio regular rhythm, S1 normal heart sound and S2 normal heart sound Rate: bradycardia Heart Sounds: murmur GI Inspection: edema findings, anasarca present and abdominal distention Palpation: tender and tense ascites Narrative: Villela catheter, scant dark yellow urine Extremity General Extremity: edema; Negative for cyanosis Skin General Skin Exam: purpura Rashes: no rashes Neuro oriented x3 Sensorium / Orientation: lethargic Speech: speech normal Gait (Neuro): unable to assess gait Psych Appearance: other ill appearing Attitude: calm Activity / Motor Behavior: appropriate eye contact Speech: normal speech Mood & Affect: depressed; Negative for anxious Insight: fair Judgement: fair
[2020-09-11 16:31] LABS: Bedside Glucose 216 mg/dL (70-110)
[2020-09-11] MEDS: NYSTATIN 500,000 UNIT/5 ML UDC 500000 UNIT PO (22:12)
[2020-09-11] MEDS: hydrOXYzine PAM 25 MG Capsule PO (22:12)
[2020-09-11 22:21] LABS: Bedside Glucose 127 mg/dL (70-110)
[2020-09-12] VITALS (10 sets, daily range): BP systolic 96–114; BP diastolic 42–51; PULSE 50–69; RESP 16–22; TEMP 36.6–36.7; O2SAT 94–97
[2020-09-12] MEDS: Furosemide 40 MG/4 ML Vial IV (00:50)
[2020-09-12] MEDS: 0.9% Saline Lock 10 ML Syringe IV (00:50)
[2020-09-12] MEDS: 0.9% Normal Saline 1,000 ML 50 ML IV (00:52)
[2020-09-12 06:08] LABS: Absolute Lymphocyte Count 2.17 X10^3/uL (0.83-4.51); Absolute Neutrophil Count 5.1 X10^3/uL (2.0-7.7); Basophil# 0.06 X10^3/uL; Basophil% 0.7 % (0-1); Eosinophil# 0.28 X10^3/uL; Eosinophils% 3.2 % (0-5); Hematocrit 37.1 % (37-47); Lymphocyte # 2.17 X10^3/ul (0.83-4.51); Lymphocyte % 24.6 % (19-41); Mean Corp Hgb Conc 32.3 g/dL (32-36); Mean Corpuscular Hgb 28.6 pg (27.0-32.0); Mean Corpuscular Volume 88.5 fL (81-99); Mean Platelet Vol. 10.3 fl (6.2-12.0); Monocyte# 1.15 X10^3/uL; Monocyte% 13.1 % (0-10); NRBC Flagged by Analyzer 0 % (0-5); Neutrophil # 5.11 X10^3/uL (2.7-7.7); Neutrophil % 57.9 % (47-70); Platelet Count 244 K/mm3 (150-450); RBC Distribution Width CV 16.2 % (11.6-14.6); RBC Distribution Width SD 52.6 fl (35.1-43.9); Red Blood Count 4.19 M/mm3 (4.2-5.4); White Blood Count 8.8 K/mm3 (4.4-11.0)
[2020-09-12 06:22] LABS: Anion Gap 9 (5-15); BUN 85 mg/dL (7-18); BUN/Creat Ratio 34.8 RATIO (10-20); Calcium,Total 7.7 mg/dL (8.5-10.1); Chloride 99 mmol/L (98-107); Creatinine, Serum 2.44 mg/dL (0.55-1.02); EST Glomerular Filtration Rate 20 mL/min (>60); Est Glom Filt Rate - Afr Amer 24 mL/min (>60); Estimated Creatinine Clearance 17.29 ml/min; Glucose 134 mg/dL (74-106); Potassium 5.2 mmol/L (3.5-5.1); Sodium Level 128 mmol/L (136-145)
[2020-09-12] MEDS: Levothyroxine 125 MCG Tablet PO (06:29)
[2020-09-12 06:40] LABS: Bedside Glucose 148 mg/dL (70-110)
[2020-09-12 08:27] LABS: International Normalized Ratio 1.4; Prothrombin Time (Protime)PT. 16.5 SECONDS (11.7-14.9)
[2020-09-12] MEDS: Aspirin E.C. 81 MG Tablet PO (08:33)
[2020-09-12] MEDS: Multivitamins,Ther W-Minerals Tablet 1 TABLET PO (08:33)
[2020-09-12] MEDS: Citalopram 40 MG TABLET PO (11:27)
[2020-09-12] MEDS: Loratadine 10 MG Tablet PO (11:28)
[2020-09-12] MEDS: Enoxaparin 30 MG/0.3 ML Syringe SC (11:28)
--- NOTE | 2020-09-12 11:28 | CASEMGMT ---
Social Work Note Pt is not medically ready for discharge today. SW faxed updated clinicals to [facility], wrote on fax coversheet that pt is not medically ready for discharge today. SW to continue to follow. Plan: Return to [facility] when medically ready Darline Parks TRUCK DRIVER HEAV[employer], DEHYDROGENATION OPERATOR HEAD
[2020-09-12] MEDS: Pantoprazole Sodium 40 MG Tablet PO (11:29)
[2020-09-12] MEDS: NYSTATIN 500,000 UNIT/5 ML UDC 500000 UNIT PO ×4 (11:29→21:42)
[2020-09-12] MEDS: Cholecalciferol (VIT D3) 25 MCG TABLET (1,000 UNITS) 50 MCG PO (11:31)
[2020-09-12] MEDS: Ezetimibe 10 MG Tablet PO (11:31)
[2020-09-12] MEDS: Insulin Lispro 100 UNIT/ML INSULN.PEN SC ×3 (11:33→21:46)
[2020-09-12] MEDS: Menthol/Lanolin/Calamine/Znox 113 GM Tube 1 APPLIC TOPICAL ×4 (11:35→20:30)
[2020-09-12 11:55] LABS: Bedside Glucose 180 mg/dL (70-110)
--- NOTE | 2020-09-12 11:57 | CASEMGMT ---
SW was asked to see patient as she is depressed and is feeling overwhelmed regarding care for her who has Dementia. SW met with patient, introduced self and role at [facility]. Patient was open to talking with SW. She was quiet and not very forthcoming. She did answer SW's questions. She said her is at their home in [place]. Their son, Bashir is caring for him. Patient has been in [facility] for several months. Patient said she has not tried counseling. SW did give her a list of counselors that take her insurance. She was okay with HIRO calling [facility] about having someone talk with her regarding her depression. HIRO provided as much support as able and told patient that if she would like to talk with SW again she is always welcome to ask. She thanked SW for checking in with her. HIRO then called [facility] and spoke with Darline. She said patient's is still in their assisted living. SW asked if someone could check in with patient regarding her depression. Sonam Tran [employer]METIC SURGEON [employer]
--- NOTE | 2020-09-12 12:00 | PN.HOSP_ITS ---
Subjective Subjective Still not eating. States she has no appetite. Mouth is sore. Objective Data Objective Data Vital Signs: Vital Signs Temp Pulse Resp BP Pulse Ox 36.7 C 56 L 16 99/51 L 94 09/12/20 08:15 09/12/20 11:31 09/12/20 08:15 09/12/20 08:15 09/12/20 08:15 Oxygen Delivery Method Room Air Weight: 75.841 kg Body Mass Index (BMI) 26.2 Intake & Output: Intake and Output for Last 24 Hours 09/10/20 09/11/20 09/12/20 23:59 23:59 23:59 Intake Total 2353.75 / 2353.75 2317.5 / 2317.5 440 / 440 Output Total 295 / 295 180 / 180 90 / 90 Balance 2058.75 / 2058.75 2137.5 / 2137.5 350 / 350 Lab / Micro Data Attestation: I reviewed the patient's lab results. Result Diagrams: 09/12/20 05:16 09/12/20 05:16 Labs: Laboratory Results - last 24 hr 09/11/20 09/11/20 09/12/20 16:07 22:09 05:16 WBC 8.8 RBC 4.19 L Hgb 12.0 Hct 37.1 MCV 88.5 MCH 28.6 MCHC 32.3 RDW Std Deviation 52.6 H RDW Coeff of Sunitha 16.2 H Plt Count 244 MPV 10.3 Immature Gran % (Auto) 0.500 Neut % (Auto) 57.9 Lymph % (Auto) 24.6 [place] % (Auto) 13.1 H Eos % (Auto) 3.2 Baso % (Auto) 0.7 Absolute Neuts (auto) 5.1 Absolute Lymphs (auto) 2.17 Nucleated RBC % 0 PT INR Sodium Potassium Chloride Carbon Dioxide Anion Gap BUN Creatinine Estim Creat Clear Calc Est GFR (MDRD) Af Amer Est GFR (MDRD) Non-Af BUN/Creatinine Ratio Glucose Calcium POC Glucose 216 H 127 H 09/12/20 09/12/20 09/12/20 05:16 05:16 06:28 WBC RBC Hgb Hct MCV MCH MCHC RDW Std Deviation RDW Coeff of Sunitha Plt Count MPV Immature Gran % (Auto) Neut % (Auto) Lymph % (Auto) [place] % (Auto) Eos % (Auto) Baso % (Auto) Absolute Neuts (auto) Absolute Lymphs (auto) Nucleated RBC % PT 16.5 H INR 1.4 Sodium 128 L Potassium 5.2 H Chloride 99 Carbon Dioxide 20.0 L Anion Gap 9 BUN 85 H Creatinine 2.44 H Estim Creat Clear Calc 17.29 Est GFR (MDRD) Af Amer 24 L Est GFR (MDRD) Non-Af 20 L BUN/Creatinine Ratio 34.8 H Glucose 134 H Calcium 7.7 L POC Glucose 148 H 09/12/20 11:25 WBC RBC Hgb Hct MCV MCH MCHC RDW Std Deviation RDW Coeff of Sunitha Plt Count MPV Immature Gran % (Auto) Neut % (Auto) Lymph % (Auto) [place] % (Auto) Eos % (Auto) Baso % (Auto) Absolute Neuts (auto) Absolute Lymphs (auto) Nucleated RBC % PT INR Sodium Potassium Chloride Carbon Dioxide Anion Gap BUN Creatinine Estim Creat Clear Calc Est GFR (MDRD) Af Amer Est GFR (MDRD) Non-Af BUN/Creatinine Ratio Glucose Calcium POC Glucose 180 H Physical Exam Const alert and oriented x3 Resp normal respiratory effort, no retractions, no use of accessory muscles and clear to auscultation bilaterally Cardio regular rate, regular rhythm, S1 normal heart sound and S2 normal heart sound GI non-tender GI Narrative: distended, not taut. Extremity General Extremity: edema Neuro Sensorium / Orientation: awake Assessment & Plan Assessment/Plan (1) LISSET (acute kidney injury): (2) Hyponatremia: PLAN: 1. LISSET * improved overall * FEUrea 12.35% 2/2 prerenal * pt more edematous. IVF held 2. Hyponatremia * improved, but ongoing * d/t volume depletion * monitor * Cortisol normal * TSH 0.17, check FT3, FT4 3. Hyperkalemia * back up * 2/2 LISSET 4. Cirrhosis * 2/2 NALD * MELD 26, mortality risk 19.6% * Child-Loyd 9, grade B * Hold off on paracentesis at this time * diuretics on hold given LISSET 5. DM2 * fair control * poor appetite, so pt has not been receiving scheduled insulin 6. Depression * complicating long-term recovery * on citalopram * advised to follow up with counseling for better coping skills * pt denies suicidal ideation. * enhanced by caring for her demented . 5. VTE prophylaxis: LMWH Visit Charges Inpatient E&M: 06645 Subs Hosp L2
--- NOTE | 2020-09-12 15:15 | CHAPLAIN ---
Type of Pastoral Visit _x__ Initial Visit ___ Follow-up Visit ___ On-call Visit ___ General Patient Visit ___ Spiritual Assessment ___ Family Conference ___ Bereavement ___ Rapid Response ___ Code Blue ___ Other (describe below) Pastoral Care Referral From _x__ Patient ___ Family ___ Nurse ___ Physician ___ Sales Clerk ___ Senior Clinical Sas Programmer ___ Other (describe below) Sacrament/Intervention _x__ Active listening ___ Anointing ___ Orthodoxy ___ Bereavement ___ Communion ___ Isa exploration ___ _x__ Life review _x__ Prayer ___ Reconciliation ___ Sacrament of Sick _x__ Supportive presence ___ Wedding ___ Other (describe below) Pastoral Comments 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
[2020-09-12 17:00] LABS: Bedside Glucose 190 mg/dL (70-110)
--- NOTE | 2020-09-12 17:25 | PN.RENAL_ITS ---
Subjective Subjective no new complaints Objective Data Objective Data Vital Signs: Vital Signs Temp Pulse Resp BP Pulse Ox 97.8 F 69 16 96/51 L 97 09/12/20 14:01 09/12/20 16:08 09/12/20 14:01 09/12/20 14:01 09/12/20 14:01 Oxygen Delivery Method Room Air Weight: 75.841 kg Body Mass Index (BMI) 26.2 Intake & Output: Intake and Output for Last 24 Hours 09/10/20 09/11/20 09/12/20 23:59 23:59 23:59 Intake Total 2353.75 / 2353.75 2317.5 / 2317.5 1063.33 / 1063.33 Output Total 295 / 295 180 / 180 90 / 90 Balance 2058.75 / 2058.75 2137.5 / 2137.5 973.33 / 973.33 Lab / Micro Data Result Diagrams: 09/12/20 05:16 09/12/20 05:16 Labs: Laboratory Results - last 24 hr 09/11/20 09/12/20 09/12/20 22:09 05:16 05:16 WBC 8.8 RBC 4.19 L Hgb 12.0 Hct 37.1 MCV 88.5 MCH 28.6 MCHC 32.3 RDW Std Deviation 52.6 H RDW Coeff of Sunitha 16.2 H Plt Count 244 MPV 10.3 Immature Gran % (Auto) 0.500 Neut % (Auto) 57.9 Lymph % (Auto) 24.6 [place] % (Auto) 13.1 H Eos % (Auto) 3.2 Baso % (Auto) 0.7 Absolute Neuts (auto) 5.1 Absolute Lymphs (auto) 2.17 Nucleated RBC % 0 PT INR Sodium 128 L Potassium 5.2 H Chloride 99 Carbon Dioxide 20.0 L Anion Gap 9 BUN 85 H Creatinine 2.44 H Estim Creat Clear Calc 17.29 Est GFR (MDRD) Af Amer 24 L Est GFR (MDRD) Non-Af 20 L BUN/Creatinine Ratio 34.8 H Glucose 134 H Calcium 7.7 L POC Glucose 127 H 09/12/20 09/12/20 09/12/20 05:16 06:28 11:25 WBC RBC Hgb Hct MCV MCH MCHC RDW Std Deviation RDW Coeff of Sunitha Plt Count MPV Immature Gran % (Auto) Neut % (Auto) Lymph % (Auto) [place] % (Auto) Eos % (Auto) Baso % (Auto) Absolute Neuts (auto) Absolute Lymphs (auto) Nucleated RBC % PT 16.5 H INR 1.4 Sodium Potassium Chloride Carbon Dioxide Anion Gap BUN Creatinine Estim Creat Clear Calc Est GFR (MDRD) Af Amer Est GFR (MDRD) Non-Af BUN/Creatinine Ratio Glucose Calcium POC Glucose 148 H 180 H 09/12/20 16:44 WBC RBC Hgb Hct MCV MCH MCHC RDW Std Deviation RDW Coeff of Sunitha Plt Count MPV Immature Gran % (Auto) Neut % (Auto) Lymph % (Auto) [place] % (Auto) Eos % (Auto) Baso % (Auto) Absolute Neuts (auto) Absolute Lymphs (auto) Nucleated RBC % PT INR Sodium Potassium Chloride Carbon Dioxide Anion Gap BUN Creatinine Estim Creat Clear Calc Est GFR (MDRD) Af Amer Est GFR (MDRD) Non-Af BUN/Creatinine Ratio Glucose Calcium POC Glucose 190 H Physical Exam Const Constitutional Narrative: Alert and oriented x3. No apparent distress. The patient is slow to answer questions but her answers are appropriate. Eyes Eyes Narrative: Pupil equal round and reactive to light and accommodation. Neck Neck Narrative: Neck is supple. Resp Resp Narrative: Clear to auscultation anteriorly. Cardio Cardio Narrative: Normal S1, S2 no rubs or murmurs. GI GI Narrative: Normal bowel sounds. Abdomen is soft, nontender to palpation. No guarding or rebound. No mass palpable. Extremity Extremity Narrative: No clubbing or cyanosis. There is a 1+ edema of the lower extremities bilaterally. Neuro Neuro Narrative: No focal neurologic deficit. The patient has resting tremor especially of the lower extremities. Assessment & Plan Assessment/Plan (1) LISSET (acute kidney injury): PLAN: LISSET is likely due to volume depletion. Serum creatinine was 3.3 mg/dL on presentation (09/08/2020). Urine sodium was less than 20 mmol/L. This is consistent with LISSET due to volume depletion related to diarrhea and poor oral intake. Renal function is already improving with IV fluid.. (2) Chronic kidney disease, stage 3b: PLAN: The patient has stage IIIb CKD with baseline serum creatinine of around 1.3 to 1.6 mg/dL. CKD is possibly due to diabetic kidney disease. (3) Hyponatremia: PLAN: Hyponatremia appears to be chronic. Serum sodium was 134 in April of this year. However, there is an acute exacerbation of hyponatremia. She presented with serum sodium concentration of 123 mmol/L. Sodium level is better today at 128 mmol/L. Acute hyponatremia is likely due to volume depletion as well. Urine sodium was less than 20. dc fluids dw Dr Nicole. (4) Hyperkalemia: PLAN: better (5) Diarrhea: QUALIFIERS: Diarrhea type: unspecified type Qualified Code(s): R19.7 - Diarrhea, unspecified PLAN: Subjectively improved.
[2020-09-12] MEDS: Acetaminophen 325 MG Tablet 650 MG PO (20:34)
[2020-09-12] MEDS: Lactulose 20 GM/30 ML UDC PO (21:41)
[2020-09-12] MEDS: hydrOXYzine PAM 25 MG Capsule PO (21:42)
[2020-09-12 22:10] LABS: Bedside Glucose 203 mg/dL (70-110)
[2020-09-13 03:03] VITALS: BP 119/47; PULSE 64; RESP 16; TEMP 36.6; O2SAT 93
[2020-09-13 03:59] VITALS: PULSE 69
[2020-09-13] MEDS: Levothyroxine 125 MCG Tablet PO (06:25)
[2020-09-13 06:35] LABS: Anion Gap 11 (5-15); BUN 90 mg/dL (7-18); BUN/Creat Ratio 30.9 RATIO (10-20); Calcium,Total 7.9 mg/dL (8.5-10.1); Chloride 98 mmol/L (98-107); Creatinine, Serum 2.91 mg/dL (0.55-1.02); EST Glomerular Filtration Rate 16 mL/min (>60); Est Glom Filt Rate - Afr Amer 20 mL/min (>60); Estimated Creatinine Clearance 14.49 ml/min; Free T3 1.2 pg/mL (2.18-3.98); Glucose 160 mg/dL (74-106); Potassium 5.6 mmol/L (3.5-5.1); Sodium Level 127 mmol/L (136-145)
[2020-09-13] MEDS: Aspirin E.C. 81 MG Tablet PO (07:45)
[2020-09-13] MEDS: Multivitamins,Ther W-Minerals Tablet 1 TABLET PO (07:45)
[2020-09-13] MEDS: Pantoprazole Sodium 40 MG Tablet PO (07:45)
[2020-09-13] MEDS: Loratadine 10 MG Tablet PO (07:46)
[2020-09-13] MEDS: Ezetimibe 10 MG Tablet PO (07:46)
[2020-09-13] MEDS: Lactulose 20 GM/30 ML UDC PO ×2 (07:46→20:47)
[2020-09-13] MEDS: Cholecalciferol (VIT D3) 25 MCG TABLET (1,000 UNITS) 50 MCG PO (07:46)
[2020-09-13] MEDS: Citalopram 40 MG TABLET PO (07:46)
[2020-09-13] MEDS: Enoxaparin 30 MG/0.3 ML Syringe SC (07:47)
[2020-09-13] MEDS: NYSTATIN 500,000 UNIT/5 ML UDC 500000 UNIT PO ×4 (07:52→20:47)
--- NOTE | 2020-09-13 09:45 | CASEMGMT ---
Social Work Note Pt is not medically ready for discharge today. HIRO faxed updated clinicals to Radha at [facility] and wrote on coversheet that pt is not medically ready for discharge. Darline Parks SALES AND SERVICE ASSOCIATE, OUTPATIENT SCHEDULER
[2020-09-13 09:46] VITALS: BP 115/42; PULSE 74; RESP 18; TEMP 36.7; O2SAT 94
[2020-09-13] MEDS: 0.9% Saline Lock 10 ML Syringe IV (09:49)
[2020-09-13] MEDS: Menthol/Lanolin/Calamine/Znox 113 GM Tube 1 APPLIC TOPICAL ×3 (09:49→20:47)
[2020-09-13 09:57] VITALS: PULSE 74
[2020-09-13] MEDS: 0.9% Normal Saline 1,000 ML 100 ML IV ×2 (09:57→19:30)
[2020-09-13] MEDS: Metoprolol(XL)Succ 50 MG Tablet PO (09:57)
[2020-09-13] MEDS: Insulin Lispro 100 UNIT/ML INSULN.PEN SC ×3 (11:17→21:05)
[2020-09-13 11:35] LABS: Bedside Glucose 194 mg/dL (70-110)
--- NOTE | 2020-09-13 11:43 | PN.HOSP_ITS ---
Subjective Subjective Still not eating. Mouth is feeling better. Objective Data Objective Data Vital Signs: Vital Signs Temp Pulse Resp BP Pulse Ox 36.7 C 74 18 115/42 L 94 09/13/20 09:46 09/13/20 09:57 09/13/20 09:46 09/13/20 09:46 09/13/20 09:46 Oxygen Delivery Method Nasal Cannula Weight: 75.841 kg Body Mass Index (BMI) 26.2 Intake & Output: Intake and Output for Last 24 Hours 09/11/20 09/12/20 09/13/20 23:59 23:59 23:59 Intake Total 2317.5 / 2317.5 1163.33 / 1163.33 100 / 100 Output Total 180 / 180 115 / 115 75 / 75 Balance 2137.5 / 2137.5 1048.33 / 1048.33 Lab / Micro Data Result Diagrams: 09/12/20 05:16 09/13/20 05:26 Labs: Laboratory Results - last 24 hr 09/12/20 09/12/20 09/12/20 11:25 16:44 21:45 Sodium Potassium Chloride Carbon Dioxide Anion Gap BUN Creatinine Estim Creat Clear Calc Est GFR (MDRD) Af Amer Est GFR (MDRD) Non-Af BUN/Creatinine Ratio Glucose Calcium Free T4 Free T3 pg/dL POC Glucose 180 H 190 H 203 H 09/13/20 09/13/20 05:26 11:16 Sodium 127 L Potassium 5.6 H Chloride 98 Carbon Dioxide 18.0 L Anion Gap 11 BUN 90 H Creatinine 2.91 H Estim Creat Clear Calc 14.49 Est GFR (MDRD) Af Amer 20 L Est GFR (MDRD) Non-Af 16 L BUN/Creatinine Ratio 30.9 H Glucose 160 H Calcium 7.9 L Free T4 2.10 H Free T3 pg/dL 1.2 L POC Glucose 194 H Physical Exam Const alert Neck no lymphadenopathy Resp normal respiratory effort and clear to auscultation bilaterally Cardio regular rate, regular rhythm, S1 normal heart sound and S2 normal heart sound GI non-tender GI Narrative: distended. Neuro Sensorium / Orientation: awake Assessment & Plan Assessment/Plan (1) LISSET (acute kidney injury): (2) Hyponatremia: PLAN: 1. LISSET * worsening * FEUrea 12.35% 2/2 prerenal * resume IVF 2. Hyponatremia * improved, but ongoing * d/t volume depletion * monitor * Cortisol normal * TSH 0.17, FT4 sligtly elevated 2.1, cut back levothyroxine to 100 from 125 3. Hyperkalemia * worse * 2/2 LISSET 4. Cirrhosis * 2/2 NALD * MELD 26, mortality risk 19.6% * Child-Loyd 9, grade B * Hold off on paracentesis at this time * diuretics on hold given LISSET 5. DM2 * fair control * poor appetite, so pt has not been receiving scheduled insulin 6. Depression * complicating long-term recovery * on citalopram * advised to follow up with counseling for better coping skills * pt denies suicidal ideation. * enhanced by caring for her demented . 6. VTE prophylaxis: LMWH 7. Thrush: Nystatin Advanced care planning: * Spent an additional 60 minutes discussing with the patient about goals of care. Explained the patient her overall poor prognosis given her multitude of severe medical issues. Addressed aggressive medical measures versus comfort measures. Patient states that she wants to live. Therefore she wants to continue with medical treatment and is not ready for hospice at this time. I did encourage her to eat as that will further assist in her improving her overall medical care. I did express concern that despite that her overall pr ognosis is still going to be poor. Visit Charges Inpatient E&M: 53022 Subs Hosp L2 Procedures Hospitalists Procedures: [id number] Advncd Care Plan 30 Min
--- NOTE | 2020-09-13 14:36 | CHAPLAIN ---
Type of Pastoral Visit ___ Initial Visit _x__ Follow-up Visit ___ On-call Visit ___ General Patient Visit ___ Spiritual Assessment ___ Family Conference ___ Bereavement ___ Rapid Response ___ Code Blue ___ Other (describe below) Pastoral Care Referral From _x__ Patient _x__ Family ___ Nurse ___ Physician ___ Campaign Coordinator ___ Pipe Covering Molder ___ Other (describe below) Sacrament/Intervention _x__ Active listening ___ Anointing ___ Jehovah'S Witness ___ Bereavement ___ Communion _x__ Isa exploration ___ ___ Life review _x__ Prayer ___ Reconciliation ___ Sacrament of Sick _x__ Supportive presence ___ Wedding ___ Other (describe below) Pastoral Comments patient is sitting in chair with eyes closed; pt opens eyes and responds to this apprentice cook in weak voice; pt says she did not eat lunch and is not interested in eating; pt says she is not sure what will be next for her and has no concerns; when asked about possibility of , pt says that she knows that is possible and that she has no worries for herself; pt only concern to her at this point is for her who has dementia; pt welcomes prayer support; pt states that apprentice cook may contact her son if desired;
[2020-09-13] MEDS: Acetaminophen 325 MG Tablet 650 MG PO (14:38)
[2020-09-13 15:01] VITALS: BP 110/40; PULSE 60; RESP 20; TEMP 37.1; O2SAT 94
--- NOTE | 2020-09-13 16:17 | PCM.PN.REN ---
Subjective Subjective no new events. looks about the same Objective Data Objective Data Vital Signs: Vital Signs Temp Pulse Resp BP Pulse Ox 98.7 F 60 20 H 110/40 L 94 09/13/20 15:01 09/13/20 15:01 09/13/20 15:01 09/13/20 15:01 09/13/20 15:01 Oxygen Delivery Method Room Air Weight: 75.841 kg Body Mass Index (BMI) 26.2 Intake & Output: Intake and Output for Last 24 Hours 09/11/20 09/12/20 09/13/20 23:59 23:59 23:59 Intake Total 2317.5 / 2317.5 1163.33 / 1163.33 140 / 140 Output Total 180 / 180 115 / 115 100 / 100 Balance 2137.5 / 2137.5 1048.33 / 1048.33 40 / 40 Lab / Micro Data Result Diagrams: 09/12/20 05:16 09/13/20 05:26 Labs: Laboratory Results - last 24 hr 09/12/20 09/12/20 09/13/20 16:44 21:45 05:26 Sodium 127 L Potassium 5.6 H Chloride 98 Carbon Dioxide 18.0 L Anion Gap 11 BUN 90 H Creatinine 2.91 H Estim Creat Clear Calc 14.49 Est GFR (MDRD) Af Amer 20 L Est GFR (MDRD) Non-Af 16 L BUN/Creatinine Ratio 30.9 H Glucose 160 H Calcium 7.9 L Free T4 2.10 H Free T3 pg/dL 1.2 L POC Glucose 190 H 203 H 09/13/20 11:16 Sodium Potassium Chloride Carbon Dioxide Anion Gap BUN Creatinine Estim Creat Clear Calc Est GFR (MDRD) Af Amer Est GFR (MDRD) Non-Af BUN/Creatinine Ratio Glucose Calcium Free T4 Free T3 pg/dL POC Glucose 194 H Physical Exam Const Constitutional Narrative: Alert and oriented x3. No apparent distress. The patient is slow to answer questions but her answers are appropriate. Eyes Eyes Narrative: Pupil equal round and reactive to light and accommodation. Neck Neck Narrative: Neck is supple. Resp Resp Narrative: Clear to auscultation anteriorly. Cardio Cardio Narrative: Normal S1, S2 no rubs or murmurs. GI GI Narrative: Normal bowel sounds. Abdomen is soft, nontender to palpation. No guarding or rebound. No mass palpable. Extremity Extremity Narrative: No clubbing or cyanosis. There is a 1+ edema of the lower extremities bilaterally. Neuro Neuro Narrative: No focal neurologic deficit. The patient has resting tremor especially of the lower extremities. Assessment & Plan Assessment/Plan (1) LISSET (acute kidney injury): PLAN: LISSET is likely due to volume depletion. Serum creatinine was 3.3 mg/dL on presentation (09/08/2020). Urine sodium was less than 20 mmol/L. This is consistent with LISSET due to volume depletion related to diarrhea and poor oral intake. dw Dr Nicole. looks about the same. not sure how much progress she can make. Dr Nicole did talk about hospice but she was not ready. ok for fluids today (2) Chronic kidney disease, stage 3b: PLAN: The patient has stage IIIb CKD with baseline serum creatinine of around 1.3 to 1.6 mg/dL. CKD is possibly due to diabetic kidney disease. (3) Hyponatremia: PLAN: Hyponatremia appears to be chronic. Serum sodium was 134 in April of this year. However, there is an acute exacerbation of hyponatremia. She presented with serum sodium concentration of 123 mmol/L. Sodium level is better today at 127 mmol/L. Acute hyponatremia is likely due to volume depletion as well. Urine sodium was less than 20. . (4) Hyperkalemia: PLAN: better (5) Diarrhea: QUALIFIERS: Diarrhea type: unspecified type Qualified Code(s): R19.7 - Diarrhea, unspecified PLAN: Subjectively improved.
[2020-09-13 16:46] LABS: Bedside Glucose 186 mg/dL (70-110)
[2020-09-13] MEDS: Insulin Human 75/25 Kwickpen 5 UNIT SC (17:04)
[2020-09-13] MEDS: hydrOXYzine PAM 25 MG Capsule PO (20:47)
[2020-09-13 21:12] VITALS: BP 104/40; PULSE 71; RESP 16; TEMP 36.6; O2SAT 94
[2020-09-13 21:51] LABS: Bedside Glucose 173 mg/dL (70-110)
[2020-09-13] MEDS: Nystatin Powder 15gm Bottle 1 APPLIC TOPICAL (23:33)
[2020-09-14] VITALS (8 sets, daily range): BP systolic 109–134; BP diastolic 48–59; PULSE 46–63; RESP 16–18; TEMP 36.4–36.6; O2SAT 93–95
[2020-09-14] MEDS: 0.9% Normal Saline 1,000 ML 100 ML IV ×2 (04:52→13:44)
[2020-09-14] MEDS: Levothyroxine 100 MCG Tablet PO (04:53)
[2020-09-14 05:38] LABS: Absolute Lymphocyte Count 1.77 X10^3/uL (0.83-4.51); Absolute Neutrophil Count 6.1 X10^3/uL (2.0-7.7); Basophil# 0.04 X10^3/uL; Basophil% 0.4 % (0-1); Eosinophil# 0.22 X10^3/uL; Eosinophils% 2.3 % (0-5); Hematocrit 36.2 % (37-47); Hemoglobin 11.7 g/dL (12.0-15.0); Lymphocyte # 1.77 X10^3/ul (0.83-4.51); Lymphocyte % 18.8 % (19-41); Mean Corp Hgb Conc 32.3 g/dL (32-36); Mean Corpuscular Hgb 28.7 pg (27.0-32.0); Mean Corpuscular Volume 88.9 fL (81-99); Mean Platelet Vol. 10.3 fl (6.2-12.0); Monocyte# 1.22 X10^3/uL; Monocyte% 12.9 % (0-10); NRBC Flagged by Analyzer 0 % (0-5); Neutrophil # 6.12 X10^3/uL (2.7-7.7); Neutrophil % 64.9 % (47-70); Platelet Count 250 K/mm3 (150-450); RBC Distribution Width CV 16.5 % (11.6-14.6); RBC Distribution Width SD 53.5 fl (35.1-43.9); Red Blood Count 4.07 M/mm3 (4.2-5.4); White Blood Count 9.4 K/mm3 (4.4-11.0)
[2020-09-14 05:51] LABS: Anion Gap 9 (5-15); BUN 91 mg/dL (7-18); Chloride 102 mmol/L (98-107); Creatinine, Serum 3.14 mg/dL (0.55-1.02); EST Glomerular Filtration Rate 15 mL/min (>60); Est Glom Filt Rate - Afr Amer 18 mL/min (>60); Estimated Creatinine Clearance 13.43 ml/min; Glucose 143 mg/dL (74-106); Potassium 4.7 mmol/L (3.5-5.1); Sodium Level 131 mmol/L (136-145)
--- NOTE | 2020-09-14 08:42 | NURSING ---
spoke bennett Washburn LPN at hospice regrading pt agreeable to speak with them at this time per Dr. Nicole
--- NOTE | 2020-09-14 09:46 | CASEMGMT ---
Addendum entered by Darline Parks 09/14/20 10:45: RN updated this worker that pt's son Bashir is on the phone and had questions regarding Hospice. SW spoke with Bashir. Bashir asked if it would be possible for pt to return to [facility] with Hospice. SW informed Bashir that Hospice will evaluate pt and make recommendations on what they feel is most appropriate. SW briefly explained options of returning to [facility] with Hospice vs Inpatient Hospice unit but again reiterated that Hospice will evaluate pt and then make recommendations and Hospice will have more information on their services. Bashir states that if pt is able to SWCC with Hospice, her who is in [facility] will be able to continue to see her. SW informed Bashir that this worker will call [facility] and give them an update on Bashir's preference to give them a heads up. Bashir states understanding. Bashir states that Wu from [facility] did call him and emailed him the Hospice paperwork. Bashir states he is the POA and will be reaching out to additional family members regarding pt. HCPOA is on pt's chart and Bashir is listed as HCPOA. Hospice to meet with pt today. SW to continue to follow. Addendum entered by Darline Parks 09/14/20 10:06: Wu with [facility] did state that he was going to call pt's son Bashir regarding Hospice referral as well. Original Note: Social Work Note SW updated that pt is agreeable to speaking with Hospice and Hopsice referral has been made. HIRO then received a call from Wu at [facility] stating he never received clinicals for pt. HIRO faxed clinicals to [facility]. Darline Parks HR ADMINISTRATOR, CIGAR HEAD PEGGER
[2020-09-14] MEDS: NYSTATIN 500,000 UNIT/5 ML UDC 500000 UNIT PO ×4 (10:02→22:24)
[2020-09-14] MEDS: Citalopram 40 MG TABLET PO (10:03)
[2020-09-14] MEDS: Lactulose 20 GM/30 ML UDC PO ×2 (10:03→22:24)
[2020-09-14] MEDS: Aspirin E.C. 81 MG Tablet PO (10:03)
[2020-09-14] MEDS: Nystatin Powder 15gm Bottle 1 APPLIC TOPICAL ×2 (10:03→22:21)
[2020-09-14] MEDS: Cholecalciferol (VIT D3) 25 MCG TABLET (1,000 UNITS) 50 MCG PO (10:03)
[2020-09-14] MEDS: Enoxaparin 30 MG/0.3 ML Syringe SC (10:03)
[2020-09-14] MEDS: Multivitamins,Ther W-Minerals Tablet 1 TABLET PO (10:03)
[2020-09-14] MEDS: Loratadine 10 MG Tablet PO (10:03)
[2020-09-14] MEDS: Pantoprazole Sodium 40 MG Tablet PO (10:04)
[2020-09-14] MEDS: Menthol/Lanolin/Calamine/Znox 113 GM Tube 1 APPLIC TOPICAL ×2 (10:04→22:21)
[2020-09-14] MEDS: Ezetimibe 10 MG Tablet PO (10:04)
[2020-09-14] MEDS: Acetaminophen 325 MG Tablet 650 MG PO (10:13)
[2020-09-14] MEDS: Insulin Lispro 100 UNIT/ML INSULN.PEN SC (11:22)
--- NOTE | 2020-09-14 11:35 | PN.HOSP_ITS ---
Subjective Subjective Eating scant amount of food. Crackles noted by RN. Objective Data Objective Data Vital Signs: Vital Signs Temp Pulse Resp BP Pulse Ox 36.5 C L 46 L 16 109/48 L 93 09/14/20 10:10 09/14/20 10:10 09/14/20 10:10 09/14/20 10:10 09/14/20 10:10 Oxygen Delivery Method Room Air Weight: 75.841 kg Body Mass Index (BMI) 26.2 Intake & Output: Intake and Output for Last 24 Hours 09/12/20 09/13/20 09/14/20 23:59 23:59 23:59 Intake Total 1163.33 / 1163.33 1155 / 1155 976.67 / 976.67 Output Total 115 / 115 150 / 150 140 / 140 Balance 1048.33 / 1048.33 1005 / 1005 836.67 / 836.67 Lab / Micro Data Attestation: I reviewed the patient's lab results. Result Diagrams: 09/14/20 05:31 09/14/20 05:31 Labs: Laboratory Results - last 24 hr 09/13/20 09/13/20 09/13/20 11:16 16:35 21:04 WBC RBC Hgb Hct MCV MCH MCHC RDW Std Deviation RDW Coeff of Sunitha Plt Count MPV Immature Gran % (Auto) Neut % (Auto) Lymph % (Auto) [place] % (Auto) Eos % (Auto) Baso % (Auto) Absolute Neuts (auto) Absolute Lymphs (auto) Nucleated RBC % Sodium Potassium Chloride Carbon Dioxide Anion Gap BUN Creatinine Estim Creat Clear Calc Est GFR (MDRD) Af Amer Est GFR (MDRD) Non-Af BUN/Creatinine Ratio Glucose Calcium POC Glucose 194 H 186 H 173 H 09/14/20 09/14/20 05:31 05:31 WBC 9.4 RBC 4.07 L Hgb 11.7 L Hct 36.2 L MCV 88.9 MCH 28.7 MCHC 32.3 RDW Std Deviation 53.5 H RDW Coeff of Sunitha 16.5 H Plt Count 250 MPV 10.3 Immature Gran % (Auto) 0.700 Neut % (Auto) 64.9 Lymph % (Auto) 18.8 L [place] % (Auto) 12.9 H Eos % (Auto) 2.3 Baso % (Auto) 0.4 Absolute Neuts (auto) 6.1 Absolute Lymphs (auto) 1.77 Nucleated RBC % 0 Sodium 131 L Potassium 4.7 Chloride 102 Carbon Dioxide 20.0 L Anion Gap 9 BUN 91 H Creatinine 3.14 H Estim Creat Clear Calc 13.43 Est GFR (MDRD) Af Amer 18 L Est GFR (MDRD) Non-Af 15 L BUN/Creatinine Ratio 29.0 H Glucose 143 H Calcium 8.0 L POC Glucose Physical Exam Const alert Constitutional Narrative: flat affect HEENT dentition normal Head and Scalp: normocephalic Resp normal respiratory effort Resp Narrative: coarse breath sounds bilaterally. Cardio regular rate, regular rhythm, S1 normal heart sound and S2 normal heart sound GI normal to inspection, nondistended, normoactive bowel sounds, non-tender and non -distended Psych affect normal Assessment & Plan Assessment/Plan (1) LISSET (acute kidney injury): (2) Hyponatremia: PLAN: She is okay with discussing with hospice again.1. LISSET * worsening despite IVF * FEUrea 12.35% 2/2 prerenal * resume IVF 2. Hyponatremia * improved, but ongoing * d/t volume depletion * monitor * Cortisol normal * TSH 0.17, FT4 sligtly elevated 2.1, cut back levothyroxine to 100 from 125 3. Hyperkalemia * worse * 2/2 LISSET 4. Cirrhosis * 2/2 NALD * MELD 26, mortality risk 19.6% * Child-Loyd 9, grade B * Hold off on paracentesis at this time * diuretics on hold given LISSET 5. DM2 * fair control * poor appetite, so pt has not been receiving scheduled insulin 6. Depression * complicating long-term recovery * on citalopram * advised to follow up with counseling for better coping skills * pt denies suicidal ideation. 6. VTE prophylaxis: LMWH 7. Thrush: Nystatin Advanced care planning: * Spent an additional 20 minutes discussing with the patient about goals of care. Explained that despite medical treatment that she is to continue to get worse. Anticipate her continue to get worse despite this. Again recommended hospice with her. Patient is unsure at this time what she wants to do but did express understanding Visit Charges Inpatient E&M: 39325 Subs Hosp L2 Procedures Hospitalists Procedures: [id number] Advncd Care Plan 30 Min
[2020-09-14 11:40] LABS: Bedside Glucose 162 mg/dL (70-110)
--- NOTE | 2020-09-14 13:54 | PN.RENAL_ITS ---
Subjective Subjective somewhat somnolent. breathing appears ok. Objective Data Objective Data Vital Signs: Vital Signs Temp Pulse Resp BP Pulse Ox 97.7 F L 46 L 16 109/48 L 93 09/14/20 10:10 09/14/20 10:10 09/14/20 12:06 09/14/20 10:10 09/14/20 10:10 Oxygen Delivery Method Room Air Weight: 75.841 kg Body Mass Index (BMI) 26.2 Intake & Output: Intake and Output for Last 24 Hours 09/12/20 09/13/20 09/14/20 23:59 23:59 23:59 Intake Total 1163.33 / 1163.33 1155 / 1155 1863.34 / 1863.34 Output Total 115 / 115 150 / 150 140 / 140 Balance 1048.33 / 1048.33 1005 / 1005 1723.34 / 1723.34 Lab / Micro Data Result Diagrams: 09/14/20 05:31 09/14/20 05:31 Labs: Laboratory Results - last 24 hr 09/13/20 09/13/20 09/14/20 16:35 21:04 05:31 WBC 9.4 RBC 4.07 L Hgb 11.7 L Hct 36.2 L MCV 88.9 MCH 28.7 MCHC 32.3 RDW Std Deviation 53.5 H RDW Coeff of Sunitha 16.5 H Plt Count 250 MPV 10.3 Immature Gran % (Auto) 0.700 Neut % (Auto) 64.9 Lymph % (Auto) 18.8 L [place] % (Auto) 12.9 H Eos % (Auto) 2.3 Baso % (Auto) 0.4 Absolute Neuts (auto) 6.1 Absolute Lymphs (auto) 1.77 Nucleated RBC % 0 Sodium Potassium Chloride Carbon Dioxide Anion Gap BUN Creatinine Estim Creat Clear Calc Est GFR (MDRD) Af Amer Est GFR (MDRD) Non-Af BUN/Creatinine Ratio Glucose Calcium POC Glucose 186 H 173 H 09/14/20 09/14/20 05:31 11:21 WBC RBC Hgb Hct MCV MCH MCHC RDW Std Deviation RDW Coeff of Sunitha Plt Count MPV Immature Gran % (Auto) Neut % (Auto) Lymph % (Auto) [place] % (Auto) Eos % (Auto) Baso % (Auto) Absolute Neuts (auto) Absolute Lymphs (auto) Nucleated RBC % Sodium 131 L Potassium 4.7 Chloride 102 Carbon Dioxide 20.0 L Anion Gap 9 BUN 91 H Creatinine 3.14 H Estim Creat Clear Calc 13.43 Est GFR (MDRD) Af Amer 18 L Est GFR (MDRD) Non-Af 15 L BUN/Creatinine Ratio 29.0 H Glucose 143 H Calcium 8.0 L POC Glucose 162 H Physical Exam Narrative Alert awake oriented x 3 no obvious distress no pallor no icterus no JVD s1s2 no murmurs lungs clear abdomen soft no organomegaly ++ edema no cyanosis Assessment & Plan Assessment/Plan (1) LISSET (acute kidney injury): PLAN: LISSET is likely due to volume depletion. Urine sodium was less than 20 mmol/L. This is consistent with LISSET due to volume depletion related to diarrhea and poor oral intake. sodium is better with fluids but Cr still high. BUN almost 100. dw Dr Nicole. poor candidate for dialysis in setting of liver disease. hospice is on consult now (2) Chronic kidney disease, stage 3b: PLAN: The patient has stage IIIb CKD with baseline serum creatinine of around 1.3 to 1.6 mg/dL. CKD is possibly due to diabetic kidney disease. (3) Hyponatremia: PLAN: Hyponatremia appears to be chronic. Serum sodium was 134 in April of this year. However, there is an acute exacerbation of hyponatremia. She presented with serum sodium concentration of 123 mmol/L. Sodium level is better today at 129 . (4) Hyperkalemia: PLAN: better (5) Diarrhea: QUALIFIERS: Diarrhea type: unspecified type Qualified Code(s): R19.7 - Diarrhea, unspecified PLAN: Subjectively improved.
--- NOTE | 2020-09-14 14:41 | NURSING ---
per Chata in ultrasound- pleurex catheters are placed via surgeons not via interventional radiology
--- NOTE | 2020-09-14 14:57 | CASEMGMT ---
Social Work Note HIRO spoke with RN who spoke with Wu at [facility]. Plan is for pt to admit to [facility] tomorrow with Hospice, Hospice will be calling pt's son to get papers signed. HIRO placed a call to Radha at [facility] and updated her on plan for pt to return to [facility] tomorrow with Hospice. Radha states understanding. HIRO placed a call to pt's son Bashir. Bashir confirms plan is for pt to discharge to [facility] tomorrow with Hospice. Bashir states he will be having a Zoom chat tonight to confirm that is the plan but Bashir is sure it will be. Bashir states Hospice mentioned having pt get a tube placed so it can drain instead of having pt go to Paracentesis. Bashir asked if that will be done while pt is at [facility] and if it will delay pt's discharge. HIRO informed Bashir that this worker will check with RN about the tube getting placed as that is something this worker doesn't handle. Bashir states understanding. HIRO spoke with RN who states she was informed by Hospice already that pt will need tube placed and she is working on it. HIRO placed a call to pt's son Bashir and left him a message that order was placed for Tube to be placed while pt is at [facility]. Darline Parks FUNERAL PRE ARRANGEMENT COUNSELOR, TREE AND SHRUB TECHNICIAN
--- NOTE | 2020-09-14 15:09 | CHAPLAIN ---
Type of Pastoral Visit ___ Initial Visit _x__ Follow-up Visit ___ On-call Visit ___ General Patient Visit ___ Spiritual Assessment ___ Family Conference ___ Bereavement ___ Rapid Response ___ Code Blue ___ Other (describe below) Pastoral Care Referral From _x__ Patient _x__ Family ___ Nurse ___ Physician ___ Drafter Automotive Design ___ Gas Regulator Repairer ___ Other (describe below) Sacrament/Intervention ___ Active listening ___ Anointing ___ Protestant ___ Bereavement ___ Communion ___ Isa exploration ___ ___ Life review ___ Prayer ___ Reconciliation ___ Sacrament of Sick _x__ Supportive presence ___ Wedding ___ Other (describe below) Pastoral Comments
--- NOTE | 2020-09-14 18:40 | PCM.CONS.GEN ---
Assessment & Plan Assessment/Plan (1) Nonalcoholic fatty liver disease: (2) Ascites: QUALIFIERS: Ascites type: other type Qualified Code(s): R18.8 - Other ascites PLAN: Discussed with patient procedure of ultrasound-guided placement of abdominal Pleurx catheter due to uncontrolled ascites from her liver disease. Patient has had multiple paracentesis for 4 L or greater last 1 was 08/29/2020. Patient has decided to go to hospice and would like a catheter placed prior. Discussed the procedure including risk of not limited to bleeding, infection, leakage around the catheter of ascites, injury to abdominal organs, and anesthesia patient was agreeable to plan. Janice Patel M.D. Pager: [phone] [facility] [address] [place] [address], [facility], [address] [place] [address] Office: [phone] HPI Consult Data Date of Consult: 09/15/20 HPI Narrative HPI Narrative: EKATERINA ROBERTS, is a 80 F who has uncontrolled ascites due to her liver disease. Patient has been tapped for greater than 4 L several times latest one was 08/29/2020. Patient is planned on a hospice request for a Pleurx catheter placement for her abdominal ascites. Patient denies any abdominal pain, vomiting, admits to decreased diet. [facility] Medical History (Updated 09/14/20 @ 19:38 by Agus Cortes) Anxiety Ascites Asthma Atherosclerosis of coronary artery of [place] heart without angina pectoris Bilateral carotid artery stenosis Carotid artery stenosis Cirrhosis Depression Diabetes Difficulty chewing Difficulty swallowing DVT (deep venous thrombosis) Essential (primary) hypertension GERD (gastroesophageal reflux disease) Hemorrhoid History of abdominal paracentesis (08/29/20) History of stress test HTN (hypertension) Hyperlipidemia Hyperlipidemia Hypothyroidism Kidney disease Left thyroid nodule Neuropathy Nonalcoholic fatty liver disease Peripheral arterial occlusive disease TIA (transient ischemic attack) (2016) Type 2 diabetes mellitus Home Medications gabapentin 300 mg capsule 300 mg PO BID cap 10/01/17 [History Last Taken 09/08/20] lf-jqy-qziyj-calcium carb-K1 1 ea PO DAILY 12/03/17 [History Last Taken 09/08/20] dulaglutide 1.5 mg/0.5 mL subcutaneous pen injector 1.5 mg SC MO 02/04/18 [History Last Taken 09/04/20] omeprazole 40 mg capsule,delayed release 40 mg PO BID cap 09/24/18 [History Last Taken 09/08/20] aspirin 81 mg tablet,delayed release 81 mg PO DAILY 10/03/18 [History Last Taken 09/08/20] ezetimibe 10 mg tablet 10 mg PO DAILY tab 12/30/19 [History Last Taken 09/07/20] levothyroxine 125 mcg tablet 125 mcg PO DAILY tab 12/30/19 [History Last Taken 09/08/20] acetaminophen [Tylenol] 650 mg PO Q4H PRN 09/08/20 [History Last Taken 09/05/20] citalopram 40 mg PO DAILY 09/08/20 [History Last Taken 09/08/20] insulin lispro [Humalog KwikPen Insulin] See Protocol SUBCUT TIDCM 09/08/20 [History Last Taken 09/05/20] insulin lispro protamin-lispro [Humalog Mix 75-25 KwikPen] 24 unit SUBCUT BREAKFAST 09/08/20 [History Last Taken 09/08/20] insulin lispro protamin-lispro [Humalog Mix 75-25(U-100)Insuln] 5 unit SUBCUT DINNER 09/08/20 [History Last Taken 09/07/20] lactulose 20 g PO BID 09/08/20 [History Last Taken 09/08/20] magnesium oxide 400 mg PO DAILY 09/08/20 [History Last Taken 09/08/20] melatonin 5 mg PO QHS 09/08/20 [History Last Taken 09/07/20] ondansetron HCl 4 mg PO Q8H PRN 09/08/20 [History Last Taken 09/03/20] polyethylene glycol 3350 17 g PO DAILY 09/08/20 [History Last Taken 09/08/20] tramadol 50 mg PO Q8H PRN 09/08/20 [History Last Taken 09/04/20] Allergy/AdvReac Type Severity Reaction Status Date / Time codeine Allergy Unknown Unknown Verified 09/08/20 11:46 Latex, Natural Rubber Allergy skin Verified 09/08/20 16:25 irritation zolpidem [From Ambien] Allergy syncope Verified 09/08/20 11:46 adhesive tape AdvReac skin Verified 09/08/20 16:25 irritation Sulfa (Sulfonamide AdvReac unknown Verified 09/08/20 11:46 Antibiotics) Family History Father CAD (coronary artery disease) Brother CAD (coronary artery disease) Surgical History (Updated 09/14/20 @ 19:38 by Agus Cortes) H/O coronary artery bypass surgery (01/13/05) H/O partial thyroidectomy H/O right inguinal hernia repair History of appendectomy History of hysterectomy History of left heart catheterization (01/24/20) History of open reduction and internal fixation (ORIF) procedure History of tonsillectomy Hx of cholecystectomy S/P hemorrhoidectomy S/P hysterectomy Status post placement of implantable loop recorder (2016) Social History Smoking Status: Never smoker second hand exposure: No alcohol intake: never substance use type: does not use caffeine: Yes what type of physical activity do you participate in: walking frequency: 1-2 times per week seatbelt use: always ROS Constitutional Constitutional: Reports anorexia Cardiovascular Cardiovascular: Denies chest pain Respiratory/Chest Respiratory/Chest: Reports cough Gastrointestinal Gastrointestinal: Denies abdominal pain or vomiting Genitourinary Genitourinary: Reports burning urination Musculoskeletal Musculoskeletal: Reports difficulty walking Neurologic Neurologic: Denies confusion Psychiatric Psychiatric: Reports anxiety and depression Hematologic/Lymphatic Hematologic/Lymphatic: Reports easy bruising Physical Exam Const alert, oriented x3 and no apparent distress HEENT normocephalic and head/scalp atraumatic Resp normal respiratory effort Cardio regular rate GI soft to palpation; Negative for non-tender Inspection: abdominal distention Palpation: ascites; Negative for guarding Extremity no clubbing, cyanosis or edema Neuro CN's II-XII intact bilaterally Psych mental status grossly normal Lab / Micro Data Result Diagrams: 09/14/20 05:31 09/15/20 05:45 Labs: Laboratory Results - last 24 hr 09/13/20 09/14/20 09/14/20 21:04 05:31 05:31 WBC 9.4 RBC 4.07 L Hgb 11.7 L Hct 36.2 L MCV 88.9 MCH 28.7 MCHC 32.3 RDW Std Deviation 53.5 H RDW Coeff of Sunitha 16.5 H Plt Count 250 MPV 10.3 Immature Gran % (Auto) 0.700 Neut % (Auto) 64.9 Lymph % (Auto) 18.8 L [place] % (Auto) 12.9 H Eos % (Auto) 2.3 Baso % (Auto) 0.4 Absolute Neuts (auto) 6.1 Absolute Lymphs (auto) 1.77 Nucleated RBC % 0 Sodium 131 L Potassium 4.7 Chloride 102 Carbon Dioxide 20.0 L Anion Gap 9 BUN 91 H Creatinine 3.14 H Estim Creat Clear Calc 13.43 Est GFR (MDRD) Af Amer 18 L Est GFR (MDRD) Non-Af 15 L BUN/Creatinine Ratio 29.0 H Glucose 143 H Calcium 8.0 L POC Glucose 173 H 09/14/20 11:21 WBC RBC Hgb Hct MCV MCH MCHC RDW Std Deviation RDW Coeff of Sunitha Plt Count MPV Immature Gran % (Auto) Neut % (Auto) Lymph % (Auto) [place] % (Auto) Eos % (Auto) Baso % (Auto) Absolute Neuts (auto) Absolute Lymphs (auto) Nucleated RBC % Sodium Potassium Chloride Carbon Dioxide Anion Gap BUN Creatinine Estim Creat Clear Calc Est GFR (MDRD) Af Amer Est GFR (MDRD) Non-Af BUN/Creatinine Ratio Glucose Calcium POC Glucose 162 H Micro: Microbiology 09/14/20 17:45 SARS-CoV-2 Antigen (Rapid) - Final Interface Orders Procedure Criteria Type of Procedure Procedure Type: Elective Elective Risks - COVID COVID Risk Discussion: The surgeon/proceduralist and patient have discussed in detail the risk of exposure to and/or potential harm posed by the COVID-19 virus with having a surgery/procedure at this time versus the risk of delaying the surgery/procedure. It is not possible to know either the risk of delaying the surgery or procedure or chance of getting an infection with perfect accuracy, but a joint decision was made between the patient and the surgeon/proceduralist to proceed at this time with the scheduled surgery/procedure as indicated on the consent form. Charges/Coding Visit Charges Inpatient E&M: 88077 Init Hosp L3
[2020-09-14] MEDS: hydrOXYzine PAM 25 MG Capsule PO (22:25)
[2020-09-14 22:26] LABS: Bedside Glucose 187 mg/dL (70-110)
[2020-09-15] VITALS (9 sets, daily range): BP systolic 101–134; BP diastolic 37–54; PULSE 66–77; RESP 16; TEMP 35.9–36.7; O2SAT 93–96; BMI 26.2
[2020-09-15] MEDS: Levothyroxine 100 MCG Tablet PO (05:51)
[2020-09-15 06:11] LABS: Bedside Glucose 148 mg/dL (70-110)
[2020-09-15 06:56] LABS: International Normalized Ratio 1.4; Prothrombin Time (Protime)PT. 16.6 SECONDS (11.7-14.9)
[2020-09-15 07:11] LABS: ALB/GLOB Ratio 0.5 RATIO (0.9-2.4); AST(SGOT) 65 U/L (15-37); Alanine Aminotransfer ALT/SGPT 42 U/L (13-56); Albumin, Serum 1.7 g/dL (3.2-5.0); Alkaline Phosphatase 240 U/L (45-117); Anion Gap 11 (5-15); BUN 94 mg/dL (7-18); BUN/Creat Ratio 31.3 RATIO (10-20); Calcium,Total 8.1 mg/dL (8.5-10.1); Chloride 104 mmol/L (98-107); EST Glomerular Filtration Rate 16 mL/min (>60); Est Glom Filt Rate - Afr Amer 19 mL/min (>60); Estimated Creatinine Clearance 14.06 ml/min; Globulin 3.5 g/dL (2.2-4.2); Glucose 147 mg/dL (74-106); Magnesium 2.7 mg/dL (1.6-2.6); Phosphorus 4.5 mg/dL (2.5-4.9); Potassium 4.8 mmol/L (3.5-5.1); Protein, Total 5.2 g/dL (6.4-8.2); Sodium Level 132 mmol/L (136-145)
[2020-09-15 07:56] LABS: Hemoglobin A1c 6.6 % (3.8-5.6)
[2020-09-15] MEDS: 0.9% Saline Lock 10 ML Syringe IV (09:17)
[2020-09-15] MEDS: Lactated Ringers 1,000 ML 100 ML IV (09:19)
--- NOTE | 2020-09-15 09:20 | CASEMGMT ---
Social Work Note HIRO placed a call to [facility] and spoke with Gilson in admissions. Gilson states they have a pre-admit meeting with the family today at 11:00am and once the meeting is over and papers are signed, Gilson will call this worker. Gilson states she will need discharge paperwork and medication list sent to Hospice and transportation will need to be arranged for pt to discharge to [facility]. HIRO updated Gilson that pt is getting plurex catheter placed now and plan is for pt to be discharged after catheter is placed. SW to continue to follow. Darline Parks OPERATIONAL TEST MECHANIC, GUEST EXPERIENCE MANAGER
[2020-09-15] MEDS: Cefazolin 2 GM in 0.9% Normal Saline 100 ML IV (09:29)
[2020-09-15] MEDS: Bupivacaine Mpf 0.5% 30 ML VIAL (09:44)
--- NOTE | 2020-09-15 10:10 | OP.PCM_ITS ---
Report of Operation Date of Procedure: 09/15/20 Pre-Operative Diagnosis: Gray, abdominal ascites Post-Operative Diagnosis: Same Surgery/Procedure Performed:: Placement of intra-abdominal Pleurx catheter with ultrasound guidance Surgeon: Janice Patel nanofabrication specialist: None Type of Anesthesia: Local MAC Anesthesiologist: Kevin Sánchez Special Medications: Ancef 2 g IV x1 Specimen's removed: None Drains: 7900 cc straw-colored fluid Estimated Blood Loss (mL): Minimal Fluids Replaced: Per anesthesia Description of Procedure: Informed consent was obtained. Patient was placed prone on the operating table. MAC anesthesia was induced. The left abdomen was prepped draped in usual sterile fashion after ultrasound sure there was adequate intra-abdominal fluid in that location. Using ultrasound guidance local anesthesia of 0.5% bupivacaine and 1% lidocaine was used at the site of the planned entry in the left lower abdomen and also along the planned tract. Needle was used to enter the abdominal cavity fluid was aspirated, guidewire was placed into the pleural space confirmed with ultrasound and incision was made at that site with a 11 blade scalpel. An additional incision was made with 11 blade scalpel more superior and slightly lateral to the original incision. The Pleurx catheter was tunneled from the more anterior to the more posterior incision. The dilator x2 was used over the guidewire. The guidewire was removed after the introducer was placed. The catheter was threaded through the introducer and the sheath was peeled away. A total of about 7900 cc of straw-colored liquid was removed then cap was applied to the catheter. The inferior left lower quadrant incision was sutured with 4-0 Vicryl and closed with Steri-Strips. 3-0 nylon suture was used to secure the end of the catheter at the anterior incision. 4 x 4 dressings and OpSite were placed. Patient tolerated procedure well. Grafts/Implants Used: Pleurx catheter lot #[id number] expiration date is 04/20/2021 Complications none
[2020-09-15] MEDS: Menthol/Lanolin/Calamine/Znox 113 GM Tube 1 APPLIC TOPICAL (11:32)
[2020-09-15] MEDS: Citalopram 40 MG TABLET PO (11:33)
[2020-09-15] MEDS: Nystatin Powder 15gm Bottle 1 APPLIC TOPICAL (11:33)
[2020-09-15] MEDS: NYSTATIN 500,000 UNIT/5 ML UDC 500000 UNIT PO (11:34)
--- NOTE | 2020-09-15 11:41 | PCM.TXEXTCAR ---
Diet 09/15/20 00:01 Diet: regular diet Wound(s) LEFT BUTTOCKS: Wound Type: Pressure Injury Dressing Change: Mepilex right inner thigh: Wound Type: small open blister left abdominal: Wound Type: Surgical Incision Therapies Weight Bearing: Full weight bearing Problem/Diagnosis (1) Nonalcoholic fatty liver disease: Status: Chronic (2) Ascites: Status: Acute Allergies/Procedures Done in Hospital Allergies codeine Allergy (Unknown, Verified 09/08/20 11:46) Unknown Latex, Natural Rubber Allergy (Verified 09/08/20 16:25) skin irritation zolpidem [From Ambien] Allergy (Verified 09/08/20 11:46) syncope adhesive tape Adverse Reaction (Verified 09/08/20 16:25) skin irritation Sulfa (Sulfonamide Antibiotics) Adverse Reaction (Verified 09/08/20 11:46) unknown Procedures: - (intra-abdominal Pleur-x catheter placement) Type of Care/Length of Stay Estimated LOS: More Than 30 Days Type of Care Needed: Intermediate Rehab Potential: Fair Prognosis: Fair Additional Orders/Day of Discharge Day of Discharge: 09/15/20 Dietary and Speech Recommendations Dietitian Recommendations/Changes: May benefit from appetite stimulant to improve PO intake at meals. Will continue liberal Regular BRIANNA mech soft (minced/moist) diet, ONS w/ medpass, and magic cup ONS w/ lunch and dinner for increased nutrition if consumed. Will check new wt. Discharge Plan Admission Admit Date/Time: 09/08/20 14:45 Attending Provider: Orion Nicole Primary Care Provider: Hailee Lees Consulting Providers: Chantelle Damon ; Janice Patel Instructions Patient Instructions: ED Chest Pain, Noncardiac Discharge Orders/Prescriptions Prescriptions: New morphine 20 mg/5 mL (4 mg/mL) solution 10 mg PO Q4H PRN (Reason: pain, shortness of breath) 3 Days Qty: 100 RF: 0 lorazepam [Lorazepam Intensol] 2 mg/mL concentrate 1 mg PO Q6H PRN (Reason: anxiety) 3 Days Qty: 30 RF: 0 Continued citalopram 40 mg tablet 40 mg PO DAILY RF: 0 ondansetron HCl 4 mg Tablet 4 mg PO Q8H PRN (Reason: Nausea) RF: 0 melatonin 5 mg Tablet 5 mg PO QHS RF: 0 Discontinued gabapentin 300 mg capsule 300 mg PO BID RF: 0 omeprazole 40 mg capsule,delayed release(DR/EC) 40 mg PO BID RF: 0 Trulicity 1.5 mg/0.5 mL pen injector 1.5 mg SC MO RF: 0 levothyroxine 125 mcg tablet 125 mcg PO DAILY RF: 0 ezetimibe 10 mg tablet 10 mg PO DAILY RF: 0 lactulose 10 gram/15 mL Solution 20 g PO BID RF: 0 acetaminophen [Tylenol] 325 mg Tablet 650 mg PO Q4H PRN (Reason: Pain) RF: 0 polyethylene glycol 3350 17 gram/dose Powder 17 g PO DAILY RF: 0 insulin lispro [Humalog KwikPen Insulin] 100 unit/mL Insulin Pen See Protocol unit SUBCUT TIDCM RF: 0 insulin lispro protamin-lispro [Humalog Mix 75-25 KwikPen] 100 unit/mL (75-25) Insulin Pen 24 unit SUBCUT BREAKFAST RF: 0 insulin lispro protamin-lispro [Humalog Mix 75-25(U-100)Insuln] 100 unit/mL (75-25) Insulin Pen 5 unit SUBCUT DINNER RF: 0 magnesium oxide 400 mg magnesium Tablet 400 mg PO DAILY RF: 0 tramadol 50 MG tablet 50 mg PO Q8H PRN (Reason: Pain) RF: 0 aspirin [Adult Aspirin Regimen] 81 mg tablet,delayed release (DR/EC) 81 mg PO DAILY RF: 0 No Action oa-yvz-fzqfk-calcium carb-K1 1 EACH tablet 1 ea PO DAILY RF: 0 Referrals / Follow Up: Hailee Lees DO [Primary Care Provider] - Disposition Disposition (needs filled in before D/C Order can be placed): NonSkilled NH/Intermed Care
--- NOTE | 2020-09-15 12:32 | DS.PCM_ITS ---
Providers Date of Admission: 09/08/20 Primary Care Physician: Dr. Hailee Lees, DO Consultations 09/08/20 19:20 Consult: Onc/Wound/corporate associate attorney Routine Comment: Reason for Consult:: pressure ulcer to left buttocks/ top of labia and kavitha labia Comments:: reddness and bleeding - like a split 09/09/20 09:38 Consult: Nephrology Routine Consulting Provider: Chantelle Damon Reason for Consult: RENAL FAILURE EMERGENT Consult: No MD Notified: Yes Date Notified:: 09/09/20 Time Notified: 09:38 Method of Notification: Answering Service 09/14/20 14:43 Consult: General Surgery Routine Consulting Provider: Janice Patel Reason for Consult: abdominal pleurex catheter placement please for comfort measures EMERGENT Consult: No MD Notified: Yes Date Notified:: 09/14/20 Time Notified: 14:43 Method of Notification: Verbal Comments:: pt to be discharged 09/15 to f with hospice services 09/14/20 14:49 Consult: General Surgery Routine Consulting Provider: Janice Patel Reason for Consult: pleurx catheter for abdominal ascites EMERGENT Consult: No MD Notified: Yes Date Notified:: 09/14/20 Time Notified: 14:49 Method of Notification: Verbal Reason For Visit: HYPONATREMIA, ARF Diagnosis Discharge Diagnosis (1) Nonalcoholic fatty liver disease: Status: Chronic Code(s): K76.0 - Fatty (change of) liver, not elsewhere classified (2) Ascites: Status: Acute Code(s): R18.8 - Other ascites Qualifiers: Ascites type: other type Qualified Code(s): R18.8 - Other ascites Medications at Discharge Home Medications [id number]-calcium carb-K1 1 ea PO DAILY 12/03/17 citalopram 40 mg PO DAILY 09/08/20 melatonin 5 mg PO QHS 09/08/20 ondansetron HCl 4 mg PO Q8H PRN 09/08/20 lorazepam [Lorazepam Intensol] 1 mg PO Q6H PRN 3 Days #30 ml 09/15/20 morphine 10 mg PO Q4H PRN 3 Days #100 ml 09/15/20 Hospital Course Operations None Procedures - (abdominal pleur-x catheter.) Summary of Care Provided Minutes Spent on Discharge: 32 Hospital Course: 80 year presents with weakness and hyponatremia. She received IVF and had some transient improvement, only to begin worsening again. Given her poor overall performance status, cirrhosis, she met with hospice twice. On the she agreed to Hospice. On the , she had a palliative abdominal pleurx catheter placed and discharged to [facility] with hospice. Prognosis poor. 1. LISEST * worsening despite IVF * FEUrea 12.35% 2/2 prerenal * resume IVF 2. Hyponatremia * improved, but ongoing * d/t volume depletion * monitor * Cortisol normal * TSH 0.17, FT4 sligtly elevated 2.1, cut back levothyroxine to 100 from 125 3. Hyperkalemia * worse * 2/2 LISSET 4. Cirrhosis * 2/2 NALD * MELD 26, mortality risk 19.6% * [employer] 9, grade B * Hold off on paracentesis at this time * diuretics on hold given LISSET 5. DM2 * fair control * poor appetite, so pt has not been receiving scheduled insulin 6. Depression * complicating long-term recovery * on citalopram * advised to follow up with counseling for better coping skills * pt denies suicidal ideation. Physical Exam Const alert Resp normal respiratory effort and clear to auscultation bilaterally Cardio regular rate, regular rhythm, S1 normal heart sound and S2 normal heart sound GI normal to inspection, nondistended, normoactive bowel sounds and non-distended ABG / Lab / Microbiology Data Attestation: I reviewed the patient's lab results. Result Diagrams: 09/14/20 05:31 09/15/20 05:45 Laboratory: Laboratory Results - last 24 hr 09/14/20 09/15/20 09/15/20 22:20 05:45 05:45 PT 16.6 H INR 1.4 APTT 40.0 H Sodium 132 L Potassium 4.8 Chloride 104 Carbon Dioxide 17.0 L Anion Gap 11 BUN 94 H Creatinine 3.00 H Estim Creat Clear Calc 14.06 Est GFR (MDRD) Af Amer 19 L Est GFR (MDRD) Non-Af 16 L BUN/Creatinine Ratio 31.3 H Glucose 147 H Hemoglobin A1c Calcium 8.1 L Phosphorus 4.5 Magnesium 2.7 H Total Bilirubin 0.70 AST 65 H ALT 42 Alkaline Phosphatase 240 H Total Protein 5.2 L Albumin 1.7 L Globulin 3.5 Albumin/Globulin Ratio 0.5 L POC Glucose 187 H 09/15/20 09/15/20 05:45 05:49 PT INR APTT Sodium Potassium Chloride Carbon Dioxide Anion Gap BUN Creatinine Estim Creat Clear Calc Est GFR (MDRD) Af Amer Est GFR (MDRD) Non-Af BUN/Creatinine Ratio Glucose Hemoglobin A1c 6.6 H Calcium Phosphorus Magnesium Total Bilirubin AST ALT Alkaline Phosphatase Total Protein Albumin Globulin Albumin/Globulin Ratio POC Glucose 148 H Microbiology: Microbiology 09/14/20 17:45 SARS-CoV-2 Antigen (Rapid) - Final Interface Orders Microbiology 09/14/20 17:45 Interface Orders SARS-CoV-2 Antigen (Rapid) - Final D/C Instructions Discharge Diet: No restrictions Meaningful Use Info Meaningful Use Diagnoses (Choose all that apply): None applicable Discharge Plan Admission Admit Date/Time: 09/08/20 14:45 Attending Provider: Orion Nicole Primary Care Provider: Hailee Lees Consulting Providers: Chantelle Damon ; Janice Patel Instructions Patient Instructions: ED Chest Pain, Noncardiac Discharge Orders/Prescriptions Prescriptions: New morphine 20 mg/5 mL (4 mg/mL) solution 10 mg PO Q4H PRN (Reason: pain, shortness of breath) 3 Days Qty: 100 RF: 0 lorazepam [Lorazepam Intensol] 2 mg/mL concentrate 1 mg PO Q6H PRN (Reason: anxiety) 3 Days Qty: 30 RF: 0 Continued citalopram 40 mg tablet 40 mg PO DAILY RF: 0 ondansetron HCl 4 mg Tablet 4 mg PO Q8H PRN (Reason: Nausea) RF: 0 melatonin 5 mg Tablet 5 mg PO QHS RF: 0 Discontinued gabapentin 300 mg capsule 300 mg PO BID RF: 0 omeprazole 40 mg capsule,delayed release(DR/EC) 40 mg PO BID RF: 0 Trulicity 1.5 mg/0.5 mL pen injector 1.5 mg SC MO RF: 0 levothyroxine 125 mcg tablet 125 mcg PO DAILY RF: 0 ezetimibe 10 mg tablet 10 mg PO DAILY RF: 0 lactulose 10 gram/15 mL Solution 20 g PO BID RF: 0 acetaminophen [Tylenol] 325 mg Tablet 650 mg PO Q4H PRN (Reason: Pain) RF: 0 polyethylene glycol 3350 17 gram/dose Powder 17 g PO DAILY RF: 0 insulin lispro [Humalog KwikPen Insulin] 100 unit/mL Insulin Pen See Protocol unit SUBCUT TIDCM RF: 0 insulin lispro protamin-lispro [Humalog Mix 75-25 KwikPen] 100 unit/mL (75-25) Insulin Pen 24 unit SUBCUT BREAKFAST RF: 0 insulin lispro protamin-lispro [Humalog Mix 75-25(U-100)Insuln] 100 unit/mL (75-25) Insulin Pen 5 unit SUBCUT DINNER RF: 0 magnesium oxide 400 mg magnesium Tablet 400 mg PO DAILY RF: 0 tramadol 50 MG tablet 50 mg PO Q8H PRN (Reason: Pain) RF: 0 aspirin [Adult Aspirin Regimen] 81 mg tablet,delayed release (DR/EC) 81 mg PO DAILY RF: 0 No Action jm-ftx-gqgsa-calcium carb-K1 1 EACH tablet 1 ea PO DAILY RF: 0 Referrals / Follow Up: Hailee Lees DO [Primary Care Provider] - Disposition Disposition (needs filled in before D/C Order can be placed): NonSkilled NH/Intermed Care Visit Charges Inpatient E&M: 69126 Disch Hosp
--- NOTE | 2020-09-15 13:51 | CASEMGMT ---
Social Work Note HIRO received call from Dimas at [facility] stating paperwork has been signed for Hospice and pt can discharge to [facility] today with Hospice. Dimas states RN will need to call RN Brooke at [facility] for report ([phone]). HIRO informed Dimas that this worker will arrange transportation and let [facility] know the time. Dimas states understanding. HIRO faxed completed discharge paperwork to both [facility] and [facility] including transfer to extended care facility, signed medication list, any scripts, COVID test and COVID tool. Original in SNF Folder and copy on pt's chart. HIRO spoke with RN, pt can transport via cot. HIRO accessed trip assist and arranged transportation via cot for 3:00pm. Transportation form completed and placed on SNF folder and copy on pt's chart. HIRO updated RN on transportation time. HIRO placed a call to Radha at [facility] and left message updating her on transportation time. HIRO placed a call to Dimas at [facility] and updated him on transportation time. HIRO in to speak with pt, pt's and pt's son Bashir. HIRO updated pt, pt's , and pt's son Bashir on discharge back to [facility] with Hospice and transportation time. Pt, pt's and pt's son Bashir all state understanding. Plan: [facility] with Hospice today with Physician's transporting pt at 3:00pm Darline Parks ACCOUNT MANAGEMENT ASSISTANT, LABOR GANG SUPERVISOR
--- NOTE | 2020-09-15 15:24 | NURSING ---
PT TO [facility] VIA CART.
--- NOTE | 2020-09-15 16:29 | PCM.PN.REN ---
Subjective Subjective no new complaints Objective Data Objective Data Vital Signs: Vital Signs Temp Pulse Resp BP Pulse Ox 98.0 F 66 16 101/37 L 96 09/15/20 11:21 09/15/20 11:21 09/15/20 11:21 09/15/20 11:21 09/15/20 11:21 Oxygen Delivery Method Room Air Weight: 75.8 kg Body Mass Index (BMI) 26.2 Intake & Output: Intake and Output for Last 24 Hours 09/13/20 09/14/20 09/15/20 23:59 23:59 23:59 Intake Total 1155 / 1155 3095.01 / 3095.01 110 / 110 Output Total 150 / 150 240 / 240 8030 / 8030 Balance 1005 / 1005 2855.01 / 2855.01 -7920 / -7920 Lab / Micro Data Result Diagrams: 09/14/20 05:31 09/15/20 05:45 Labs: Laboratory Results - last 24 hr 09/14/20 09/15/20 09/15/20 22:20 05:45 05:45 PT 16.6 H INR 1.4 APTT 40.0 H Sodium 132 L Potassium 4.8 Chloride 104 Carbon Dioxide 17.0 L Anion Gap 11 BUN 94 H Creatinine 3.00 H Estim Creat Clear Calc 14.06 Est GFR (MDRD) Af Amer 19 L Est GFR (MDRD) Non-Af 16 L BUN/Creatinine Ratio 31.3 H Glucose 147 H Hemoglobin A1c Calcium 8.1 L Phosphorus 4.5 Magnesium 2.7 H Total Bilirubin 0.70 AST 65 H ALT 42 Alkaline Phosphatase 240 H Total Protein 5.2 L Albumin 1.7 L Globulin 3.5 Albumin/Globulin Ratio 0.5 L POC Glucose 187 H 09/15/20 09/15/20 05:45 05:49 PT INR APTT Sodium Potassium Chloride Carbon Dioxide Anion Gap BUN Creatinine Estim Creat Clear Calc Est GFR (MDRD) Af Amer Est GFR (MDRD) Non-Af BUN/Creatinine Ratio Glucose Hemoglobin A1c 6.6 H Calcium Phosphorus Magnesium Total Bilirubin AST ALT Alkaline Phosphatase Total Protein Albumin Globulin Albumin/Globulin Ratio POC Glucose 148 H Micro: Microbiology 09/14/20 17:45 Interface Orders SARS-CoV-2 Antigen (Rapid) - Final Physical Exam Narrative Alert awake oriented x 3 no obvious distress no pallor no icterus no JVD s1s2 no murmurs lungs clear abdomen soft no organomegaly ++ edema no cyanosis Assessment & Plan Assessment/Plan (1) LISSET (acute kidney injury): PLAN: LISSET is likely due to volume depletion. Urine sodium was less than 20 mmol/L. This is consistent with LISSET due to volume depletion related to diarrhea and poor oral intake. sodium is better with fluids but Cr still high. BUN almost [address]. dw Dr Nicole. poor candidate for dialysis in setting of liver disease. hospice is on consult now (2) Chronic kidney disease, stage 3b: PLAN: The patient has stage IIIb CKD with baseline serum creatinine of around 1.3 to 1.6 mg/dL. CKD is possibly due to diabetic kidney disease. (3) Hyponatremia: PLAN: Hyponatremia appears to be chronic. Serum sodium was 134 in April of this year. However, there is an acute exacerbation of hyponatremia. She presented with serum sodium concentration of 123 mmol/L. Sodium level is better today . (4) Hyperkalemia: PLAN: better (5) Diarrhea: QUALIFIERS: Diarrhea type: unspecified type Qualified Code(s): R19.7 - Diarrhea, unspecified PLAN: Subjectively improved.
== END 2020-09-15 15:20 | DRG 641 ==
LOC: ED 13:57 → MS3 14:59
PROVIDERS: Anesthesiology; Internal Medicine; Internal Medicine Nephrology; Surgery; Admitting Provider Student in an Organized Health Care Education/Training Program; Emergency Provider Emergency Medicine; PCP Family Medicine
PROC: 0W9G30Z Drainage of Peritoneal Cavity with Drainage Device, Percutaneous Approach (ICD-10-PCS; CPT 32550; principal; 2020-09-15 09:15)
DX: E86.9 Volume depletion, unspecified (principal); N17.9 Acute kidney failure, unspecified; R18.8 Other ascites; E87.1 Hypo-osmolality and hyponatremia; E87.5 Hyperkalemia; K75.81 Nonalcoholic steatohepatitis (NASH); I25.10 Atherosclerotic heart disease of native coronary artery without angina pectoris; N18.32 Chronic kidney disease, stage 3b; E03.9 Hypothyroidism, unspecified; Z66 Do not resuscitate; Z95.1 Presence of aortocoronary bypass graft; F32.9 Major depressive disorder, single episode, unspecified; E11.40 Type 2 diabetes mellitus with diabetic neuropathy, unspecified; I12.9 Hypertensive chronic kidney disease with stage 1 through stage 4 chronic kidney disease, or unspecified chronic kidney disease; E78.5 Hyperlipidemia, unspecified; E11.22 Type 2 diabetes mellitus with diabetic chronic kidney disease; R19.7 Diarrhea, unspecified; E11.51 Type 2 diabetes mellitus with diabetic peripheral angiopathy without gangrene; I65.29 Occlusion and stenosis of unspecified carotid artery; Z79.84 Long term (current) use of oral hypoglycemic drugs; Z79.890 Hormone replacement therapy; Z82.49 Family history of ischemic heart disease and other diseases of the circulatory system; Z90.49 Acquired absence of other specified parts of digestive tract; Z88.5 Allergy status to narcotic agent; Z90.710 Acquired absence of both cervix and uterus
CPT/HCPCS: 36415; 80048; 80053; 81001; 82533; 82570; 82962; 83036; 83735; 83930; 83935; 84100; 84133; 84300; 84439; 84443; 84481; 84540; 85025; 85610; 85730; 87426; 92526; 92610; 93005; 97110; 97116; 97162; 97166; 97530; 97535; 97802; 97803; 99285; J7030; J7040; J7120; A4216; C1729; J1940; J2405